=== PATIENT | male | born 1975 | race Caucasian/White ===

== ENCOUNTER → 2022-04-16 | Outpatient (CLI) | payer OTHER, SELFPAY ==
[2022-04-16 17:44] LABS: Absolute Lymphocyte Count 2.52 X10^3/uL (0.83-4.51); Absolute Neutrophil Count 5.1 X10^3/uL (2.0-7.7); Basophil# 0.04 X10^3/uL; Basophil% 0.5 % (0-1); Eosinophil# 0.11 X10^3/uL; Eosinophils% 1.3 % (0-5); Hemoglobin 15.9 g/dL (13.0-16.5); Lymphocyte # 2.52 X10^3/ul (0.83-4.51); Lymphocyte % 29.9 % (19-41); Mean Corp Hgb Conc 35.3 g/dL (32-36); Mean Corpuscular Hgb 32.1 pg (27.0-32.0); Mean Corpuscular Volume 90.9 fL (80-94); Mean Platelet Vol. 9.5 fl (6.2-12.0); Monocyte# 0.64 X10^3/uL; Monocyte% 7.6 % (0-10); NRBC Flagged by Analyzer 0 % (0-5); Neutrophil # 5.08 X10^3/uL (2.7-7.7); Neutrophil % 60.3 % (47-70); Platelet Count 233 K/mm3 (150-450); RBC Distribution Width CV 13.2 % (11.6-14.6); RBC Distribution Width SD 44.2 fl (35.1-43.9); Red Blood Count 4.95 M/mm3 (4.6-6.2); White Blood Count 8.4 K/mm3 (4.4-11.0)
[2022-04-16 18:07] LABS: ALB/GLOB Ratio 1.2 RATIO (0.9-2.4); AST(SGOT) 25 U/L (15-37); Alanine Aminotransfer ALT/SGPT 70 U/L (16-61); Albumin, Serum 3.9 g/dL (3.2-5.0); Alkaline Phosphatase 65 U/L (45-117); Anion Gap 9 (5-15); BUN 10 mg/dL (7-18); BUN/Creat Ratio 9.6 RATIO (10-20); Calcium,Total 9.2 mg/dL (8.5-10.1); Chloride 105 mmol/L (98-107); Cholesterol 247 mg/dL (200); Creatinine, Serum 1.04 mg/dL (0.70-1.30); EST Glomerular Filtration Rate 82 mL/min (>60); Est Glom Filt Rate - Afr Amer 99 mL/min (>60); Globulin 3.3 g/dL (2.2-4.2); Glucose 126 mg/dL (74-106); High Density Lipoprotein 42 mg/dL; Potassium 3.4 mmol/L (3.5-5.1); Protein, Total 7.2 g/dL (6.4-8.2); Sodium Level 140 mmol/L (136-145); Triglycerides 309 mg/dL; Very Low Density Lipoprotein 62 mg/dL (5-40)
== END | disposition home or self-care (01) ==
LOC: BFHLAB 14:42
PROVIDERS: PCP Family Medicine; Visit Provider Family Medicine
DX: Z00.00 Encounter for general adult medical examination without abnormal findings (principal)
CPT/HCPCS: 36415; 80053; 80061; 85025

== ENCOUNTER → 2022-05-11 | Outpatient (CLI) | payer OTHER, SELFPAY | END | disposition home or self-care (01) | LOC: SL 12:15 | PROVIDERS: PCP Family Medicine; Referring Provider Family Medicine; Visit Provider Family Medicine | DX: G47.10 Hypersomnia, unspecified (principal) | CPT/HCPCS: 95806 ==

== ENCOUNTER → 2022-05-18 | Outpatient (CLI) | payer OTHER, SELFPAY ==
[2022-05-26 18:07] LABS: Aldosterone, Serum 2.7 ng/dL (0.0-30.0); Renin, Plasma 0.803 ng/mL/hr (0.167-5.380)
[2022-05-27 15:44] LABS: ALDOSTERONE/RENIN RATIO 3.4 (0.0-30.0)
== END | disposition home or self-care (01) ==
LOC: BFHLAB 14:51
PROVIDERS: PCP Family Medicine; Visit Provider Family Medicine
DX: I10 Essential (primary) hypertension (principal); E87.6 Hypokalemia
CPT/HCPCS: 36415; 82088; 84244

== ENCOUNTER → 2022-05-21 | Outpatient (CLI) | payer OTHER, SELFPAY | END | disposition home or self-care (01) | LOC: SL 20:03 | PROVIDERS: PCP Family Medicine; Visit Provider Family Medicine | DX: G47.33 Obstructive sleep apnea (adult) (pediatric) (principal) | CPT/HCPCS: 95811 ==

== ENCOUNTER 2022-08-25 12:20 | Emergency (ER) | payer OTHER, SELFPAY ==
[2022-08-25 12:21] VITALS: BP 194/124; PULSE 97; RESP 16; TEMP 36.2; O2SAT 101; BMI 31.1
--- NOTE | 2022-08-25 12:36 | EDS_ITS ---
HPI History of Present Illness Chief Complaint: Chest Pain Detail of Chief Complaint: Midsternal chest discomfort, elevated blood pressure, foggy sensation Informant: patient Onset/Context/Timing Onset: Today (Early this morning after awakening) Activity at onset: sudden Timing: Continuous Quality: Positive for - (Discomfort) Location: Substernal Current Severity: Mild Maximum Severity: Moderate Worsened By: Nothing (Nothing specific patient believes it may be due to his elevated blood pressure.) Relieved By: Nothing Associated Symptoms: Positive for - (Previously documented); Negative for Nausea, Vomiting, Diaphoresis, Dyspnea, Cough, Fever, Lightheadedness, Acid Reflux or Palpitations Narrative Narrative: Patient is a 47-year-old male who was started on blood pressure meds. He states the blood pressure meds had no effect. After he was fitted and got his BiPAP machine for sleep apnea his pressure improved markedly. Patient presently complains of head discomfort, bilateral blurry vision, aching discomfort in his chest and left shoulder pain. He denies diaphoresis, nausea, vomiting. He denies dyspnea on exertion. Denies orthopnea or PND. Denies history of VTE. Denies risk factors for VTE. Denies leg pain, swelling discoloration. He denies history of hiatal hernia, reflux, peptic ulcer disease, black or maroon-colored stool. He denies intolerance to greasy or fried foods. He is status post appendectomy. He denies urologic. He denies double vision or loss of vision. Nuys trouble with speech or swallowing. He denies paresthesia, anesthesia or motor weakness upper or lower extremity. He denies problems with coordination or balance. Prior Similar Symptoms: No Recent Illness/Hospitalization: No CVD Risk Factors: Negative for Hypertension, Diabetes, Hypercholesterolemia, Family History 1' </=55 or Smoking PE Risk Factors: Negative for Recent Travel/Surgery, Recent Immobilization, Prior DVT or PE, Cancer or OCP + Smoking + >/=35 TAD Risk Factors: Negative for Marfan's Syndrome, Hypertension or Family History [facility] Medical History HTN (hypertension) Sleep apnea Home Medications labetalol 100 mg tablet 100 mg PO BID #60 tabs 08/25/22 [Rx Last Taken Unknown] metformin 500 mg tablet,extended release 24 hr 500 mg PO DAILY #30 tabs 08/25/22 [Rx Last Taken Unknown] Allergy/AdvReac Type Severity Reaction Status Date / Time No Known Allergies Allergy Verified 11/09/13 22:40 Social History (Updated 08/25/22 @ 12:[address] Keny Delarosa MD) Smoking Status: Former smoker substance use type: does not use ROS ROS ED Constitutional Constitutional ED: Denies chills, fever(s), subjective, sweats or weight loss Eyes Eyes: Reports blurry vision bilateral; Denies change in vision or diplopia ENT ENT ED: Denies ear pain, rhinorrhea or sore throat Cardiovascular Cardiovascular: Reports as per HPI and other Details: Additional information do cumented HPI narrative ; Denies orthopnea or paroxysmal nocturnal dyspnea Respiratory/Chest Respiratory/Chest: Denies cough, dyspnea, dyspnea on exertion, orthopnea, paroxysmal nocturnal dyspnea or sputum Gastrointestinal Gastrointestinal: Reports other Details: Additional information documented in t he HPI narrative ; Denies abdominal pain, constipation, diarrhea, melena, nausea or vomiting Genitourinary Genitourinary ED: Denies dysuria, hematuria or urinary frequency Musculoskeletal Musculoskeletal: Denies arthralgias, back pain, myalgias or neck pain Integumentary Denies Abrasions or rash Neurologic Neurologic: Reports headache(s); Denies paresthesias or other Endocrine Endocrinology: Denies cold intolerance or heat intolerance Hematologic/Lymphatic Hematologic/Lymphatic: Denies easy bleeding or easy bruising EXAM Physical Exam Const Vital Signs: 08/25/22 12:21 08/25/22 12:28 08/25/22 12:28 Temperature 97.1 F L Temperature Source Temporal Pulse Rate 97 Respiratory Rate 16 Respiratory Effort Short of Breath Respiratory Pattern Normal Blood Pressure 194/124 H Blood Pressure Mean 147 Pulse Ox 101 Oxygen Delivery Method Room Air 08/25/22 13:26 08/25/22 13:35 08/25/22 14:07 Temperature Temperature Source Pulse Rate 96 83 Respiratory Rate 16 14 Respiratory Effort Respiratory Pattern Blood Pressure 169/114 H 157/101 H 158/109 H Blood Pressure Mean 132 119 125 Pulse Ox 96 98 Oxygen Delivery Method Room Air Positive well nourished and well developed General Appearance ED: well developed and NAD; Negative for pallor HEENT Reports TM's clear and moist mucous membranes HEENT Narrative: TMs normal. Nares patent. Uvula midline. No deviation of tongue with protrusion. No abnormality the posterior pharynx. Tympanic Membrane ED: Yes TM's clear Eyes PERRL and EOMs intact bilaterally Eyes Narrative: Cup-to-disc ratio normal. There is no papilledema. There appears to be AV nicking noted on the right side. Difficult to see the vessels on the left. General Eye ED: Negative for pale conjunctiva or scleral icterus Neck no lymphadenopathy, supple and no JVD Chest Wall inspection of chest normal and palpation of chest normal Resp normal respiratory effort and clear to auscultation bilaterally Cardio regular rate, regular rhythm, S1 normal heart sound, S2 normal heart sound and no murmurs GI normal to inspection, nondistended, normoactive bowel sounds, soft to palpation, non-tender, non-distended and no masses; Negative for hepatosplenomegaly Back/Spine no CVA tenderness and no thoracic nor lumbar tenderness Extremity normal to inspection Extremity Narrative: There is no asymmetry, swelling, discoloration, leg vein distention, palpable cords or tenderness along the distribution of the deep venous system. General Extremety ED: Negative for edema or pulses abnormal General Extremity: Negative for edema or pulses abnormal Neuro oriented x3, CN's II-XII intact bilaterally, no sensory deficits noted and gait normal Sensorium / Orientation: awake and alert Motor Exam: strength 5/5 throughout Psych mental status grossly normal Skin no rashes or lesions noted and no wounds General Skin Exam: Negative for jaundice or pallor MDM MDM MDM Narrative Medical decision making narrative: Patient has elevated blood pressure of 194/124. Chest pain may be due to elevated afterload versus cardiac ischemia versus other cause. Will obtain EKG, troponin, CBC to assess for anemia, basic metabolic panel to assess renal function. UA was obtained to assess for proteinuria or hematuria. Accessed [facility]. There are no old records available for review. Patient's last hospitalization was in 2014. New Blood pressure as of 07/14/2005 is 159/109. This is equivalent to approximately 15?20% decrease from when he presented. Patient's primary care physician Dr. Hernández was paged to discuss his presentation and need for follow-up. Will recommend labetalol 100 mg twice daily for his blood pressure because of elevated blood pressure and heart rate and will discuss starting patient on metformin since his blood sugar is elevated at 220 and he has evidence of glucosuria. Lab Data Attestation: I reviewed the patient's lab results. Lab results narrative: CBC is unremarkable. Basic metabolic panel does not elevated glucose of 220. CO2 anion gap is normal. Creatinine is elevated. Prior creatinine levels have been normal. Urine is remarkable for mild proteinuria and glucose. Labs: Laboratory Results - last 24 hr 08/25/22 08/25/22 08/25/22 12:35 12:35 13:55 WBC 9.3 RBC 5.17 Hgb 16.2 Hct 47.2 MCV 91.3 MCH 31.3 MCHC 34.3 RDW Std Deviation 40.6 RDW Coeff of Art 12.1 Plt Count 240 MPV 9.4 Sodium 138 Potassium 3.7 Chloride 102 Carbon Dioxide 28.0 Anion Gap 8 BUN 19 H Creatinine 1.36 H Estim Creat Clear Calc 74.49 Est GFR (MDRD) Af Amer 72 Est GFR (MDRD) Non-Af 60 BUN/Creatinine Ratio 14.0 Glucose 220 H Calcium 9.4 Troponin I High Sens 6 Urine Color Yellow Urine Clarity Clear Urine pH 6.0 Ur Specific [place] 1.015 Urine Protein 15 H Urine Glucose (UA) 250 H Urine Ketones Negative Urine Occult Blood Negative Urine Nitrite Negative Urine Bilirubin Negative Urine Urobilinogen Normal Ur Leukocyte Esterase Negative Urine RBC 0 SEEN Urine WBC 0-5 SEEN Ur Squamous Epith Cells 0-5 SEEN Urine Bacteria 0 SEEN Urine Mucus 0 SEEN Rhythm Strip Rhythm Strip: Sinus Rhythm Rate: 87 Ectopy: None EKG Initial EKG: Attestation: I personally reviewed and interpreted this EKG as follows: Interpretation: Sinus Rhythm (Rate is 95. AL interval is 130 ms. QRS durations 96 ms. QT duration 3 and 52 ms. [place] is normal. There is 1/2 mm of J-point elevation in V2. ST segment is straightened. There is no concavity or convexly to the ST segments. This is the only lead the abnormalities noted in.) Treatment and Re-Evaluation Narrative: We will treat with labetalol for his elevated blood pressure. Most recent blood pressure was 169/114 at 1322. He also will need referral to his primary care doctor for hyperglycemia, new onset diabetes Case was discussed with Dr. Hernández. Patient to call the office for follow-up in 1 to 2 weeks. He was prescribed labetalol 100 mg twice daily and metformin. Discharge Plan Triage Chief Complaint: Chest Pain Other Complaint: Hypertension Shortness of Breath ED Provider: Keny Delarosa Dx/Rx/DC Orders Clinical Impression: Hypertension, Elevated serum creatinine, Isolated proteinuria, New onset type 2 diabetes mellitus Instructions: ED Hypertension New Begin Treatment, ED Hyperglycemia New Susp Diabetes Prescriptions: New labetalol 100 mg tablet 100 mg PO BID Qty: 60 0RF metformin 500 mg tablet extended release 24 hr 500 mg PO DAILY Qty: 30 0RF Primary Care Provider: Femi Hernández Referrals: Trish Koenig DO [Med Staff - Active Staff] - 1-2 Weeks Disposition Disposition: Home, Self Care
[2022-08-25 12:53] LABS: Hematocrit 47.2 % (40-54); Hemoglobin 16.2 g/dL (13.0-16.5); Mean Corp Hgb Conc 34.3 g/dL (32-36); Mean Corpuscular Hgb 31.3 pg (27.0-32.0); Mean Corpuscular Volume 91.3 fL (80-94); Mean Platelet Vol. 9.4 fl (6.2-12.0); Platelet Count 240 K/mm3 (150-450); RBC Distribution Width CV 12.1 % (11.6-14.6); RBC Distribution Width SD 40.6 fl (35.1-43.9); Red Blood Count 5.17 M/mm3 (4.6-6.2); White Blood Count 9.3 K/mm3 (4.4-11.0)
[2022-08-25 13:02] LABS: Anion Gap 8 (5-15); BUN 19 mg/dL (7-18); Calcium,Total 9.4 mg/dL (8.5-10.1); Chloride 102 mmol/L (98-107); Creatinine, Serum 1.36 mg/dL (0.70-1.30); EST Glomerular Filtration Rate 60 mL/min (>60); Est Glom Filt Rate - Afr Amer 72 mL/min (>60); Estimated Creatinine Clearance 74.49 ml/min; Glucose 220 mg/dL (74-106); Potassium 3.7 mmol/L (3.5-5.1); Sodium Level 138 mmol/L (136-145); Troponin-I HS 6 pg/mL (3.0-78.0)
[2022-08-25 13:26] VITALS: BP 169/114; PULSE 96; RESP 16; O2SAT 96
[2022-08-25] MEDS: Labetalol (Prefilled) 20 MG/4 ML 10 MG IV (13:27)
[2022-08-25 13:35] VITALS: BP 157/101
[2022-08-25 14:00] LABS: Bacteria 0 SEEN /hpf (None Seen); Mucous, Urine 0 SEEN /hpf (<or=2+); Red Blood Cells-Urine 0 SEEN /hpf (0-5)
[2022-08-25 14:01] LABS: Color, Urine Yellow (Yellow); Glucose, Dipstick 250 mg/dl (Normal); Ketone-Dipstick Negative (Negative); Leukocyte Esterase-Dipstick Negative /ul (Negative); Nitrite-Dipstick Negative (Negative); Occult Blood-Urine Negative /ul (Negative); Protein-Dipstick 15 mg/dl (Negative); Specific Gravity, Urine 1.015 (1.002-1.030); Urine Bilirubin Dipstick Negative (Negative); Urine Clarity Clear (Clear); Urine Urobilinogen Normal (Normal)
[2022-08-25 14:07] VITALS: BP 158/109; PULSE 83; RESP 14; O2SAT 98
[2022-08-25 14:10] LABS: Squamous Epithelial Cells - UA 0-5 SEEN /hpf (0-5); White Blood Cells 0-5 SEEN /hpf (0-5)
[2022-08-25 14:44] VITALS: BP 145/95; PULSE 81; RESP 18; O2SAT 98
== END 2022-08-25 14:44 | disposition home or self-care (01) ==
PROVIDERS: Emergency Provider Emergency Medicine; PCP Family Medicine; Visit Provider Emergency Medicine
DX: E11.65 Type 2 diabetes mellitus with hyperglycemia (principal); G47.30 Sleep apnea, unspecified; I10 Essential (primary) hypertension; Z87.891 Personal history of nicotine dependence; R06.02 Shortness of breath; R07.89 Other chest pain; M25.512 Pain in left shoulder; R51.9 Headache, unspecified; Z79.899 Other long term (current) drug therapy; R79.89 Other specified abnormal findings of blood chemistry; R80.0 Isolated proteinuria
CPT/HCPCS: 80048; 81001; 84484; 85027; 93005; 96374; 99285; A4216

== ENCOUNTER → 2022-09-09 | Outpatient (CLI) | payer OTHER, SELFPAY ==
[2022-09-09 18:10] LABS: Hemoglobin A1c 7.6 % (3.8-5.6)
== END | disposition home or self-care (01) ==
LOC: BFHLAB 15:53
PROVIDERS: PCP Family Medicine; Visit Provider Family Medicine
DX: I10 Essential (primary) hypertension (principal); R73.9 Hyperglycemia, unspecified
CPT/HCPCS: 36415; 83036

== ENCOUNTER → 2022-11-09 | Outpatient (CLI) | payer OTHER, SELFPAY ==
[2022-11-09 18:26] LABS: Hemoglobin A1c 6.6 % (3.8-5.6)
[2022-11-09 18:48] LABS: ALB/GLOB Ratio 1.3 RATIO (0.9-2.4); AST(SGOT) 57 U/L (15-37); Alanine Aminotransfer ALT/SGPT 132 U/L (16-61); Albumin, Serum 4.3 g/dL (3.2-5.0); Alkaline Phosphatase 61 U/L (45-117); Anion Gap 8 (5-15); BUN 11 mg/dL (7-18); BUN/Creat Ratio 9.4 RATIO (10-20); Calcium,Total 9.4 mg/dL (8.5-10.1); Chloride 105 mmol/L (98-107); Cholesterol 199 mg/dL (200); Creatinine, Serum 1.17 mg/dL (0.70-1.30); EST Glomerular Filtration Rate 71 mL/min (>60); Est Glom Filt Rate - Afr Amer 86 mL/min (>60); Globulin 3.3 g/dL (2.2-4.2); Glucose 119 mg/dL (74-106); High Density Lipoprotein 53 mg/dL; Potassium 3.7 mmol/L (3.5-5.1); Protein, Total 7.6 g/dL (6.4-8.2); Sodium Level 139 mmol/L (136-145); Thyroid Stim Hormone (TSH) 1.32 uIU/mL (0.358-3.74); Triglycerides 368 mg/dL; Very Low Density Lipoprotein 74 mg/dL (5-40)
[2022-11-16 11:08] LABS: Testosterone, Free 5.03 ng/dL (5.00-21.00); Testosterone, Total 359 ng/dL (264-916)
== END | disposition home or self-care (01) ==
LOC: BFHLAB 14:34
PROVIDERS: PCP Family Medicine; Referring Provider Family Medicine; Visit Provider Family Medicine
DX: R53.83 Other fatigue (principal); E11.9 Type 2 diabetes mellitus without complications; I10 Essential (primary) hypertension; E78.5 Hyperlipidemia, unspecified
CPT/HCPCS: 36415; 80053; 80061; 83036; 84402; 84403; 84443

== ENCOUNTER → 2022-12-17 | Outpatient (CLI) | payer OTHER, SELFPAY | END | disposition home or self-care (01) | LOC: BFHLAB 15:41 | PROVIDERS: PCP Family Medicine; Referring Provider Family Medicine; Visit Provider Family Medicine | DX: R79.89 Other specified abnormal findings of blood chemistry (principal) | CPT/HCPCS: 36415; 84403 ==

== ENCOUNTER → 2022-12-24 | Outpatient (CLI) | payer OTHER, SELFPAY ==
--- NOTE | 2022-12-24 15:25 | US_ITS ---
STUDY: SUPERFICIAL ULTRASOUND - BILATERAL AXILLA REASON FOR EXAM: Male, 47 years old. B/L AXILLARY FULLNESS AND INTERMITTENT PAIN TECHNIQUE: A superficial ultrasound was performed with real-time and static birch-scale imaging. COMPARISON: None. FINDINGS: Bilateral screening of the axilla shows no definite pathology. There are bilateral lymph nodes, which is typical for the axilla. Largest is 2.9 cm on the left with a fatty hilum. No suspicious mass. No fluid collection. US/Ext Non Vasc Limited/Soft Tiss IMPRESSION: Bilateral axillary lymph nodes with no evidence for pathology. Electronically Signed: Arnold Pruitt MD at 16:54 EDT ,
== END | disposition home or self-care (01) ==
LOC: US 15:08
PROVIDERS: PCP Family Medicine; Referring Provider Family Medicine; Visit Provider Family Medicine
DX: M79.601 Pain in right arm (principal); M79.602 Pain in left arm
CPT/HCPCS: 76882

== ENCOUNTER → 2024-12-19 | Outpatient (CLI) | payer OTHER, SELFPAY ==
[2024-12-19 17:38] LABS: Absolute Lymphocyte Count 2.19 X10^3/uL (0.83-4.51); Absolute Neutrophil Count 3.5 X10^3/uL (2.0-7.7); Basophil# 0.04 X10^3/uL; Basophil% 0.6 % (0-1); Eosinophil# 0.09 X10^3/uL; Eosinophils% 1.4 % (0-5); Hematocrit 42.9 % (40-54); Lymphocyte # 2.19 X10^3/ul (0.83-4.51); Mean Corpuscular Hgb 31.6 pg (27.0-32.0); Mean Corpuscular Volume 90.3 fL (80-94); Mean Platelet Vol. 10.1 fl (6.2-12.0); Monocyte% 9.3 % (0-10); NRBC Flagged by Analyzer 0 % (0-5); Neutrophil # 3.51 X10^3/uL (2.7-7.7); Neutrophil % 54.4 % (47-70); Platelet Count 214 K/mm3 (150-450); RBC Distribution Width CV 12.5 % (11.6-14.6); RBC Distribution Width SD 41.4 fl (35.1-43.9); Red Blood Count 4.75 M/mm3 (4.6-6.2); White Blood Count 6.5 K/mm3 (4.4-11.0)
[2024-12-19 18:30] LABS: ALB/GLOB Ratio 2.1 RATIO (0.9-2.4); AST(SGOT) 28 U/L (<=37); Alanine Aminotransfer ALT/SGPT 46 U/L (<=46); Albumin, Serum 4.6 g/dL (3.5-5.0); Alkaline Phosphatase 73 U/L (40-129); Anion Gap 17 (5-15); BUN 16 mg/dL (4-19); BUN/Creat Ratio 15.4 RATIO (10-20); Calcium,Total 9.6 mg/dL (7.6-11.0); Carbon Dioxide 20.6 mmol/L (21.0-32.0); Chloride 98 mmol/L (98-108); Creatinine, Serum 1.06 mg/dL (0.70-1.20); EST Glomerular Filtration Rate 87 (>60); Globulin 2.2 g/dL (2.2-4.2); Glucose 249 mg/dL (70-99); Potassium 3.8 mmol/L (3.3-5.1); Protein, Total 6.7 g/dL (5.9-8.4); Sodium Level 136 mmol/L (133-145); Total Bilirubin 0.27 mg/dL (0.00-1.30)
[2024-12-19 18:57] LABS: Cholesterol 222 mg/dL (<=200); High Density Lipoprotein 37 mg/dL; Low Density Lipoprotein Calc. 0 mg/dL; Triglycerides 926 mg/dL; Very Low Density Lipoprotein 185 mg/dL (5-40); cholesterol:hdl ratio screen 6.07
[2024-12-19 19:04] LABS: Hemoglobin A1c 8.2 % (<=5.6)
== END | disposition home or self-care (01) ==
LOC: BFHLAB 15:45
PROVIDERS: PCP Family Medicine; Visit Provider Family Medicine
DX: Z00.00 Encounter for general adult medical examination without abnormal findings (principal); E11.9 Type 2 diabetes mellitus without complications
CPT/HCPCS: 36415; 80053; 80061; 83036; 85025

== ENCOUNTER → 2024-12-20 | Outpatient (CLI) | payer OTHER, SELFPAY ==
[2024-12-20 18:58] LABS: Microalbumin,Random Urine < 12.0 mg/L (NO RANGE EST.); Microalbumin:Creatinine Ratio UNABLE TO CALCULATE mg/g CRE
== END | disposition home or self-care (01) ==
LOC: LABSPEC 15:50
PROVIDERS: PCP Family Medicine; Visit Provider Family Medicine
DX: Z00.00 Encounter for general adult medical examination without abnormal findings (principal); E11.9 Type 2 diabetes mellitus without complications
CPT/HCPCS: 82043; 82570

== ENCOUNTER 2025-02-22 06:47 | Day surgery (SDC) | payer OTHER, SELFPAY ==
--- NOTE | 2025-02-21 14:23 | PAT.ANE_ITS ---
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 When Was Last Pacemaker Check QUESTION #4 FULL TEXT: You/Your Family Experience fever (hyperthermia) with Anesthesia Last Oral Intake Last Oral intake: Last Oral Intake NPO since Meds taken in AM with sips of water? 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 Female No 02/21/25 11:02 HX of Motion Sickness No 02/21/25 11:02 HX of N/V After Surgery No 02/21/25 11:02 Non-Smoker Yes 02/21/25 11:02 Duration of Surgery greater No 02/21/25 11:02 than 60 minutes Number of Risk Factors 1 02/21/25 11:02 PONV Score Low Risk 02/21/25 11:02 Height & Weight Height & Weight: Anesthesia: Height & Weight Height 6 ft 01/03/23 14:33 Respiratory Assessment Respiratory Assessment - pneumatic system conveyor operator: Respiratory Tract Infection Hx - pneumatic system conveyor operator Hx Respiratory Tract Infection No 02/21/25 11:02 STOP Sleep Apnea STOP Sleep Apnea - pneumatic system conveyor operator: STOP Sleep Apnea - pneumatic system conveyor operator Hx Hypertension Yes: CONTROLLED WITH MED 02/21/25 11:02 Hx Sleep Apnea Yes 02/21/25 11:02 CPAP No: NONCOMPLIANT 02/21/25 11:02 BIPAP No 02/21/25 11:02 Do you snore loudly (louder than talking or can be heard Do you often feel tired/ fatigued/ sleepy during daytime? Has anyone observed you stop breathing during sleep? STOP Results Positive 02/21/25 11:02 QUESTION #5 FULL TEXT : Do you snore loudly (louder than talking or can be heard through closed doors)? 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 Specify any problems Hx of Preganancy in last 3 N/A 02/21/25 11:02 Months Nurse Filling Out Transfusion NBUCHER 02/21/25 11:02 & Questions: Date: 02/21/25 02/21/25 11:02 Time: 11:03 02/21/25 11:02 Patient unable to answer at this time (ie. confused, unrespo /Reproduction History /Reproductive History - pneumatic system conveyor operator: /Reproductive Hx- pneumatic system conveyor operator Hx Now Gestational Age (in weeks): EDC: Hx Hx Para Hx Section SAB PFSH Medical History (Updated 02/21/25 @ 11:06 by Annemarie Mcclure) Wears contact lenses Wears glasses CPAP (continuous positive airway pressure) dependence Former smoker Allergies High cholesterol Diabetes HTN (hypertension) Sleep apnea Home Medications ?Medication ?Instructions ?Recorded ?Last Taken ?Type metformin 500 mg tablet,extended 500 mg PO DAILY #30 t abs 08/25/22 Unknown Rx release 24 hr labetalol 200 mg tablet 200 mg PO BID 01/03/23 Unkno wn History rosuvastatin 10 mg tablet 10 mg PO DAILY 01/03/23 Unkn own History Allergy/AdvReac Type Severity Reaction Status Date / Time No Known Allergies Allergy Verified 02/21/25 10:59 Family History (Updated 01/03/23 @ 14:33 by Sunshine Valentin) Grandmother Colon cancer Mother Hypertension Surgical History (Updated 02/21/25 @ 11:06 by Annemarie Mcclure) S/P appendectomy S/P knee surgery Social History (Updated 08/25/22 @ 12:[address] Keny Delarosa MD) Smoking Status: Former smoker substance use type: does not use Audit: Pertinent Findings Pertinent Findings EKG Perinent findings: August 25, 2022. Normal sinus rhythm. Nonspecific T wave abnormality. Current Visit Impressions Current Visit Impressions: December 19, 2024. Last hemoglobin A1c is 8.2. This is elevated but within margin of error for lab results. Okay to proceed. Recommendation Anesthesia Recommendation Anesthesia recommendation: OPTIMIZED for anesthesia
[2025-02-22] VITALS (8 sets, daily range): BP systolic 101–135; BP diastolic 64–92; PULSE 65–80; RESP 15–18; TEMP 36.2–37; O2SAT 96–100; BMI 30.7
--- OUTSIDE RECORDS SUMMARY | 2025-02-22 07:08 | XMS RPT_ITS | CCD ---
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 Technician Name Role Phone Unavailable Primary Care Provider Unavailabl e Simakaylee MILLER, Kira A Primary Care Provider KIRA HERNÁNDEZ A Primary Care Unavailable ETSCHEIDT, RAS Referring Unavailable ETSCHEIDT, RAS Referring Unavailable O'MALACHI, KALINA Attending Unavailable SIMA, KIRA A Primary Care Unavailable ETSCHEIDT, RAS Referring Unavailable O'MALACHI, KALINA Attending Unavailable SIMA, KIRA A Primary Care Unavailable ETSCHEIDT, RAS Referring Unavailable O'MALACHI, KALINA Attending Unavailable SIMA, KIRA A Primary Care Unavailable ETSCHEIDT, RAS Referring Unavailable O'MALACHI, KALINA Attending Unavailable SIMA, KIRA A Primary Care Unavailable ETSCHEIDT, RAS Referring Unavailable O'MALACHI, KALINA Attending Unavailable SIMA, KIRA A Primary Care Unavailable ETSCHEIDT, RAS Referring Unavailable O'MALACHI, KALINA Attending Unavailable SIMA, KIRA A Primary Care Unavailable ETSCHEIDT, RAS Referring Unavailable O'MALACHI, KALINA Attending Unavailable SIMA, KIRA A Primary Care Unavailable ETSCHEIDT, RAS Referring Unavailable THOENNES, MCKENA Attending Unavailable SIMA, KIRA A Primary Care Unavailable SIMA, KIRA A Primary Care Unavailable ETSCHEIDT, RAS Referring Unavailable O'MALACHI, KALINA Attending Unavailable SIMA, KIRA A Primary Care Unavailable ETSCHEIDT, RAS Referring Unavailable THOENNES, MCKENA Attending Unavailable SIMA, KIRA A Primary Care Unavailable SIMA, KIRA A Primary Care Unavailable ETSCHEIDT, RAS Referring Unavailable O'MALACHI, KALINA Attending Unavailable SIMA, KIRA A Primary Care Unavailable ETSCHEIDT, RAS Referring Unavailable Sima DO Kira A Primary Care Provider Dr. Kira Hernández DO Primary Care Provider Dr. Kira Hernández DO Attending Provider [phone] Kira Hernández Attending Unavailable Kira Hernández Primary Care Unavailable Sascha Guzman Attending Unavailable Kira Hernández Primary Care Unavailable Kira Hernández Referring Unavailable Kira Hernández Attending Unavailable Kira Hernández Primary Care Unavailable Kira Hernández Referring Unavailable Kira Hernández Attending Unavailable Kira Hernández Primary Care Unavailable Medications Current Medications Medication Drug Class(es) Dates Sig (Normalized) Sig (Original) acetaminophen 325 mg / oxyCODONE hydrochloride 5 mg oral tablet (6 sources) Opioid Agonist Start: 11-10-2013 take 1 tablet by mouth every four hours as needed Oxycodone-Acetami nophen Active 1 - 2 TABLET PO EVERY 4 HOURS NEEDED November 09, 2013 11:00pm Start: 11-09-2013 take 1 tablet by sheila th every eight hours as needed Oxycodone-Acetaminophen Active 1 TABLET PO EVERY 8 HOURS NEEDED November 08, 2013 11:00pm amoxicillin 875 mg / clavulanate 125 mg oral tablet (3 sources) Penicillin-class Antibacterial Start: 09-20-2022 End: 09-27-2022 take 1 tablet by mouth twice daily amoxicillin-clavulanic acid (AUGMENTIN) 875-125 mg per tablet Indications: Acute non-recurrent sinusitis, unspecified location Take 1 tablet by mouth twice daily for 7 days. 14 tablet 0 09/20/2022 09/27/2022 Active Start: 09-01-2022 End: 09-06-2022 take 1 tablet by mouth twice daily amoxicillin-clavulanic acid (AUGMENTIN) 875-125 mg per tablet Take 1 tablet by mouth twice daily for 5 days. 10 tablet 0 09/01/2022 09/06/2022 Active Start: 12-28-2021 End: 01-02-2022 take 1 tablet by mouth twice daily amoxicillin-clavulanic acid (AUGMENTIN) 875-125 mg per tablet Take 1 tablet by mouth twice daily for 5 days. 10 tablet 0 12/28/2021 01/02/2022 Active Comment on above: Take 1 tablet by sheila th twice daily for 5 days. Take 1 tablet by sheila twice daily for 7 days. diazePAM 5 mg oral tablet (3 sources) Benzodiazepine Start: 11-11-19 take 5 mg by mouth three times daily as needed Diazepam Active 5 MG PO 3 TIMES DAILY NEEDED November 09, 2013 11:00pm fexofenadine (13 sources) Histamine-1 Receptor Antagonist fexofenadine HCl (SHEY ALLERGY ORAL) Take by mouth. Active fexofenadine HCl (SHEY ALLERGY ORAL) Take by mouth. 0 Active Comment on above: Take by mouth. fluticasone propionate 0.05 mg/actuat metered dose nasal spray (15 sources) Corticosteroid Start: 01-03-2023 Fluticasone Propionate 50 mcg/actuation spray,suspension Active 1 NMA INTRANASAL DAILY January 03, 2023 12:00am administer into each nostril Start: 08-03-2020 take 1 spray(s) nasa l route once daily at bedtime fluticasone (FLONASE) 50 mcg/actuation nasal spray Use 1 [place] in each nostril daily at bedtime. 18.2 mL 08/03/2020 Active Comment on above: Use 1 [place] in each nostril daily at bedtime. labetalol hydrochloride 200 mg oral tablet (20 sources) beta-Adrenergic Tran Start: 01-03-2023 take 1 tablet by mouth twice daily Labetalol 200 mg tablet Active 200 mg PO TWICE A DAY January 03, 2023 12:00am Start: 08-25-2022 End: 01-03-2023 take 1 tablet by mouth twice daily Labetalol 100 mg tablet Discontinued 100 mg PO TWICE A DAY August 25, 2022 1:00am January 03, 2023 2:35pm Comment on above: Take 100 mg by mouth twice daily. loratadine 10 mg oral tablet (2 sources) Start: take 1 tablet by mouth twice daily Loratadine (Claritin) 10 mg tablet Active 10 mg PO TWICE A DAY January 03, 2023 12:00am 24 hr metFORMIN hydrochloride 500 mg extended release oral tablet (19 sources) Biguanide Start: 023 take 1 tablet by mouth once daily Metformin 500 mg tablet extended release 24 hr Active 500 mg PO DAILY August 25, 2022 1:00am Comment on above: Take 500 mg by mouth once daily. pantoprazole 40 mg delayed release oral tablet (2 sources) Proton Pump Inhibitor Start: 023 Pantoprazole 40 mg tablet,delayed release (DR/EC) Active NMA PO January 03, 2023 12:00am rosuvastatin calcium 10 mg oral tablet (2 sources) HMG-CoA Reductase Inhibitor Start: Rosuvastatin 10 mg tablet Active NMA PO January 03, 2023 12:00am triamcinolone acetonide 0.055 mg/actuat metered dose nasal spray (13 sources) Corticosteroid take 2 spray(s) by inhalation once daily triamcinolone acetonide (NASACORT AQ) 55 mcg nasal inhaler Use 2 Sprays in the nose once daily. Active Comment on above: Use 2 Sprays in the nose once daily. Completed/Discontinued Medications Medication Drug Class(es) Dates Sig (Normalized) Sig (Original) benzonatate 100 mg oral capsule (2 sources) Non-narcotic Antitussive Start: 09-01-2022 End: 09-20-2022 take 1 capsule by mouth every eight hours as needed benzonatate (TESSALON PERLES) 100 mg capsule Take 1 capsule by mouth three times daily as needed for cough. 21 capsule 0 09/01/2022 09/20/2022 Discontinued (Course of therapy completed) Comment on above: Take 1 capsule by mo [facility] three times daily as needed for cough. cyclobenzaprine hydrochloride 10 mg oral tablet (6 sources) Muscle Relaxant Start: 11-09-2013 End: 09-20-2022 take 1 tablet by mouth three times daily as needed for muscle spasms cyclobenzaprine (FLEXERIL) 10 mg tablet Indications: Lumbar strain, sequela Take 1 tablet by mouth three times daily as needed for Muscle Spasm (can make you drowsy). 30 tablet 0 12/10/2015 09/20/2022 Discontinued Comment on above: [facility] daily as needed for Muscle Spasm (can make you drowsy). naproxen 500 mg oral tablet (13 sources) Nonsteroidal Anti-inflammatory Drug Start: 11-10-2013 End: 11-12-2013 take 1 tablet by mouth twice daily Naproxen 500 MG tablet Discontinued 500 mg PO TWICE A DAY November 10, 2013 12:00am November 12, 2013 12:25pm predniSONE 10 mg oral tablet (4 sources) Start: 09-01-2022 End: 09-20-2022 predniSONE (DELTASONE) 10 mg tablet Take 4 tabs daily for 3 days, then 2 tabs daily for 3 days, then 1 tab daily for 3 days with food. 21 tablet 0 09/01/2022 09/20/2022 Discontinued (Course of therapy completed) Start: 12-28-2021 End: 01-02-2022 take 2 tablets by mouth once daily predniSONE (DELTASONE) 20 mg tablet Take 2 tablets by mouth once daily for 5 days. 10 tablet 0 12/28/2021 01/02/2022 Active Start: 12-10-2015 End: 12-28-2021 predniSONE (DELTASONE) 10 mg tablet Indications: Lumbar strain, sequela Take 4 tabs daily for 3 days, then 2 tabs daily for 3 days, then 1 tab daily for 3 days with food. 21 tablet 0 12/10/2015 12/28/2021 Discontinued Comment on above: Take 2 tablets by mo uth once daily for 5 days. Take 4 tabs daily fo r 3 days, then 2 tabs daily for 3 days, then 1 tab daily for 3 days with food. Problems Problem Classification Problem Date Documented Date Episodic/Chronic Allergic reactions (2 sources) Allergic condition; Translations: [Allergy, unspecified, initial encounter] 01-03-2023 Episodic Diabetes mellitus without complication (10 sources) Type 2 diabetes mellitus; Translations: [Type 2 diabetes mellitus without complications] Onset: 06-26-2024 08-25-2022 Chronic Disorders of lipid metabolism (2 sources) Hypercholesterolemia; Translations: [Pure hypercholesterolemia, unspecified] 01-03-2023 Chronic Essential hypertension (7 sources) Hypertensive disorder; Translations: [Essential (primary) hypertension] 08-25-2022 Chronic Genitourinary symptoms and ill-defined conditions (7 sources) Isolated proteinuria; Translations: [Isolated proteinuria] 08-25-2022 Episodic Joint disorders and dislocations; trauma-related (20 sources) Derangement of right knee; Translations: [Unspecified internal derangement of right knee] Onset: 04-27-2023 04-27-2023 Chronic Other connective tissue disease (2 sources) Pain in axilla; Translations: [Pain in left upper arm] 01-03-2023 Episodic Other ear and sense organ disorders (1 source) Otalgia, left ear; Translations: [Otalgia, unspecified] Episodic Other lower respiratory disease (2 sources) Cough; Translations: [Cough] Episodic Other lower respiratory disease (2 sources) Rib pain; Translations: [Pleurodynia] Episodic Other lower respiratory disease (1 source) Cough; Translations: [Acute cough] 09-01-2022 Episodic Other screening for suspected conditions (not mental disorders or infectious disease) (7 sources) Serum creatinine raised; Translations: [Other specified abnormal findings of blood chemistry] 08-25-2022 Episodic Other upper respiratory disease (1 source) Chronic rhinitis; Translations: [Unspecified sinusitis (chronic)] Chronic Other upper respiratory infections (1 source) Acute sinusitis; Translations: [Acute sinusitis, unspecified] Episodic Spondylosis; intervertebral disc disorders; other back problems (13 sources) Herniation of nucleus pulposus of lumbar intervertebral disc; Translations: [Other intervertebral disc displacement, lumbar region] Onset: 11-14-2013 11-14-2013 Chronic Spondylosis; intervertebral disc disorders; other back problems (20 sources) Low back pain; Translations: [Low back pain] Onset: 11-15-2013 11-15-2013 Episodic Substance-related disorders (10 sources) Tobacco dependence syndrome; Translations: [Nicotine dependence, unspecified, uncomplicated] 11-10-2013 Chronic Results Test Name Value Interpretation Reference Range Facility MR/Kwasi 02-21-2025 MR/CARLOS A ORTIZ [facility] Medical Records Department [address] [place] [id number] PAT - Anesthesia 02/21/25 1423 MR#: [id number] Acct: [id number] Name: CHASIDY MAE Rep #: [id number] : 1975 50 From: Geoffrey Guerrero MD PCP: Dr. 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 When Was Last Pacemaker Check QUESTION #4 FULL TEXT: You/Your Family Experience fever (hyperthermia) with Anesthesia Last Oral Intake Last Oral intake: Last Oral Intake NPO since Meds taken in AM with sips of water? 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 Has anyone observed you stop breathing during sleep? STOP Results Positive 02/21/25 11:02 QUESTION #5 FULL TEXT : Do you snore loudly (louder than talking or can be heard through closed doors)? 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 Specify any problems Hx of Preganancy in last 3 N/A 02/21/25 11:02 Months Nurse Filling Out Transfusion NBUCHER 02/21/25 11:02 Questions: Date: 02/21/25 02/21/25 11:02 Time: 11:03 02/21/25 11:02 Patient unable to answer at this time (ie. 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 workers: /Reproductive Hx- farm forestry and garden workers Hx Now Gestational Age (in weeks): EDC: Hx Hx Para Hx Section SAB PFSH Medical History (Updated 02/21/25 @ 11:06 by Annemarie Mcclure) Wears contact lenses Wears glasses CPAP (continuous positive airway pressure) dependence Former smoker Allergies High cholesterol Diabetes HTN (hypertension) Sleep apnea Home Medications ???Medication ???Instructions ???Recorded ???Last Taken ???Type metformin 500 mg tablet,extended 500 mg PO DAILY #30 tabs 08/25/22 Unknown Rx release 24 hr labetalol 200 mg tablet 200 mg PO BID 01/03/23 Unknown His tory rosuvastatin 10 mg tablet 10 mg PO DAILY 01/03/23 Unknown Hi story Allergy/AdvReac Type Severity Reaction Status Date / Time No Known Allergies Allergy Verified 02/21/25 10:59 Family History (Updated 01/03/23 @ 14:33 by Sunshine Valentin) Grandmother Colon cancer Mother Hypertension Surgical History (Updated 02/21/25 @ 11:06 by Annemarie Mcclure) S/P appendectomy S/P knee surgery (more content not included)... Normal [facility] Microalb:Creat Ratio,Random URon 12-20-2024 Creatinine [Mass/Vol] 138.00 mg/dL Normal 39.00- 259.0 0 [facility] Comment on above: Performed By: #### L 502.0250 #### [facility] [address] [place], [place], [id number] MALB:CREAT UNABLE TO CALCULATE Normal [facility] Comment on above: Performed By: #### L 502.0250 #### [facility] [address] [place], [place], [id number] MICROALBUMIN,UR < 12.0 Normal NO RANGE EST. [facility] Comment on above: Performed By: #### L 502.0250 #### [facility] [address] [place], [place], [id number] Microalbumin/creat ratio urO rdered By: Kira Hernández on 12-20-2024 Urine microalbumin/creatinin e ratio measurement UNABLE TO CALCULATE mg/g CRE [facility] Random urine creatinine teresita urement (mass/volume)Ordered By: Kira Hernández on 12-20-2024 Creatinine Unsp time (U) [Mass/Vol] 138.00 mg/dL 39.00-259.0 0 [facility] Urine albumin measurement wi detection limit of 20 mg/L or less (mass/volume)Ordered By: Kira Hernández on 12-20-2024 Albumin DL <= 20 mg/L (U) [Mass/Vol] < 12.0 mg/L NO RANGE EST. [facility] Absolute lymphocyte countOrd ered By: Kira Hernández on 12-19-2024 Lymphocytes Auto (Unsp spec) [#/Vol] 2.19 10*3/uL 0.83-4.51 [facility] Absolute neutrophil countOrd ered By: Kira Hernández on 12-19-2024 Neutrophils (Bld) [#/Vol] 3.5 10*3/uL 2.0-7.7 [facility] Anion gap in Serum or Plasma Ordered By: Kira Hernández on 12-19-2024 Anion gap [Moles/Vol] 17 mmol/L High 5-15 [facility] Automated lymphocyte count a s percentage of total leukocytesOrdered By: Kira Hernández on 12-19-2024 Lymphocytes/100 WBC Auto (Unsp spec) 34.0 % - [facility] BUN/creatinine ratioOrdered By: Kira Hernández on 12-19-2024 Urea nitrogen/Creatinine [Mass ratio] 15.4 mg/mg 10-20 [facility] Basophil percentageOrdered B y: Kira Hernández on 12-19-2024 Basophils/100 WBC (Bld) 0.6 % 0-1 [facility] Bilirubin, totalOrdered By: Kira Hernández on 12-19-2024 Bilirubin [Mass/Vol] 0.27 mg/dL 0.00-1.30 [facility] CBC W/Diff, Automatedon 12-09 Absolute Lymph 2.19 X10 3/uL Normal 0.83-4.51 [facility] Comment on above: Performed By: #### L 100.0100, L500.4050, L501.9985, L502.0250, L500.4100 #### [facility] [address] [place], [address] Absolute Neut 3.5 X10 3/uL Normal 2.0-7.7 [facility] Comment on above: Performed By: #### L 100.0100, L500.4050, L501.9985, L502.0250, L500.4100 #### [facility] [address] [place], [address] Basophils/100 WBC (Bld) 0.6 % Normal 0-1 [facility] Comment on above: Performed By: #### L 100.0100, L500.4050, L501.9985, L502.0250, L500.4100 #### [facility] [address] [place], [address] Eosinophils/100 WBC (Bld) 1.4 % Normal 0-5 [facility] Comment on above: Performed By: #### L 100.0100, L500.4050, L501.9985, L502.0250, L500.4100 #### [facility] [address] [place], [address] Erythrocyte distribution width (RBC) [Ratio] 12.5 % Normal 11.6-14.6 [facility] Comment on above: Performed By: #### L 100.0100, L500.4050, L501.9985, L502.0250, L500.4100 #### [facility] [address] [place], [address] Hematocrit (Bld) [Volume fraction] 42.9 % Normal 40-54 [facility] Comment on above: Performed By: #### L 100.0100, L500.4050, L501.9985, L502.0250, L500.4100 #### [facility] [address] [place], [address] Hemoglobin (Bld) [Mass/Vol] 15.0 g/dL Normal 13.0-16.5 [facility] Comment on above: Performed By: #### L 100.0100, L500.4050, L501.9985, L502.0250, L500.4100 #### [facility] [address] [place] [place], [address] IG% 0.300 Normal 0.0-0.9 [facility] Comment on above: Result Comment: IG% - Immature Granulocytes (promyelocytes, myelocytes and metamyelocytes) > 1% indicates that a LEFT SHIFT is Present. Performed By: #### L 100.0100, L500.4050, L501.9985, L502.0250, L500.4100 #### [facility] [address] [place], [address] Lymphocytes/100 WBC (Bld) 34.0 % Normal 19-41 [facility] Comment on above: Performed By: #### L 100.0100, L500.4050, L501.9985, L502.0250, L500.4100 #### [facility] [address] [place], [address] MCH (RBC) [Entitic mass] 31.6 pg Normal 27.0-32.0 [facility] Comment on above: Performed By: #### L 100.0100, L500.4050, L501.9985, L502.0250, L500.4100 #### [facility] [address] [place], [address] MCHC (RBC) [Mass/Vol] 35.0 g/dL Normal 32-36 [facility] Comment on above: Performed By: #### L 100.0100, L500.4050, L501.9985, L502.0250, L500.4100 #### [facility] [address] [place], [address] MCV (RBC) [Entitic vol] 90.3 fL Normal 80-94 [facility] Comment on above: Performed By: #### L 100.0100, L500.4050, L501.9985, L502.0250, L500.4100 #### [facility] [address] [place], [address] Monocytes/100 WBC (Bld) 9.3 % Normal 0-10 [facility] Comment on above: Performed By: #### L 100.0100, L500.4050, L501.9985, L502.0250, L500.4100 #### [facility] [address] [place], [address] Neutrophils/100 WBC (Bld) 54.4 % Normal 47-70 [facility] Comment on above: Performed By: #### L 100.0100, L500.4050, L501.9985, L502.0250, L500.4100 #### [facility] [address] [place], [address] Nucleated RBC (Bld) [#/Vol] 0 10*3/uL Normal 0-5 [facility] Comment on above: Performed By: #### L 100.0100, L500.4050, L501.9985, L502.0250, L500.4100 #### [facility] [address] [place], [address] Platelet mean volume (Bld) [Entitic vol] 10.1 fL Normal 6.2-12.0 [facility] Comment on above: Performed By: #### L 100.0100, L500.4050, L501.9985, L502.0250, L500.4100 #### [facility] [address] [place], [address] Platelets (Bld) [#/Vol] 214 10*3/uL Normal 150-450 [facility] Comment on above: Performed By: #### L 100.0100, L500.4050, L501.9985, L502.0250, L500.4100 #### [facility] [address] [place], [address] RBC (Bld) [#/Vol] 4.75 10*6/uL Normal 4.6-6.2 [facility] Comment on above: Performed By: #### L 100.0100, L500.4050, L501.9985, L502.0250, L500.4100 #### [facility] [address] [place], [address] RDW SD 41.4 fl Normal 35.1-43.9 [facility] Comment on above: Performed By: #### L 100.0100, L500.4050, L501.9985, L502.0250, L500.4100 #### [facility] [address] [place], [address] WBC (Bld) [#/Vol] 6.5 10*3/uL Normal 4.4-11.0 [facility] Comment on above: Performed By: #### L 100.0100, L500.4050, L501.9985, L502.0250, L500.4100 #### [facility] [address] [place] [place], [address] Calculated very low density lipoprotein (VLDL) cholesterol measurementOrdered By: Kira Hernández on 12-19-2024 Calculated very low density lipoprotein (VLDL) cholesterol measurement 185 mg/dL High 5-40 [facility] Carbon dioxide, total [Moles /volume] in Central venous bloodOrdered By: Kira Hernández on 12-19-2024 CO2 [Moles/Vol] 20.6 mmol/L Low 21.0-32.0 [facility] Chloride assayOrdered By: Latoya caballero Sima on 12-19-2024 Chloride [Moles/Vol] 98 mmol/L 98-108 [facility] Comprehensive Metabolic Prof ilon 12-19-2024 Albumin [Mass/Vol] 4.6 g/dL Normal 3.5-5.0 [facility] Comment on above: Performed By: #### L 100.0100, L500.4050, L501.9985, L502.0250, L500.4100 #### [facility] [address] [place], [address] Albumin/Globulin [Mass ratio] 2.1 {ratio} Normal 0.9-2.4 [facility] Comment on above: Performed By: #### L 100.0100, L500.4050, L501.9985, L502.0250, L500.4100 #### [facility] [address] [place], [address] ALK PHOS 73 U/L Normal 40-129 [facility] Comment on above: Performed By: #### L 100.0100, L500.4050, L501.9985, L502.0250, L500.4100 #### [facility] [address] [place], [address] ALT [Catalytic activity/Vol] 46 U/L Normal <=46 [facility] Comment on above: Performed By: #### L 100.0100, L500.4050, L501.9985, L502.0250, L500.4100 #### [facility] Laboratory [address] [place], [address] AST [Catalytic activity/Vol] 28 U/L Normal <=37 [facility] Comment on above: Performed By: #### L 100.0100, L500.4050, L501.9985, L502.0250, L500.4100 #### [facility] [address] [place], [address] Bilirubin [Mass/Vol] 0.27 mg/dL Normal 0.00-1.30 [facility] Comment on above: Performed By: #### L 100.0100, L500.4050, L501.9985, L502.0250, L500.4100 #### [facility] [address] [place], [address] BUN/CRE 15.4 RATIO Normal 10-20 [facility] Comment on above: Performed By: #### L 100.0100, L500.4050, L501.9985, L502.0250, L500.4100 #### [facility] [address] [place], [address] Calcium [Mass/Vol] 9.6 mg/dL Normal 7.6-11.0 [facility] Comment on above: Performed By: #### L 100.0100, L500.4050, L501.9985, L502.0250, L500.4100 #### [facility] [address] [place], [address] Chloride [Moles/Vol] 98 mmol/L Normal 98-108 [facility] Comment on above: Performed By: #### L 100.0100, L500.4050, L501.9985, L502.0250, L500.4100 #### [facility] [address] [place], [address] CO2 [Moles/Vol] 20.6 mmol/L Low 21.0-32.0 [facility] Comment on above: Performed By: #### L 100.0100, L500.4050, L501.9985, L502.0250, L500.4100 #### [facility] [address] [place], [address] Creatinine [Mass/Vol] 1.06 mg/dL Normal 0.70-1.20 [facility] Comment on above: Performed By: #### L 100.0100, L500.4050, L501.9985, L502.0250, L500.4100 #### [facility] [address] [place], [address] GAP 17 High 5-15 [facility] Comment on above: Performed By: #### L 100.0100, L500.4050, L501.9985, L502.0250, L500.4100 #### [facility] [address] [place], [address] GFR/1.73 sq M.predicted among non-blacks MDRD (S/P/Bld) [Vol rate/Area] 87 mL/min/{1.73_m2} Normal >60 [facility] Comment on above: Result Comment: mL/m in/1.73m2 CKD-EPI Creatinine Equation (2020) Performed By: #### L 100.0100, L500.4050, L501.9985, L502.0250, L500.4100 #### [facility] [address] [place], [address] Globulin (S) [Mass/Vol] 2.2 g/dL Normal 2.2-4.2 [facility] Comment on above: Performed By: #### L 100.0100, L500.4050, L501.9985, L502.0250, L500.4100 #### [facility] [address] [place], [address] Glucose [Mass/Vol] 249 mg/dL High 70-99 [facility] Comment on above: Performed By: #### L 100.0100, L500.4050, L501.9985, L502.0250, L500.4100 #### [facility] [address] [place], [address] Potassium [Moles/Vol] 3.8 mmol/L Normal 3.3-5.1 [facility] Comment on above: Performed By: #### L 100.0100, L500.4050, L501.9985, L502.0250, L500.4100 #### [facility] [address] [place], [address] Sodium [Moles/Vol] 136 mmol/L Normal 133-145 [facility] Comment on above: Performed By: #### L 100.0100, L500.4050, L501.9985, L502.0250, L500.4100 #### [facility] [address] [place], [address] T PROT 6.7 g/dL Normal 5.9-8.4 [facility] Comment on above: Performed By: #### L 100.0100, L500.4050, L501.9985, L502.0250, L500.4100 #### [facility] [address] [place], [address] Urea nitrogen [Mass/Vol] 16 mg/dL Normal 4-19 [facility] Comment on above: Performed By: #### L 100.0100, L500.4050, L501.9985, L502.0250, L500.4100 #### [facility] [address] [place], [place], [address] Eosinophil percentageOrdered By: Kira Hernández on 12-19-2024 Eosinophils/100 WBC (Bld) 1.4 % 0-5 [facility] Erythrocyte distribution wid th ratioOrdered By: Kira Hernández on 12-19-2024 Erythrocyte distribution width (RBC) [Ratio] 12.5 % 11.6-14.6 [facility] Erythrocyte distribution wid th standard deviationOrdered By: Kira GeorgeSima on 12-19-2024 Erythrocyte distribution width (RBC) [Ratio] 41.4 fl 35.1-43.9 [facility] Glomerular filtration rate ( GFR) estimation/1.73 sq m using serum, plasma, or whole bOrdered By: Kira Hernández on 12-19-2024 GFR/1.73 sq M.predicted among non-blacks MDRD (S/P/Bld) [Vol rate/Area] 87 mL/min/{1.73_m2} >60 [facility] Comment on above: mL/min/1.73m2 CKD-EP I Creatinine Equation (2020) Hematocrit Auto (Bld) [Volum e fraction]Ordered By: Kira Sima on 12-19-2024 Hematocrit (Bld) [Volume fraction] 42.9 % 40-54 [facility] Hemoglobin A1con 12-19-2024 HbA1c (Bld) [Mass fraction] 8.2 % High <=5.6 [facility] Comment on above: Result Comment: Norm al < 5.7 % Prediabetic 5.7 - 6.4 % Diabetic >or= 6.5 % Please note range changes. Performed By: #### L 100.0100, L500.4050, L501.9985, L502.0250, L500.4100 #### [facility] [address] [place], [place], [address] Hemoglobin A1c percentageOrd ered By: Kira Hernández on 12-19-2024 HbA1c (Bld) [Mass fraction] 8.2 % High <5.7 [facility] Comment on above: Normal < 5.7 % Predi abetic 5.7 - 6.4 % Diabetic >or= 6.5 % Please note range changes. Hemoglobin measurementOrdere d By: Kira Hernández on 12-19-2024 Hemoglobin (Bld) [Mass/Vol] 15.0 g/dL 13.0-16.5 [facility] Immature granulocytes/100 WB C Auto (Bld)Ordered By: Kira Hernández on 12-19-2024 Immature granulocytes/100 WBC (Bld) 0.300 % 0.0-0.9 [facility] Comment on above: IG% - Immature Granu locytes (promyelocytes, myelocytes and metamyelocytes) > 1% indicates that a LEFT SHIFT is Present. LDL calc ser/plasOrdered By: Kira Hernández on 12-19-2024 Cholesterol in LDL [Mass/Vol] 0 mg/dL [facility] Comment on above: Mhnppekveq=168-207 m g/dL & Higher Obkv=842 mg/dL or greater Laboratory - Chemistry and C hemistry - challengeOrdered By: Kira Hernández on 12-19-2024 AST [Catalytic activity/Vol] 28 U/L <38 [facility] Lipid Profileon 12-19-2024 CHOL:HDL 6.07 Normal [facility] Comment on above: Performed By: #### L 100.0100, L500.4050, L501.9985, L502.0250, L500.4100 #### [facility] [address] [place], [address] Cholesterol [Mass/Vol] 222 mg/dL High <=200 [facility] Comment on above: Result Comment: Chol esterol level, Desirable <200 mg/dL Borderline high cholesterol 200-239 mg/dL High cholesterol >=240 mg/dL Recommendations of the NCEP Adult Treatment Panel for the following risk-cutoff thresholds for the [place] population. Performed By: #### L 100.0100, L500.4050, L501.9985, L502.0250, L500.4100 #### [facility] [address] [place], [address] Cholesterol in HDL [Mass/Vol] 37 mg/dL Low [facility] Comment on above: Result Comment: [place] Cholesterol Education Program (NCEP) guidelines: <40 mg/dL: Low HDL-cholesterol (major risk factor for CHD) >= 60 mg/dL: High HDL-cholesterol (negative risk factor for CHD) HDL-cholesterol is affected by a number of factors, e.g. smoking, exercise, hormones, sex and age. Performed By: #### L 100.0100, L500.4050, L501.9985, L502.0250, L500.4100 #### [facility] [address] [place], [address] Cholesterol in LDL [Mass/Vol] 0 mg/dL Normal [facility] Comment on above: Result Comment: Bord lrjmna=882-220 mg/dL Higher Zayv=170 mg/dL or greater Performed By: #### L 100.0100, L500.4050, L501.9985, L502.0250, L500.4100 #### [facility] [address] [place], [address] Cholesterol in VLDL [Mass/Vol] 185 mg/dL High 5-40 [facility] Comment on above: Performed By: #### L 100.0100, L500.4050, L501.9985, L502.0250, L500.4100 #### [facility] [address] [place], [address] Triglyceride [Mass/Vol] 926 mg/dL High [facility] Comment on above: Result Comment: The drugs N-Acetylcysteine and Metamizole may falsely depress this assay. Normal range: <150 mg/dL Borderline High: 150-199 mg/dL High: 200-499 mg/dL Very High: >500 mg/dL Performed By: #### L 100.0100, L500.4050, L501.9985, L502.0250, L500.4100 #### [facility] [address] [place], [address] MCV (mean corpuscular volume ) determinationOrdered By: iKra Hernández on 12-19-2024 MCV (RBC) [Entitic vol] 90.3 fL 80-94 [facility] Mean corpuscular hemoglobin (MCH) determinationOrdered By: Kira Hernández on 12-19-2024 MCH (RBC) [Entitic mass] 31.6 pg 27.0-32.0 [facility] Mean corpuscular hemoglobin concentration (MCHC) determinationOrdered By: Kira Hernández on 12-19-2024 MCHC (RBC) [Mass/Vol] 35.0 g/dL 32-36 [facility] Mean platelet volume determi nationOrdered By: Kira Hernández on 12-19-2024 Platelet mean volume (Bld) [Entitic vol] 10.1 fL 6.2-12.0 [facility] Microalb:Creat Ratio,Random URon 12-19-2024 MALB:CREAT Normal [facility] Comment on above: Result Comment: UTO Performed By: #### L 100.0100, L500.4050, L501.9985, L502.0250, L500.4100 #### [facility] [address] [place], [address] MICROALBUMIN,UR Normal NO RANGE EST. [facility] Comment on above: Result Comment: UTO Performed By: #### L 100.0100, L500.4050, L501.9985, L502.0250, L500.4100 #### [facility] [address] [place], [address] UR CREAT Normal 39.00-259.0 0 [facility] Comment on above: Result Comment: UTO Performed By: #### L 100.0100, L500.4050, L501.9985, L502.0250, L500.4100 #### [facility] [address] [place], [address] Monocyte percentageOrdered B y: Kira Hernández on 12-19-2024 Monocytes/100 WBC (Bld) 9.3 % 0-10 [facility] Neutrophil percentageOrdered By: Kira Hernández on 12-19-2024 Neutrophils/100 WBC (Bld) 54.4 % 47-70 [facility] Nucleated red blood cell per centageOrdered By: Kira Hernández on 12-19-2024 Nucleated RBC/100 WBC (Bld) [Ratio] 0 % 0-5 [facility] Platelet countOrdered By: Latoya Hernández on 12-19-2024 Platelets (Bld) [#/Vol] 214 10*3/uL 150-450 [facility] Potassium measurement (mass/ volume)Ordered By: Kira Hernández on 12-19-2024 Potassium (Unsp spec) [Mass/Vol] 3.8 mmol/L 3.3-5.1 [facility] RBC Auto (Bld) [#/Vol]Ordere d By: Kira Hernández on 12-19-2024 RBC (Bld) [#/Vol] 4.75 10*6/uL 4.6-6.2 [facility] Screening total cholesterol/ high density lipoprotein (HDL) cholesterol ratioOrdered By: Kira Hernández on 12-19-2024 Cholesterol.total/Chol esterol in HDL [Mass ratio] 6.07 {ratio} [facility] Serum creatinine measurement (mass/volume)Ordered By: Kira Hernández on 12-19-2024 Creatinine [Mass/Vol] 1.06 mg/dL 0.70-1.20 [facility] Serum globulin measurementOr dered By: Kira Hernández on 12-19-2024 Globulin (S) [Mass/Vol] 2.2 g/dL 2.2-4.2 [facility] Serum glucose measurement (m ass/volume)Ordered By: Kira Hernández on 12-19-2024 Glucose [Mass/Vol] 249 mg/dL High 70-99 [facility] Serum or plasma alanine ashton otransferase (ALT) measurementOrdered By: Kira Hernández on 12-19-2024 ALT [Catalytic activity/Vol] 46 U/L <47 [facility] Serum or plasma albumin teresita urement (mass/volume)Ordered By: Kira Hernández on 12-19-2024 Albumin [Mass/Vol] 4.6 g/dL 3.5-5.0 [facility] Serum or plasma albumin/glob ulin mass ratioOrdered By: Kira Hernández on 12-19-2024 Albumin/Globulin [Mass ratio] 2.1 {ratio} 0.9-2.4 [facility] Serum or plasma alkaline pritesh sphatase measurementOrdered By: Kira Hernández on 12-19-2024 ALP [Catalytic activity/Vol] 73 U/L 40-129 [facility] Serum or plasma calcium teresita urement (mass/volume)Ordered By: Kira Hernández on 12-19-2024 Calcium [Mass/Vol] 9.6 mg/dL 7.6-11.0 [facility] Serum or plasma cholesterol in HDL measurement (mass/volume)Ordered By: Kira Hernández on 12-19-2024 Cholesterol in HDL [Mass/Vol] 37 mg/dL Low >40 [facility] Comment on above: National Cholesterol Education Program (NCEP) guidelines:<40 mg/dL: Low HDL-cholesterol (major risk factor for CHD)>= 60 mg/dL: High HDL-cholesterol (negative risk factor for CHD)HDL-cholesterol is affected by a number of factors, e.g. smoking, exercise, hormones, sex and age. Serum or plasma cholesterol measurement (mass/volume)Ordered By: Kira Hernández on 12-19-2024 Cholesterol [Mass/Vol] 222 mg/dL High <201 [facility] Comment on above: Cholesterol level, D esirable <200 mg/dLBorderline high cholesterol 200-239 mg/dLHigh cholesterol >=240 mg/dLRecommendations of the NCEP Adult Treatment Panel for the following risk-cutoff thresholds for the [place] population. Serum or plasma urea nitroge n measurement (mass/volume)Ordered By: Kira Hernández on 12-19-2024 Urea nitrogen [Mass/Vol] 16 mg/dL 4-19 [facility] Sodium levelOrdered By: Kira Hernández on 12-19-2024 Sodium [Moles/Vol] 136 mmol/L 133-145 [facility] Total proteinOrdered By: Lisa Hernández on 12-19-2024 Protein [Mass/Vol] 6.7 g/dL 5.9-8.4 [facility] Triglycerides measurementOrd ered By: Kira Hernández on 12-19-2024 Triglyceride [Mass/Vol] 926 mg/dL High <199 [facility] Comment on above: The drugs N-Acetylcy steine and Metamizole may falsely depress this assay. Normal range: <150 mg/dLBorderline High: 150-199 mg/dLHigh: 200-499 mg/dLVery High: >500 mg/dL White blood cell (WBC) count Ordered By: Kira Hernández on 12-19-2024 WBC (Bld) [#/Vol] 6.5 10*3/uL 4.4-11.0 [facility] CNTHERAPYon 08-31-2023 CNTHERAPY OT/PT/Speech Visit ( PTWS) CHASIDY MAE ([id number]) 1975 M Date Time Provider Department 08/31/23 3:00 PM KALINA HULL Date Time Provider Department Center 08/31/2023 3:00 PM [id number] HULL PTEMMIE [facility] Reason for Visit: PT Discharge [752] Primary Visit Diagnosis: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 [M23.203] Allergies As of Date: 08/31/2023 (No Known Allergies) Date Reviewed: 09/20/2022 Reviewed by: Laura Li MA - Fully Assessed Prescriptions as of 08/31/2023 - labetalol (TRANDATE) 100 mg tablet Take 100 mg by mouth twice daily. - metFORMIN ER (GLUCOPHAGE XR) 500 mg 24 hr tablet Take 500 mg by mouth once daily. - triamcinolone acetonide (NASACORT AQ) 55 mcg nasal inhaler Use 2 Sprays in the nose once daily. - fexofenadine HCl (SHEY ALLERGY ORAL) Take by mouth. - fluticasone (FLONASE) 50 mcg/actuation nasal spray Use 1 [place] in each nostril daily at bedtime. Normal [facility] CNTHERAPYon 08-29-2023 CNTHERAPY OT/PT/Speech Visit ( PTWS) CHASIDY MAE ([id number]) 1975 M Date Time Provider Department 08/29/23 2:45 PM KALINA HULL Date Time Provider Department Center 08/29/2023 2:45 PM [id number] HULL Reason for Visit: Physical Therapy [503] Primary Visit Diagnosis: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 [M23.203] Allergies As of Date: 08/29/2023 (No Known Allergies) Date Reviewed: 09/20/2022 Reviewed by: Laura Li MA - Fully Assessed Prescriptions as of 08/29/2023 - labetalol (TRANDATE) 100 mg tablet Take 100 mg by mouth twice daily. - metFORMIN ER (GLUCOPHAGE XR) 500 mg 24 hr tablet Take 500 mg by mouth once daily. - triamcinolone acetonide (NASACORT AQ) 55 mcg nasal inhaler Use 2 Sprays in the nose once daily. - fexofenadine HCl (SHEY ALLERGY ORAL) Take by mouth. - fluticasone (FLONASE) 50 mcg/actuation nasal spray Use 1 [place] in each nostril daily at bedtime. Chief Specialist Leed: Addendum Therapy (PT/OT/Speech/Resp) ID: [id number] 08/29/2023 3:07 PM Author: KALINA HULL Signed by KALINA HULL PT on 08/29/2023 at 3:07 PM * * * This document replaces document [id number] * * * Document text: Program_ID:[id number] Access Code: [email or web address] URL: [email or web address] Date: 08-29-2023 Prepared By: Kalina Hull Program Notes Exercises - Lateral Step Down - 2 x daily - 7 x weekly - 4 sets - 8 reps - Standing Terminal Knee Extension with Resistance - 2 x daily - 7 x weekly - 3 sets - 20 reps - Standing Heel Raise - 2 x daily - 7 x weekly - 2 sets - 15 reps - Standing Single Leg Stance with Counter Support - 2 x daily - 7 x weekly - 3-5 sets - 1 reps Normal [facility] THERAPY NTon 08-29-2023 THERAPY NT HNO ID: [id number] Author: KALINA HULL PT Service: ? Author Type: Physical Therapist Type: Therapy (PT/OT/Speech/Resp) Filed: 08/29/2023 15:06 Note Text: Program_ID:[id number] Access Code: [email or web address] URL: [email or web address] Date: 08-29-2023 Prepared By: Kalina Hull Program Notes Exercises - Lateral Step Down - 2 x daily - 7 x weekly - 4 sets - 8 reps - Standing Terminal Knee Extension with Resistance - 2 x daily - 7 x weekly - 3 sets - 20 reps - Standing Heel Raise - 2 x daily - 7 x weekly - 2 sets - 15 reps Normal [facility] CNTHERAPYon 08-25-2023 CNTHERAPY OT/PT/Speech Visit ( PTWS) CHASIDY MAE ([id number]) 1975 M Date Time Provider Department 08/25/23 3:00 PM SRAVANI GUERRA Date Time Provider Department Center 08/25/2023 3:00 PM [id number] GUERRA Reason for Visit: Physical Therapy [503] Primary Visit Diagnosis: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 [M23.203] Allergies As of Date: 08/25/2023 (No Known Allergies) Date Reviewed: 09/20/2022 Reviewed by: Laura Li MA - Fully Assessed Prescriptions as of 08/25/2023 - labetalol (TRANDATE) 100 mg tablet Take 100 mg by mouth twice daily. - metFORMIN ER (GLUCOPHAGE XR) 500 mg 24 hr tablet Take 500 mg by mouth once daily. - triamcinolone acetonide (NASACORT AQ) 55 mcg nasal inhaler Use 2 Sprays in the nose once daily. - fexofenadine HCl (SHEY ALLERGY ORAL) Take by mouth. - fluticasone (FLONASE) 50 mcg/actuation nasal spray Use 1 [place] in each nostril daily at bedtime. Normal [facility] CNTHERAPYon 08-22-2023 CNTHERAPY OT/PT/Speech Visit ( PTWS) CHASIDY MAE ([id number]) 1975 M Date Time Provider Department 08/22/23 2:45 PM KALINA HULL Date Time Provider Department Center 08/22/2023 2:45 PM [id number] HULL Reason for Visit: Physical Therapy [503] Primary Visit Diagnosis: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 [M23.203] Allergies As of Date: 08/22/2023 (No Known Allergies) Date Reviewed: 09/20/2022 Reviewed by: Laura Li MA - Fully Assessed Prescriptions as of 08/22/2023 - labetalol (TRANDATE) 100 mg tablet Take 100 mg by mouth twice daily. - metFORMIN ER (GLUCOPHAGE XR) 500 mg 24 hr tablet Take 500 mg by mouth once daily. - triamcinolone acetonide (NASACORT AQ) 55 mcg nasal inhaler Use 2 Sprays in the nose once daily. - fexofenadine HCl (SHEY ALLERGY ORAL) Take by mouth. - fluticasone (FLONASE) 50 mcg/actuation nasal spray Use 1 [place] in each nostril daily at bedtime. Normal [facility] CNTHERAPYon 08-18-2023 CNTHERAPY OT/PT/Speech Visit ( PTWS) CHASIDY MAE ([id number]) 1975 M Date Time Provider Department 08/18/23 3:00 PM SRAVANI GUERRA Date Time Provider Department [place] 08/18/2023 3:00 PM [id number] GUERRA Reason for Visit: Physical Therapy [503] Primary Visit Diagnosis: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 [M23.203] Allergies As of Date: 08/18/2023 (No Known Allergies) Date Reviewed: 09/20/2022 Reviewed by: Laura Li MA - Fully Assessed Prescriptions as of 08/18/2023 - labetalol (TRANDATE) 100 mg tablet Take 100 mg by mouth twice daily. - metFORMIN ER (GLUCOPHAGE XR) 500 mg 24 hr tablet Take 500 mg by mouth once daily. - triamcinolone acetonide (NASACORT AQ) 55 mcg nasal inhaler Use 2 Sprays in the nose once daily. - fexofenadine HCl (SHEY ALLERGY ORAL) Take by mouth. - fluticasone (FLONASE) 50 mcg/actuation nasal spray Use 1 [place] in each nostril daily at bedtime. Normal [facility] CNTHERAPYon 08-15-2023 CNTHERAPY OT/PT/Speech Visit ( PTWS) CATRACHITOCHASIDY SAWYER ([id number]) 1975 M Date Time Provider Department 08/15/23 2:45 PM KALINA HULL PTWS Date Time Provider Department [place] 08/15/2023 2:45 PM [id number] HULL PTEMMIE Mullen Reason for Visit: Physical Therapy [503] Primary Visit Diagnosis: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 [M23.203] Allergies As of Date: 08/15/2023 (No Known Allergies) Date Reviewed: 09/20/2022 Reviewed by: Laura Li MA - Fully Assessed Prescriptions as of 08/15/2023 - labetalol (TRANDATE) 100 mg tablet Take 100 mg by mouth twice daily. - metFORMIN ER (GLUCOPHAGE XR) 500 mg 24 hr tablet Take 500 mg by mouth once daily. - triamcinolone acetonide (NASACORT AQ) 55 mcg nasal inhaler Use 2 Sprays in the nose once daily. - fexofenadine HCl (SHEY ALLERGY ORAL) Take by mouth. - fluticasone (FLONASE) 50 mcg/actuation nasal spray Use 1 [place] in each nostril daily at bedtime. Chief Specialist Leed: Addendum Therapy (PT/OT/Speech/Resp) ID: [id number] 08/15/2023 3:01 PM Author: KALINA HULL Signed by KALINA HULL PT on 08/15/2023 at 3:01 PM * * * This document replaces document [id number] * * * Document text: Program_ID:[id number] Access Code: [email or web address] URL: [email or web address] Date: 08-15-2023 Prepared By: Kalina Hull Program Notes Exercises - Lateral Step Down - 2 x daily - 7 x weekly - 4 sets - 8 reps - Standing Terminal Knee Extension with Resistance - 2 x daily - 7 x weekly - 3 sets - 20 reps - Prone Knee Flexion - 2 x daily - 7 x weekly - 3 sets - 20 reps Normal [facility] THERAPY NTon 08-15-2023 THERAPY NT HNO ID: [id number] Author: KALINA HULL, PT Service: ? Author Type: Physical Therapist Type: Therapy (PT/OT/Speech/Resp) Filed: 08/15/2023 15:00 Note Text: Program_ID:[id number] Access Code: [email or web address] URL: [email or web address] Date: 08-15-2023 Prepared By: Kalina Hull Program Notes Exercises - Lateral Step Down - 2 x daily - 7 x weekly - 4 sets - 8 reps - Standing Terminal Knee Extension with Resistance - 2 x daily - 7 x weekly - 3 sets - 20 reps Normal [facility] CNTHERAPYon 08-12-2023 CNTHERAPY OT/PT/Speech Visit ( PTWS) CHASIDY MAE ([id number]) 1975 M Date Time Provider Department 08/12/23 2:45 PM JALEESA DICKERSON PTWS Date Time Provider Department Center 08/12/2023 2:45 PM [id number] DICKERSON Reason for Visit: Physical Therapy [503] Primary Visit Diagnosis: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 [M23.203] Allergies As of Date: 08/12/2023 (No Known Allergies) Date Reviewed: 09/20/2022 Reviewed by: Laura Li MA - Fully Assessed Prescriptions as of 08/12/2023 - labetalol (TRANDATE) 100 mg tablet Take 100 mg by mouth twice daily. - metFORMIN ER (GLUCOPHAGE XR) 500 mg 24 hr tablet Take 500 mg by mouth once daily. - triamcinolone acetonide (NASACORT AQ) 55 mcg nasal inhaler Use 2 Sprays in the nose once daily. - fexofenadine HCl (SHEY ALLERGY ORAL) Take by mouth. - fluticasone (FLONASE) 50 mcg/actuation nasal spray Use 1 [place] in each nostril daily at bedtime. Normal [facility] CNTHERAPYon 08-08-2023 CNTHERAPY OT/PT/Speech Visit ( PTWS) CHASIDY MAE ([id number]) 1975 M Date Time Provider Department 08/08/23 12:30 PM JALEESA DICKERSON PTWS Date Time Provider Department Center 08/08/2023 12:30 PM [id number], MARIAH PTEMMIE Mullen Reason for Visit: Physical Therapy [503] Primary Visit Diagnosis: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 [M23.203] Allergies As of Date: 08/08/2023 (No Known Allergies) Date Reviewed: 09/20/2022 Reviewed by: Laura Li MA - Fully Assessed Prescriptions as of 08/08/2023 - labetalol (TRANDATE) 100 mg tablet Take 100 mg by mouth twice daily. - metFORMIN ER (GLUCOPHAGE XR) 500 mg 24 hr tablet Take 500 mg by mouth once daily. - triamcinolone acetonide (NASACORT AQ) 55 mcg nasal inhaler Use 2 Sprays in the nose once daily. - fexofenadine HCl (SHEY ALLERGY ORAL) Take by mouth. - fluticasone (FLONASE) 50 mcg/actuation nasal spray Use 1 [place] in each nostril daily at bedtime. Normal [facility] CNTHERAPYon 08-01-2023 CNTHERAPY OT/PT/Speech Visit ( PTWS) CHASIDY MAE ([id number]) 1975 M Date Time Provider Department 08/01/23 2:00 PM KALINA HULL Date Time Provider Department Center 08/01/2023 2:00 PM [id number] HULL Reason for Visit: PT Eval [747] Primary Visit Diagnosis: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 [M23.203] Allergies As of Date: 08/01/2023 (No Known Allergies) Date Reviewed: 09/20/2022 Reviewed by: Laura Li MA - Fully Assessed Prescriptions as of 08/01/2023 - labetalol (TRANDATE) 100 mg tablet Take 100 mg by mouth twice daily. - metFORMIN ER (GLUCOPHAGE XR) 500 mg 24 hr tablet Take 500 mg by mouth once daily. - triamcinolone acetonide (NASACORT AQ) 55 mcg nasal inhaler Use 2 Sprays in the nose once daily. - fexofenadine HCl (SHEY ALLERGY ORAL) Take by mouth. - fluticasone (FLONASE) 50 mcg/actuation nasal spray Use 1 [place] in each nostril daily at bedtime. Chief Specialist Leed: Addendum Therapy (PT/OT/Speech/Resp) ID: [id number] 08/01/2023 2:16 PM Author: KALINA HULL Signed by KALINA HULL PT on 08/01/2023 at 2:16 PM * * * This document replaces document [id number] * * * Document text: Program_ID:[id number] Access Code: [email or web address] URL: [email or web address] Date: 08-01-2023 Prepared By: Kalina Hull Program Notes Exercises - Supine Heel Slide - 3 x daily - 7 x weekly - 3 sets - 10 reps - Supine Knee Extension Strengthening - 3 x daily - 7 x weekly - 4 sets - 8 reps - Active Straight Leg Raise with Quad Set - 3 x daily - 7 x weekly - 2 sets - 8 reps Letter Text Normal [facility] THERAPY NTon 08-01-2023 THERAPY NT HNO ID: [id number] Author: KALINA HULL PT Service: ? Author Type: Physical Therapist Type: Therapy (PT/OT/Speech/Resp) Filed: 08/01/2023 14:11 Note Text: Program_ID:[id number] Access Code: [email or web address] URL: [email or web address] Date: 08-01-2023 Prepared By: Kalina Hull Program Notes Exercises - Supine Heel Slide - 1 x daily - 7 x weekly - 3 sets - 10 reps - Supine Knee Extension Strengthening - 1 x daily - 7 x weekly - 3 sets - 10 reps - Active Straight Leg Raise with Quad Set - 1 x daily - 7 x weekly - 3 sets - 10 reps Normal [facility] CNTHERAPYon 05-30-2023 CNTHERAPY OT/PT/Speech Visit ( PTWS) CHASIDY MAE ([id number]) 1975 M Date Time Provider Department 05/30/23 4:15 PM KALINA HULL PTEMMIE Date Time Provider Department Center 05/30/2023 4:15 PM [id number] HULL PTEMMIE Mullen Reason for Visit: PT Discharge [752] Primary Visit Diagnosis:Knee internal derangement, right [M23.91] Allergies As of Date: 05/30/2023 (No Known Allergies) Date Reviewed: 09/20/2022 Reviewed by: Laura Li MA - Fully Assessed Prescriptions as of 07/15/2023 - labetalol (TRANDATE) 100 mg tablet Take 100 mg by mouth twice daily. - metFORMIN ER (GLUCOPHAGE XR) 500 mg 24 hr tablet Take 500 mg by mouth once daily. - triamcinolone acetonide (NASACORT AQ) 55 mcg nasal inhaler Use 2 Sprays in the nose once daily. - fexofenadine HCl (SHEY ALLERGY ORAL) Take by mouth. - fluticasone (FLONASE) 50 mcg/actuation nasal spray Use 1 [place] in each nostril daily at bedtime. Letter Text [facility] CNTHERAPYon 05-23-2023 CNTHERAPY OT/PT/Speech Visit ( PTWS) CHASIDY MAE ([id number]) 1975 M Date Time Provider Department 05/23/23 4:15 PM KALINA HULL PTEMMIE Date Time Provider Department Center 05/23/2023 4:15 PM [id number] HULL Reason for Visit: Physical Therapy [503] Primary Visit Diagnosis:Knee internal derangement, right [M23.91] Allergies As of Date: 05/23/2023 (No Known Allergies) Date Reviewed: 09/20/2022 Reviewed by: Laura Li MA - Fully Assessed Prescriptions as of 05/23/2023 - labetalol (TRANDATE) 100 mg tablet Take 100 mg by mouth twice daily. - metFORMIN ER (GLUCOPHAGE XR) 500 mg 24 hr tablet Take 500 mg by mouth once daily. - triamcinolone acetonide (NASACORT AQ) 55 mcg nasal inhaler Use 2 Sprays in the nose once daily. - fexofenadine HCl (SHEY ALLERGY ORAL) Take by mouth. - fluticasone (FLONASE) 50 mcg/actuation nasal spray Use 1 [place] in each nostril daily at bedtime. Normal [facility] CNTHERAPYon 05-10-2023 CNTHERAPY OT/PT/Speech Visit ( PTWS) CHASIDY MAE ([id number]) 1975 M Date Time Provider Department 05/10/23 4:30 PM KALINA HULL Date Time Provider Department Center 05/10/2023 4:30 PM [id number] HULL Reason for Visit: Physical Therapy [503] Primary Visit Diagnosis:Knee internal derangement, right [M23.91] Allergies As of Date: 05/10/2023 (No Known Allergies) Date Reviewed: 09/20/2022 Reviewed by: Laura Li MA - Fully Assessed Prescriptions as of 05/10/2023 - labetalol (TRANDATE) 100 mg tablet Take 100 mg by mouth twice daily. - metFORMIN ER (GLUCOPHAGE XR) 500 mg 24 hr tablet Take 500 mg by mouth once daily. - triamcinolone acetonide (NASACORT AQ) 55 mcg nasal inhaler Use 2 Sprays in the nose once daily. - fexofenadine HCl (SHEY ALLERGY ORAL) Take by mouth. - fluticasone (FLONASE) 50 mcg/actuation nasal spray Use 1 [place] in each nostril daily at bedtime. Normal [facility] CNTHERAPYon 04-27-2023 CNTHERAPY OT/PT/Speech Visit ( PTWS) CHASIDY MAE ([id number]) 1975 M Date Time Provider Department 04/27/23 3:45 PM KALINA HULL Date Time Provider Department [place] 04/27/2023 3:45 PM [id number] HULL Juan Sebas Reason for Visit: PT Eval [747] Primary Visit Diagnosis:Knee internal derangement, right [M23.91] Allergies As of Date: 04/27/2023 (No Known Allergies) Date Reviewed: 09/20/2022 Reviewed by: Laura Li MA - Fully Assessed Prescriptions as of 05/02/2023 - labetalol (TRANDATE) 100 mg tablet Take 100 mg by mouth twice daily. - metFORMIN ER (GLUCOPHAGE XR) 500 mg 24 hr tablet Take 500 mg by mouth once daily. - triamcinolone acetonide (NASACORT AQ) 55 mcg nasal inhaler Use 2 Sprays in the nose once daily. - fexofenadine HCl (SHEY ALLERGY ORAL) Take by mouth. - fluticasone (FLONASE) 50 mcg/actuation nasal spray Use 1 [place] in each nostril daily at bedtime. Letter Text Normal [facility] Kim Basophil percentageOrdered B y: Dr. Hernández on 12-17-2022 Testosterone [Mass/Vol] 356.54 ng/dL [facility] Comment on above: CENTRAL 90% REFERENC E RANGES MALE AGE <50 197.44 - 669.58 ng/dL MALE AGE > or = 50 187.72 - 684.19 ng/dL FEMALE AGE <50 8.38 - 35.01 ng/dL FEMALE AGE > or = 50 <7.00 - 35.92 ng/dL Effective as of 02/03/21 Basophil percentageOrdered B y: Dr. Hernández on 11-09-2022 Bilirubin [Mass/Vol] 0.50 mg/dL 0.20-1.00 [facility] Comment on above: For patients on eltr ombopag therapy, use of Dimension [place] TBIL is not recommended. Chloride [Moles/Vol] 105 mmol/L 98-107 [facility] Cholesterol [Mass/Vol] 199 mg/dL <200 [facility] Comment on above: <200 mg/dL Desirable 200-240 mg/dL Borderline >240 mg/dL High Risk Glucose [Mass/Vol] 119 mg/dL 74-106 [facility] Comment on above: Fasting Glucose resu lt from 100 to 125 mg/dL suggests IMPAIRED HOMEOSTASIS per A.D.A. criteria. Potassium [Moles/Vol] 3.7 mmol/L 3.5-5.1 [facility] Protein [Mass/Vol] 7.6 g/dL 6.4-8.2 [facility] Sodium [Moles/Vol] 139 mmol/L 136-145 [facility] Testosterone [Mass/Vol] 359 ng/dL 264-916 [facility] Comment on above: Adult male reference interval is based on a population ofhealthy nonobese males (BMI <30) between 19 and 39 yearsold. moisés Vanegas.al. JCEM 2017,102;[id number]. PMID:[id number]. Triglyceride [Mass/Vol] 368 mg/dL <199 [facility] Comment on above: The drugs N-Acetylcy steine and Metamizole may falsely depress this assay.Serum Triglycerides Reference Interval Normal <150 mg/dL Borderline high 150 - 199 mg/dL High 200 - 499 mg/dL Very High > or = 500 mg/dL Free testosterone percentage Ordered By: Dr. Hernández on 11-09-2022 Testosterone Free/Testosterone.tota l [Mass fraction] 1.40 % 1.50-4.20 [facility] Comment on above: Performed at: [address] [id number] Director: Reginald Szymanski PhD, Phone: [phone] at: [facility] Lab[address] [id number] Director: Dilma Gaxiola MD, Phone: [phone] Laboratory - Chemistry and C hemistry - challengeOrdered By: Dr. Hernández on 11-09-2022 ALP [Catalytic activity/Vol] 61 U/L 45-117 [facility] ALT [Catalytic activity/Vol] 132 U/L 16-61 [facility] CO2 [Moles/Vol] 26.0 mmol/L 21.0-32.0 [facility] Globulin (S) [Mass/Vol] 3.3 g/dL 2.2-4.2 [facility] Urea nitrogen/Creatinine [Mass ratio] 9.4 mg/mg 10-20 [facility] No Panel InformationOrdered By: Dr. Hernández on 11-09-2022 Estimated GFR (MDRD) Amer 86 mL/min >60 [facility] Comment on above: GFR Calc Estimated GFR (MDRD) Non-Af Amer 71 mL/min >60 [facility] Comment on above: Non- GFR Calc Thyroid Stimulating Hormone (TSH) 1.32 uIU/mL 0.358-3.74 [facility] Serum or plasma albumin teresita urement (mass/volume)Ordered By: Dr. Hernández on 11-09-2022 Albumin [Mass/Vol] 4.3 g/dL 3.2-5.0 [facility] Serum or plasma albumin/glob ulin mass ratioOrdered By: Dr. Hernández on 11-09-2022 Albumin/Globulin [Mass ratio] 1.3 {ratio} 0.9-2.4 [facility] Serum or plasma calcium teresita urement (mass/volume)Ordered By: Dr. Hernández on 11-09-2022 Calcium [Mass/Vol] 9.4 mg/dL 8.5-10.1 [facility] Serum or plasma cholesterol in HDL measurement (mass/volume)Ordered By: Dr. Hernández on 11-09-2022 Cholesterol in HDL [Mass/Vol] 53 mg/dL >40 [facility] Comment on above: The drugs N-Acetylcy steine and Metamizole may falsely depress this assay. Reference Range HDL <40 mg/dL Low HDL Cholesterol HDL >or= 60 mg/dL High HDL Cholesterol Serum or plasma cholesterol in VLDL measurement (mass/volume)Ordered By: Dr. Hernández on 11-09-2022 Cholesterol in VLDL [Mass/Vol] 74 mg/dL 5-40 [facility] Serum or plasma creatinine m easurement (mass/volume)Ordered By: Dr. Hernández on 11-09-2022 Creatinine [Mass/Vol] 1.17 mg/dL 0.70-1.30 [facility] Comment on above: The validity of the calculated GFR & GFRAA in patients over 70 years has not been determined. Clinical correlation is essential. Serum or plasma low density lipoprotein (LDL) cholesterol measurement (mass/volume)Ordered By: Dr. Hernández on 11-09-2022 Cholesterol in LDL [Mass/Vol] 72 mg/dL 0-130 [facility] Serum or plasma testosterone free measurement (mass/volume)Ordered By: Dr. Hernández on 11-09-2022 Testosterone Free [Mass/Vol] 5.03 ng/dL 5.00-21.00 [facility] Serum or plasma urea nitroge n measurement (mass/volume)Ordered By: Dr. Hernández on 11-09-2022 Urea nitrogen [Mass/Vol] 11 mg/dL 7-18 [facility] Thin prep Papanicolaou smear with manual screeningOrdered By: Dr. Hernández on 11-09-2022 Thin prep Papanicolaou smear with manual screening 57 U/L 15-37 [facility] Thin prep Papanicolaou smear with manual screening 8 5-15 [facility] Whole blood hemoglobin A1c/t otal hemoglobin ratio (mass fraction)Ordered By: Dr. Hernández on 11-09-2022 HbA1c (Bld) [Mass fraction] 6.6 % 3.8-5.6 [facility] Comment on above: Normal < 5.7 % Predi abetic 5.7 - 6.4 % Diabetic >or= 6.5 % Please note range changes. CNOVon 09-20-2022 CNOV Office Visit (UCWSTR ) CHASIDY MAE ([id number]) 1975 M Date Time Provider Department 09/20/22 8:[address] [facility] During your visit today, we recorded the following information about you: Temperature Pulse Respiration Blood pressure 97.1 degrees 72/minute 20/minute 124/82 Weight 104.9 kg Darren Gordon MD 09/20/2022 9:28 AM Signed Patient presents with: Head Congestion: Cough, bilateral ear pain x9 days, drainage HPI: Feeling sick for 9 days. Treated for sinusitis 4 weeks ago and improved. Positive symptoms: Cough from drainage and dry throat in the AM, Earache (L>R), Nasal Congestion, Rhinorrhea, Post nasal drainage, Sinus pressure, louder tinnitus, sweats (months) Negative symptoms: Shortness of breath, Fever, Body Aches, Headache, Chest tightness, OTC: Mucinex, Sudafed. Not taking shey or flonase. PAST MEDICAL HISTORY Diagnosis Date Back pain Diabetes mellitus (HCC) Hypertension MEDICATIONS: Current Outpatient Medications Medication Sig labetalol (TRANDATE) 100 mg tablet Take 100 mg by mouth twice daily. metFORMIN ER (GLUCOPHAGE XR) 500 mg 24 hr tablet Take 500 mg by mouth once daily. triamcinolone acetonide (NASACORT AQ) 55 mcg nasal inhaler Use 2 Sprays in the nose once daily. fexofenadine HCl (SHEY ALLERGY ORAL) Take by mouth. fluticasone (FLONASE) 50 mcg/actuation nasal spray Use 1 [place] in each nostril daily at bedtime. No current facility-administered medications for this visit. ALLERGIES: ALLERGIES No Known Allergies VITALS: BP 124/82 Pulse 72 Temp 36.2 ?C (97.1 ?F) Resp 20 Wt 104.9 kg (231 lb 3.2 oz) SpO2 98% PHYSICAL EXAM: GEN: mildly ill appearing HEENT: PERRL, EOMI, conjunctiva clear Ears: canals clear. TMs without erythema, bulge, or effusion. There are 2 tiny central spots of red on the left TM Sinuses: non-tender frontal sinus, non-tender maxillary sinuses Throat: moist mucous membranes, mild erythema, no exudate Neck: supple, no thyromegaly, no lymphadenopathy HEART: regular rate and rhythm, no murmurs LUNGS: clear to auscultation, no wheezes or crackles, no increased WOB ASSESSMENT/PLAN: 1. Acute non-recurrent sinusitis, unspecified location - ICD9: 461.9, ICD10: J01.90 (primary diagnosis) - suspect new viral URI, differential includes COVID-19 and recurrent secondary bacterial sinusitis. He is at the 10 day contagious stage for COVID. - Discussed supportive care treatment with home isolation, rest, cold medicine, and analgesia. - Red flags to seek further treatment include chest pain, shortness of breath, and lethargy; in the ER if severe. - AMOXICILLIN 875 MG-POTASSIUM CLAVULANATE 125 MG TABLET 2. Otalgia of left ear - ICD9: 388.70, ICD10: H92.02 Bilateral eustachian tube dysfunction and physical or barotrauma injury of the left TM. Follow up with ENT if tinnitus does not improve. Darren Gordon MD Allergies As of Date: 09/20/2022 (No Known Allergies) Date Reviewed: 09/20/2022 Reviewed by: Laura Li MA - Fully Assessed Reason for Visit: Head Congestion [234] Cmt: Cough, bilateral ear pain x9 days, drainage Primary Visit Diagnosis:Acute non-recurrent sinusitis, unspecified location [J01.90] Other Visit Diagnosis:Otalgia of left ear [H92.02] Order(s):amoxicillin-clavul anic acid (AUGMENTIN) 875-125 mg per tabletTake 1 tablet by mouth twice daily for 7 days.Disp: 14 tabletRfl: 0 Prescriptions as of 09/20/2022 - amoxicillin-clavulanic acid (AUGMENTIN) 875-125 mg per tablet Take 1 tablet by mouth twice daily for 7 days. - labetalol (TRANDATE) 100 mg tablet Take 100 mg by mouth twice daily. - metFORMIN ER (GLUCOPHAGE XR) 500 mg 24 hr tablet Take 500 mg by mouth once daily. - triamcinolone acetonide (NASACORT AQ) 55 mcg nasal inhaler Use 2 Sprays in the nose once daily. - fexofenadine HCl (SHEY ALLERGY ORAL) Take by mouth. - fluticasone (FLONASE) 50 mcg/actuation nasal spray Use 1 [place] in each nostril daily at bedtime. Problem List As Of Date 09/20/2022 Noted Resolved HNP (herniated nucleus pulposus), lumbar [M51.2*11/14/2013 Low back pain [M54.50] 11/15/2013 Prescriptions ordered this encounter Disp Refills Start End AMOXICILLIN 875 MG-POTASSIUM CLAVULA* 14 t* 0 09/20/2022 09/27/2022 Route: ORAL Sig: Take 1 tablet by mouth twice daily for 7 days. Medications Discontinued During This Encounter Prescriptions - predniSONE (DELTASONE) 10 mg tablet (Discontinued) Reported on 09/20/2022 - benzonatate (TESSALON PERLES) 100 mg capsule (Discontinued) Reported on 09/20/2022 - cyclobenzaprine (FLEXERIL) 10 mg tablet (Discontinued) No sig reported Encounter Status:Closed by DARREN GORDON on 09/20/22 [facility] No Panel InformationOrdered By: Dr. Hernández on 09-09-2022 Miscellaneous Test See comment [facility] Comment on above: TEST RESULT LIMITSIn sulin Antibodies <5.0 uU/mLThis test is also known as insulin autoantibody or IAA.This test was developed and its performance characteristicsdetermined by [facility]. It has not been cleared or approvedby the Food and Drug Administration.Reference Range:<5.0 Negative> or = 5.0 Positive __ TESTING PERFORMED AT [facility]. ORIGINAL REPORT ON FILE IN LAB CONTAINS ADDITIONAL TEST SITE INFORMATION. Whole blood hemoglobin A1c/t otal hemoglobin ratio (mass fraction)Ordered By: Dr. Hernández on 09-09-2022 HbA1c (Bld) [Mass fraction] 7.6 % 3.8-5.6 [facility] Comment on above: Normal < 5.7 % Predi abetic 5.7 - 6.4 % Diabetic >or= 6.5 % Please note range changes. XR RIBS/CHEST 3V AP RIB/OBLS /CXR RIGHTon 09-01-2022 [facility] XR Ribs - right Views and Ch est PAon 09-01-2022 IMPRESSION: No acute osseous abnormalities are identified. Client Services Account Manager: TOI Transcribe Date/Time: Sep 01 2022 3:54P Dictated by : DENIA BELL MD This examination was interpreted and the report reviewed and electronically signed by: DENIA BELL MD on Sep 01 2022 3:59PM [facility] DIVISION OF RADIOLOGY * * *Final Report* * * DATE OF EXAM: Sep 01 2022 3:45PM WOX [id number] - XR RIB/CHST 3V AP RIB/OBL/CHST R / PROCEDURE REASON: multiple diagnoses * * * * Physician Interpretation * * * * RIGHT RIB X-RAYS HISTORY: Acute cough Rib pain on right side TECHNIQUE: AP and oblique ribs. COMPARISON: None available. RESULT: Visible ribs are negative for fracture or other focal finding. The lungs appear clear. No pleural effusions are identified. The cardiac silhouette appears within normal limits. DIVISION OF RADIOLOGY Provider, [facility] - 09/01/2022 * * *Final Report* * * DATE OF EXAM: Sep 01 2022 3:45PM WOX [id number] - XR RIB/CHST 3V AP RIB/OBL/CHST R / PROCEDURE REASON: multiple diagnoses * * * * Physician Interpretation * * * * RIGHT RIB X-RAYS HISTORY: Acute cough Rib pain on right side TECHNIQUE: AP and oblique ribs. COMPARISON: None available. RESULT: Visible ribs are negative for fracture or other focal finding. The lungs appear clear. No pleural effusions are identified. The cardiac silhouette appears within normal limits. IMPRESSION IMPRESSION: No acute osseous abnormalities are identified. Client Services Account Manager: TOI Transcribe Date/Time: Sep 01 2022 3:54P Dictated by : DENIA BELL MD This examination was interpreted and the report reviewed and electronically signed by: DENIA BELL MD on Sep 01 2022 3:59PM EST [facility] Radiology Study observation (narrative) [facility] XR Ribs - right Views and Ch est PAOrdered By: [facility] Provider on 09-01-2022 [facility] Basophil percentageOrdered B y: Dr. Delarosa on 08-25-2022 Basophil percentage 0-5 SEEN /hpf 0-5 [facility] Chloride [Moles/Vol] 102 mmol/L 98-107 [facility] Glucose [Mass/Vol] 220 mg/dL 74-106 [facility] Comment on above: Glucose result great er than or equal to 200 mg/dLsuggests DIABETES MELLITUS per A.D.A. criteria. Potassium [Moles/Vol] 3.7 mmol/L 3.5-5.1 [facility] Sodium [Moles/Vol] 138 mmol/L 136-145 [facility] WBC (Bld) [#/Vol] 9.3 10*3/uL 4.4-11.0 [facility] Bilirubin Test strip Ql (U)O rdered By: Dr. Delarosa on 08-25-2022 Bilirubin Ql (U) Negative Negative [facility] Blood erythrocytes count (nu mber/volume)Ordered By: Dr. Delarosa on 08-25-2022 RBC (Bld) [#/Vol] 5.17 10*6/uL 4.6-6.2 [facility] Blood hemoglobin measurement (mass/volume)Ordered By: Dr. Delarosa on 08-25-2022 Hemoglobin (Bld) [Mass/Vol] 16.2 g/dL 13.0-16.5 [facility] Blood platelet mean volumeOr dered By: Dr. Delarosa on 08-25-2022 Platelet mean volume (Bld) [Entitic vol] 9.4 fL 6.2-12.0 [facility] Determination of erythrocyte mean corpuscular volume (MCV)Ordered By: Dr. Delarosa on 08-25-2022 MCV (RBC) [Entitic vol] 91.3 fL 80-94 [facility] Hematocrit Auto (Bld) [Volum e fraction]Ordered By: Dr. Delarosa on 08-25-2022 Hematocrit (Bld) [Volume fraction] 47.2 % 40-54 [facility] Ketones Test strip Ql (U)Ord ered By: Dr. Delarosa on 08-25-2022 Ketones Ql (U) Negative Negative [facility] Laboratory - Chemistry and C hemistry - challengeOrdered By: Dr. Delarosa on 08-25-2022 CO2 [Moles/Vol] 28.0 mmol/L 21.0-32.0 [facility] Urea nitrogen/Creatinine [Mass ratio] 14.0 mg/mg 10-20 [facility] Laboratory - Hematology and Cell countsOrdered By: Dr. Delarosa on 08-25-2022 Erythrocyte distribution width (RBC) [Entitic vol] 40.6 fL 35.1-43.9 [facility] Erythrocyte distribution width (RBC) [Ratio] 12.1 % 11.6-14.6 [facility] MCH (RBC) [Entitic mass] 31.3 pg 27.0-32.0 [facility] MCHC Auto (RBC) [Mass/Vol]Or dered By: Dr. Delarosa on 08-25-2022 MCHC (RBC) [Mass/Vol] 34.3 g/dL 32-36 [facility] Mucus LM Ql (Urine sed)Order ed By: Dr. Delarosa on 08-25-2022 Mucus Ql (Urine sed) 0 SEEN /hpf [facility] Nitrite Test strip Ql (U)Ord ered By: Dr. Delarosa on 08-25-2022 Nitrite Ql (U) Negative Negative [facility] No Panel InformationOrdered By: Dr. Delarosa on 08-25-2022 Estimated Creatinine Clearance Calc 74.49 ml/min [facility] Estimated GFR (MDRD) Amer 72 mL/min >60 [facility] Comment on above: GFR Calc Estimated GFR (MDRD) Non-Af Amer 60 mL/min >60 [facility] Comment on above: Non- GFR Calc Troponin I High Sensitivity 6 pg/mL 3.0-78.0 [facility] Comment on above: Please Note: New Priya t Units and Gender Specific Reference Ranges. For more information see Policy Stat Procedure [place] High Sensitivity Troponin (TNIH) and attachments. Platelets bldOrdered By: Dr. Delarosa on 08-25-2022 Platelets (Bld) [#/Vol] 240 10*3/uL 150-450 [facility] Protein Test strip Ql (U)Ord ered By: Dr. Delarosa on 08-25-2022 Protein Ql (U) 15 mg/dl Negative [facility] Serum or plasma calcium teresita urement (mass/volume)Ordered By: Dr. Delarosa on 08-25-2022 Calcium [Mass/Vol] 9.4 mg/dL 8.5-10.1 [facility] Serum or plasma creatinine m easurement (mass/volume)Ordered By: Dr. Delarosa on 08-25-2022 Creatinine [Mass/Vol] 1.36 mg/dL 0.70-1.30 [facility] Comment on above: The validity of the calculated GFR & GFRAA in patients over 70 years has not been determined. Clinical correlation is essential. Serum or plasma urea nitroge n measurement (mass/volume)Ordered By: Dr. Delarosa on 08-25-2022 Urea nitrogen [Mass/Vol] 19 mg/dL 7-18 [facility] Squamous epithelial cells de tection in urine sediment by light microscopyOrdered By: Dr. Delarosa on 08-25-2022 Epithelial cells.squamous LM Ql (Urine sed) 0-5 SEEN /hpf 0-5 [facility] Thin prep Papanicolaou smear with manual screeningOrdered By: Dr. Delarosa on 08-25-2022 Thin prep Papanicolaou smear with manual screening 8 5-15 [facility] Urine blood detectionOrdered By: Dr. Delarosa on 08-25-2022 RBC Ql (U) Negative Negative [facility] RBC Ql (U) 0 SEEN /hpf 0-5 [facility] Urine clarityOrdered By: Dr. Delarosa on 08-25-2022 Clarity (U) Clear Clear [facility] Urine color determinationOrd ered By: Dr. Delarosa on 08-25-2022 Color (U) Yellow Yellow [facility] Urine glucose detectionOrder ed By: Dr. Delarosa on 08-25-2022 Glucose Ql (U) 250 mg/dl Normal [facility] Urine leukocyte esterase det ection by dipstickOrdered By: Dr. Delarosa on 08-25-2022 Leukocyte esterase Test strip Ql (U) Negative Negative [facility] Urine pHOrdered By: Dr. Kayce martinez on 08-25-2022 pH (U) 6.0 [pH] 5.0 - 8.0 [facility] Urine sediment bacteria coun t by microscopy (number/high power field)Ordered By: Dr. Delarosa on 08-25-2022 Bacteria LM.HPF (Urine sed) [#/Area] 0 /[HPF] None Seen [facility] Urine specific gravity measu rementOrdered By: Dr. Delarosa on 08-25-2022 Specific gravity (U) [Rel density] 1.015 1.002-1.030 [facility] Urobilinogen Auto test strip Ql (U)Ordered By: Dr. Delarosa on 08-25-2022 Urobilinogen Ql (U) Normal mg/dl Normal [facility] Aldosterone/renin activity r atioOrdered By: Dr. Hernández on 05-18-2022 Aldosterone/Renin (P) [Ratio] 3.4 0.0-30.0 [facility] Comment on above: Units: ng/dL per ng/ mL/hrPerformed at: [facility] - [facility] [address] [id number] Director: Dilma Gaxiola MD, Phone: [phone] Plasma renin measurement (en zymatic activity/volume)Ordered By: Dr. Hernández on 05-18-2022 Renin (P) [Catalytic activity/Vol] 0.803 ng/mL/hr 0.167-5.380 [facility] Thin prep Papanicolaou smear with manual screeningOrdered By: Dr. Hernández on 05-18-2022 Thin prep Papanicolaou smear with manual screening 2.7 ng/dL 0.0-30.0 [facility] Absolute lymphocyte counton 04-16-2022 Lymphocytes Auto (Unsp spec) [#/Vol] 2.52 10*3/uL 0.83-4.51 [facility] Work Phone: [phone] Basophil percentageon 2021 Basophils/100 WBC (Bld) 0.5 % 0-1 [facility] Work Phone: Bilirubin [Mass/Vol] 0.40 mg/dL 0.20-1.00 [facility] Work Phone: Comment on above: For patients on eltr ombopag therapy, use of Dimension [place] TBIL is not recommended. Chloride [Moles/Vol] 105 mmol/L 98-107 [facility] Work Phone: [phone] Cholesterol [Mass/Vol] 247 mg/dL <200 [facility] Work Phone: Comment on above: <200 mg/dL Desirable 200-240 mg/dL Borderline >240 mg/dL High Risk Eosinophils/100 WBC (Bld) 1.3 % 0-5 [facility] Work Phone: [phone] Glucose [Mass/Vol] 126 mg/dL 74-106 [facility] Work Phone: Comment on above: Fasting Glucose resu lt greater than or equal to 126 mg/dL suggests DIABETES MELLITUS per A.D.A. criteria. Neutrophils (Bld) [#/Vol] 5.1 10*3/uL 2.0-7.7 [facility] Work Phone: [phone] Neutrophils/100 WBC (Bld) 60.3 % 47-70 [facility] Work Phone: [phone] Potassium [Moles/Vol] 3.4 mmol/L 3.5-5.1 [facility] Work Phone: [phone] Protein [Mass/Vol] 7.2 g/dL 6.4-8.2 [facility] Work Phone: [phone] Sodium [Moles/Vol] 140 mmol/L 136-145 [facility] Work Phone: [phone] Triglyceride [Mass/Vol] 309 mg/dL <199 [facility] Work Phone: [phone] Comment on above: The drugs N-Acetylcy steine and Metamizole may falsely depress this assay.Serum Triglycerides Reference Interval Normal <150 mg/dL Borderline high 150 - 199 mg/dL High 200 - 499 mg/dL Very High > or = 500 mg/dL WBC (Bld) [#/Vol] 8.4 10*3/uL 4.4-11.0 [facility] Work Phone: [phone] Blood erythrocytes count (nu mber/volume)on 04-16-2022 RBC (Bld) [#/Vol] 4.95 10*6/uL 4.6-6.2 [facility] Work Phone: [phone] Blood hemoglobin measurement (mass/volume)on 04-16-2022 Hemoglobin (Bld) [Mass/Vol] 15.9 g/dL 13.0-16.5 [facility] Work Phone: Blood lymphocytes/100 leukoc yteson 04-16-2022 Lymphocytes/100 WBC (Bld) 29.9 % 19-41 [facility] Work Phone: Blood monocytes/100 leukocyt eson 04-16-2022 Monocytes/100 WBC (Bld) 7.6 % 0-10 [facility] Work Phone: Blood platelet mean volumeon 04-16-2022 Platelet mean volume (Bld) [Entitic vol] 9.5 fL 6.2-12.0 [facility] Work Phone: [phone] Determination of erythrocyte mean corpuscular volume (MCV)on 04-16-2022 MCV (RBC) [Entitic vol] 90.9 fL 80-94 [facility] Work Phone: [phone] Hematocrit Auto (Bld) [Volum e fraction]on 04-16-2022 Hematocrit (Bld) [Volume fraction] 45.0 % 40-54 [facility] Work Phone: [phone] Laboratory - Chemistry and C hemistry - challengeon 04-16-2022 ALP [Catalytic activity/Vol] 65 U/L 45-117 [facility] Work Phone: ALT [Catalytic activity/Vol] 70 U/L 16-61 [facility] Work Phone: CO2 [Moles/Vol] 26.0 mmol/L 21.0-32.0 [facility] Work Phone: [phone] Globulin (S) [Mass/Vol] 3.3 g/dL 2.2-4.2 [facility] Work Phone: [phone] Urea nitrogen/Creatinine [Mass ratio] 9.6 mg/mg 10-20 [facility] Work Phone: [phone] Laboratory - Hematology and Cell countson 04-16-2022 Erythrocyte distribution width (RBC) [Entitic vol] 44.2 fL 35.1-43.9 [facility] Work Phone: [phone] Erythrocyte distribution width (RBC) [Ratio] 13.2 % 11.6-14.6 [facility] Work Phone: [phone] Immature granulocytes/100 WBC (Bld) 0.400 % 0.0-0.9 [facility] Work Phone: [phone] Comment on above: IG% - Immature Granu locytes (promyelocytes, myelocytes and metamyelocytes) > 1% indicates that a LEFT SHIFT is Present. MCH (RBC) [Entitic mass] 32.1 pg 27.0-32.0 [facility] Work Phone: [phone] Nucleated RBC/100 WBC (Bld) [Ratio] 0 % 0-5 [facility] Work Phone: [phone] MCHC Auto (RBC) [Mass/Vol]on 04-16-2022 MCHC (RBC) [Mass/Vol] 35.3 g/dL 32-36 [facility] Work Phone: No Panel Informationon 04-16 Estimated GFR (MDRD) Amer 99 mL/min >60 [facility] Work Phone: Comment on above: GFR Calc Estimated GFR (MDRD) Non-Af Amer 82 mL/min >60 [facility] Work Phone: Comment on above: Non- GFR Calc Platelets bldon 04-16-2022 Platelets (Bld) [#/Vol] 233 10*3/uL 150-450 [facility] Work Phone: Serum or plasma albumin teresita urement (mass/volume)on 04-16-2022 Albumin [Mass/Vol] 3.9 g/dL 3.2-5.0 [facility] Work Phone: Serum or plasma albumin/glob ulin mass ratioon 04-16-2022 Albumin/Globulin [Mass ratio] 1.2 {ratio} 0.9-2.4 [facility] Work Phone: Serum or plasma calcium teresita urement (mass/volume)on 04-16-2022 Calcium [Mass/Vol] 9.2 mg/dL 8.5-10.1 [facility] Work Phone: Serum or plasma cholesterol in HDL measurement (mass/volume)on 04-16-2022 Cholesterol in HDL [Mass/Vol] 42 mg/dL >40 [facility] Work Phone: Comment on above: The drugs N-Acetylcy steine and Metamizole may falsely depress this assay. Reference Range HDL <40 mg/dL Low HDL Cholesterol HDL >or= 60 mg/dL High HDL Cholesterol Serum or plasma cholesterol in VLDL measurement (mass/volume)on 04-16-2022 Cholesterol in VLDL [Mass/Vol] 62 mg/dL 5-40 [facility] Work Phone: Serum or plasma creatinine m easurement (mass/volume)on 04-16-2022 Creatinine [Mass/Vol] 1.04 mg/dL 0.70-1.30 [facility] Work Phone: Comment on above: The validity of the calculated GFR & GFRAA in patients over 70 years has not been determined. Clinical correlation is essential. Serum or plasma low density lipoprotein (LDL) cholesterol measurement (mass/volume)on 04-16-2022 Cholesterol in LDL [Mass/Vol] 143 mg/dL 0-130 [facility] Work Phone: Serum or plasma urea nitroge n measurement (mass/volume)on 04-16-2022 Urea nitrogen [Mass/Vol] 10 mg/dL 7-18 [facility] Work Phone: Thin prep Papanicolaou smear with manual screeningon 04-16-2022 Thin prep Papanicolaou smear with manual screening 25 U/L 15-37 [facility] Work Phone: Thin prep Papanicolaou smear with manual screening 9 5-15 [facility] Work Phone: Vital Signs Date Time Vital Sign Value Performing Clinician Facility 09-20-2022 08:13-0400 Body temperature 97.11 [degF] Darren Gordon MD Work Phone: [facility] 09-20-2022 08:13-0400 Body weight 104.87 kg Darren Gordon MD Work Phone: [facility] 09-20-2022 08:13-0400 Diastolic blood pressure 82 mm[Hg] Darren Gordon MD Work Phone: [facility] 09-20-2022 08:13-0400 Heart rate 72 /min Darren Gordon MD Work Phone: [facility] 09-20-2022 08:13-0400 Respiratory rate 20 /min Darren Gordon MD Work Phone: [facility] 09-20-2022 08:13-0400 SaO2% (BldA) [Mass fraction] 98 % Darren Gordon MD Work Phone: [facility] 09-20-2022 08:13-0400 Systolic blood pressure 124 mm[Hg] Darren Gordon MD Work Phone: [facility] 09-01-2022 15:06-0500 Body temperature 96.91 [degF] Kalina Kidd SPECIAL NEEDS TUTOR.ADMINISTRATIVE COORDINATOR Work Phone: [facility] 09-01-2022 15:06-0500 Body weight 104.33 kg Kalina Kidd SPECIAL NEEDS TUTOR.ADMINISTRATIVE COORDINATOR Work Phone: [facility] 09-01-2022 15:06-0500 Diastolic blood pressure 82 mm[Hg] Kalina Kidd SPECIAL NEEDS TUTOR.ADMINISTRATIVE COORDINATOR Work Phone: [facility] 09-01-2022 15:06-0500 Heart rate 76 /min Kalina Kidd SPECIAL NEEDS TUTOR.ADMINISTRATIVE COORDINATOR Work Phone: [facility] 09-01-2022 15:06-0500 Respiratory rate 16 /min Kalina Kidd SPECIAL NEEDS TUTOR.ADMINISTRATIVE COORDINATOR Work Phone: [facility] 09-01-2022 15:06-0500 SaO2% (BldA) [Mass fraction] 97 % Kalina Kidd SPECIAL NEEDS TUTOR.ADMINISTRATIVE COORDINATOR Work Phone: [facility] 09-01-2022 15:06-0500 Systolic blood pressure 136 mm[Hg] Kalina Kidd SPECIAL NEEDS TUTOR.ADMINISTRATIVE COORDINATOR Work Phone: [facility] 08-25-2022 14:44-0500 Diastolic blood pressure 95 mm[Hg] [facility] 08-25-2022 14:44-0500 Heart rate 81 /min [facility] 08-25-2022 14:44-0500 Respiratory rate 18 /min [facility] 08-25-2022 14:44-0500 SaO2% (BldA) [Mass fraction] 98 % [facility] 08-25-2022 14:44-0500 Systolic blood pressure 145 mm[Hg] [facility] 08-25-2022 12:21-0500 Body height 182.88 cm [facility] 08-25-2022 12:21-0500 Body mass index (BMI) [Ratio] 31.1 kg/m2 [facility] 08-25-2022 12:21-0500 Body temperature 97.1 [degF] [facility] 08-25-2022 12:21-0500 Body weight 104.32 kg [facility] 12-28-2021 12:10-0400 Body temperature 97.3 [degF] Katya Barragan APRN.ADMINISTRATIVE COORDINATOR Work Phone: [facility] 12-28-2021 12:10-0400 Body weight 100.25 kg Katya Barragan APRN.ADMINISTRATIVE COORDINATOR Work Phone: [facility] 12-28-2021 12:10-0400 Diastolic blood pressure 80 mm[Hg] Katya Barragan APRN.ADMINISTRATIVE COORDINATOR Work Phone: [facility] 12-28-2021 12:10-0400 Heart rate 82 /min Katya Barragan APRN.ADMINISTRATIVE COORDINATOR Work Phone: [facility] 12-28-2021 12:10-0400 Respiratory rate 16 /min Katya Barragan APRN.ADMINISTRATIVE COORDINATOR Work Phone: [facility] 12-28-2021 12:10-0400 SaO2% (BldA) [Mass fraction] 97 % Katya Barragan APRN.ADMINISTRATIVE COORDINATOR Work Phone: [facility] 12-28-2021 12:10-0400 Systolic blood pressure 128 mm[Hg] Katya Barragan APRN.ADMINISTRATIVE COORDINATOR Work Phone: [facility] Encounters Encounter Date Encounter Type Care Provider Facility Start: 02-22-2025 ambulatory Sascha Mejia litlakshmi:[facility] Start: 12-26-2024 Encounter for genera l adult medical examination without abnormal findings Kira Hernández [facility] Start: 12-20-2024 End: 12-20-[address] Kira Hernández DO Work Phone: [facility] Work Phone: Start: 12-20-2024 End: 12-20-[address] Kira Hernández DO -Laboratory Specimen Work Phone: Start: 12-19-2024 End: 12-20-[address] Kira Hernández DO Work Phone: [facility] Work Phone: Start: 12-19-2024 End: 12-19-[address] 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 Dx) Start: 08-29-2023 End: 08-29-2023 ambulatory RAS ALMAZAN Facility:[facility] Start: 08-29-2023 End: 08-29-2023 ambulatory Kalina O'Malachi PT [facility] Comment on above: 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 Dx) Start: 08-25-2023 End: 08-25-2023 ambulatory McKena Thoennes PT, DPT [facility] Comment on above: 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 Dx) Start: 08-22-2023 End: 08-22-2023 ambulatory KIRA HERNÁNDEZ Facility:[facility] Start: 08-22-2023 End: 08-22-2023 ambulatory Kalina O'Malachi PT [facility] Comment on above: 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 Dx) Start: 08-18-2023 End: 08-18-2023 ambulatory McKena Thoennes PT, DPT [facility] Comment on above: 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 Dx) Start: 08-15-2023 End: 08-15-2023 ambulatory KIRA HERNÁNDEZ Facility:[facility] Start: 08-15-2023 End: 08-15-2023 ambulatory Kalina O'Malachi PT [facility] Comment on above: 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 Dx) Start: 08-12-2023 End: 08-12-2023 ambulatory KIRA HERNÁNDEZ Facility:[facility] Start: 08-12-2023 End: 08-12-2023 ambulatory Jaleesa Dickerson PTA Work Phone: [facility] Comment on above: 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 Dx) Start: 08-08-2023 End: 08-08-2023 ambulatory KIRA HERNÁNDEZ Facility:[facility] Start: 08-01-2023 End: 08-01-2023 ambulatory RAS ETSCHEIDT Facility:[facility] Start: 05-30-2023 End: 05-30-2023 ambulatory RAS ETSCHEIDT Facility:[facility] Start: 05-23-2023 End: 05-23-2023 ambulatory RAS ETSCHEIDT Facility:[facility] Start: 05-23-2023 End: 05-23-2023 ambulatory Kalina O'Malachi PT [facility] Comment on above: Knee internal derang ement, right (Primary Dx) Start: 05-10-2023 End: 05-10-2023 ambulatory RAS ETSCHEIDT Facility:[facility] Start: 04-27-2023 End: 04-27-2023 ambulatory RAS ETSCHEIDT Facility:[facility] Start: 04-27-2023 End: 04-27-2023 ambulatory Kalina O'Malachi PT [facility] Comment on above: Knee internal derang ement, right (Primary Dx) Start: 12-24-2022 End: 12-24-2022 ambulatory [facility] Work Phone: Start: 12-24-2022 End: 12-24-2022 Patient encounter procedure [facility]-Ultrasound, WC Start: 12-17-2022 End: 12-17-2022 ambulatory [facility] Work Phone: Start: 12-17-2022 End: 12-17-2022 Patient encounter procedure [facility]Cnoy Small AGUSTIN Start: 11-09-2022 End: 11-09-2022 ambulatory [facility] Work Phone: Start: 11-09-2022 End: 11-09-2022 [facility] Start: 09-20-2022 End: 09-20-2022 ambulatory [facility] Facility:[facility] Start: 09-20-2022 End: 09-20-2022 Patient encounter procedure Darren Gordon MD Work Phone: [facility] Comment on above: Acute non-recurrent sinusitis, unspecified location (Primary Dx); Otalgia of left ear Start: 09-09-2022 End: 09-09-2022 ambulatory [facility] Work Phone: Start: 09-09-2022 End: 09-09-2022 [facility] Start: 09-01-2022 End: 09-01-2022 Subsequent hospital visit by physician Lorene [facility] Work Phone: Radiology Comment on above: Acute cough [R05.1] Start: 09-01-2022 End: 09-01-2022 Patient encounter procedure Kalina Kidd APRN.CNP Work Phone: [facility] Comment on above: Acute cough (Primary Dx); Rib pain on right side; Rhinosinusitis Start: 08-25-2022 End: 08-25-2022 Emergency department patient visit [facility]Emergency Department Start: 05-21-2022 End: 05-21-2022 ambulatory [facility] Work Phone: Start: 05-21-2022 End: 05-21-2022 Patient encounter procedure [facility]Sleep Lab Start: 05-18-2022 End: 05-18-2022 [facility] Start: 05-11-2022 End: 05-11-2022 ambulatory [facility] Work Phone: Start: 05-11-2022 End: 05-11-2022 Patient encounter procedure [facility]Sleep [facility] Start: 04-16-2022 End: 04-16-2022 ambulatory [facility] Work Phone: Start: 04-16-2022 End: 04-16-2022 Patient encounter procedure [facility]-Laboratory, Cony Bailey [facility] Start: 12-28-2021 End: 12-28-2021 Patient encounter procedure Katya Barragan APRN.ADMINISTRATIVE COORDINATOR Work Phone: [facility] Comment on above: Cough (Primary Dx) Procedures Date Procedure Procedure Detail Performing Clinician Start: 12-24-2022 End: 12-24-2022 Ultrasonography of limb Start: 09-01-2022 Radex ribs uni w/pos teroant ch minimum 3 views Kalina Kidd SPECIAL NEEDS TUTOR.ADMINISTRATIVE COORDINATOR Work Phone: Start: 12-10-2015 Adult depression scr eening assessment Katya Barragan APRN.ADMINISTRATIVE COORDINATOR Work Phone: Plan of Treatment Date Care Activity Detail Author Start: 03-11-2024 Covid-19 Vaccine () Covid-19 Vaccine () [facility] Start: 03-11-2024 Influenza vaccination Influenza Vacc ine (#1) [facility] Start: 07-11-2023 Depression Assessment Depression Ass essment [facility] Start: 03-11-2023 Influenza vaccination Influenza Vacc ine (#1) [facility] Start: 09-09-2022 Procedure [facility] Start: 07-11-2022 DEPRESSION ASSESSMENT DEPRESSION ASS ESSMENT [facility] Start: 03-11-2022 Influenza vaccination C [facility] Start: 12-28-2021 End: 01-11-2022 Influenza virus A and B RNA and SARS-CoV-2 (COVID-19) N gene panel - Respiratory specimen by JOSEF with probe detection COVID WITH FLUA+B, ROUTINE Microbiology Routine Cough Expected: 12/28/2021, Expires: 01/11/2022 [facility] Work Phone: Comment on above: Expected: 12/28/2021 , Expires: 01/11/2022 Start: 02-12-2021 COLOGUARD (FIT-DNA) COLOGUARD (FIT-D NA) [facility] Start: 02-12-2021 Colonoscopy COLONOSCOPY [facility] Start: 02-12-2021 COLORECTAL CANCER SCREENING COLORECTAL CANCER SCREENING [facility] Start: 02-12-[address] COLONOGRAPHY [facility] Start: 02-12-2021 DIABETES SCREEN DIABETES SCREEN [facility] Start: 02-12-2021 Diabetes Screening Diabetes Screenin g [facility] Start: 02-12-2021 FECAL OCCULT BLOOD FECAL OCCULT BLOO D [facility] Start: 02-12-2021 Screening for malign ant neoplasm of colon [facility] Start: 02-12-2021 SIGMOIDOSCOPY SIGMOIDOSCOPY [facility] Start: 12-09-2016 Adult depression screening assessment DEPRESSION SCREENING [facility] Start: 02-12-2011 Lipid 1996 panel - S caitlyn or Plasma Lipid Screening [facility] Start: 02-12-2011 Lipid panel Lipid Screening [facility] Start: 02-12-2011 LIPID SCREEN LIPID SCREEN [facility] Start: 02-12-1995 Hepatitis B Vaccine (1 of 3 - 19+ 3-dose series) Hepatitis B Vaccine (1 of 3 - 19+ 3-dose series) [facility] Start: 02-12-1995 Urine microalbumin profile [facility] Start: 02-12-1994 Anxiety Screening Anxiety Screening [facility] Start: 02-12-1994 Depression Screening Depression Scre ening [facility] Start: 02-12-1994 HEPATITIS C SCREENING HEPATITIS C [facility] Start: 02-12-1994 Hepatitis C screening Hepatitis C [facility] Start: 02-12-1994 HIV SCREENING HIV SCREENING [facility] Start: 02-12-1994 HIV screening HIV Screening [facility] Start: 02-12-1982 PNEUMOCOCCAL (1 - PCV) PNEUMOCOCCAL (1 - PCV) [facility] Start: 02-12-1982 Pneumococcal vaccination [facility] Start: 02-12-1981 COVID-19 VACCINE (#1) COVID-19 VACCI NE (#1) [facility] Start: 1976 COVID-19 VACCINE (#1) COVID-19 VACCI NE (#1) [facility] Start: 1976 HEPATITIS B (1 of 3 - 3-dose series) HEPATITIS B (1 of 3 - 3-dose series) [facility] Start: 1976 Hepatitis B Vaccine (1 of 3 - 3-dose series) Hepatitis B Vaccine (1 of 3 - 3-dose series) [facility] Patient Education ED Hypertensio n [facility] ED Hyperglycemia New Susp Diabetes [facility] Work Phone: Patient referral [facility] Work Phone: Testosterone Free [Mass/volume] in Serum or Plasma [facility] Testosterone measurement [facility] Payers Date Payer Category Payer Self-pay 2017 Unknown MMO MMO [employer] [id number] 2017-Present [phone] [address] [place] [address] PPO [id number] 2017 Unknown [id number] 2017 Unknown [id number] Unknown ANN MARIE [id number] Unknown [id number] Unknown [id number] Unknown [id number] Unknown [id number] Social History Date Type Detail Facility Start: 07-14-2020 End: 09-01-2022 Tobacco smoking status ARIS Smokes tobacco daily [facility] Start: 07-14-2020 End: 09-01-2022 Tobacco use and exposure User of smokeless tobacco [facility] Start: 1975 Sex Assigned At Not on file C [facility] Start: 11-12-2013 End: 08-25-2022 Tobacco smoking status ARIS Unknown if ever smoked [facility] Start: 1975 Sex Assigned At Male W [facility] Start: 07-14-2020 End: 09-20-2022 History of Social function [facility] Start: 07-14-2020 End: 09-20-2022 Tobacco use panel [facility] National Score (1-100), lower number is lower risk 72 [facility] Start: 09-09-2022 Gender identity Identifies as male gender (finding) [facility] Start: 01-03-2023 Tobacco smoking stat us ARIS Ex-smoker (finding) [facility] Mental Status Date Assessment Result Facility 08-25-2022 Cognitive function Level Of Cons ciousness Awake;Alert;Appropriate [facility] Work Phone: Clinical Notes 12-28-2021 to 08-31-2023 Kalina Hull, PT - 08/31/2023 2:50 PM Kalina Lindsay, PT - 08/29/2023 3:07 PM Kalina Lindsay PT - 08/29/2023 2:38 PM Sravani Vera PT, DPT - 08/25/2023 2:49 PM EST Note Date & Type Note Facility 08-31-2023 Note HNO ID: [id number] Author: KALINA HULL PT Service: ? Author Type: Physical Therapist Type: Progress Notes Filed: 08/31/2023 15:31 Note Text: Episode Visit Count: 9 Therapist That Will Accept/Oversee The Plan Of Care: Kalina Hull Start of Care Date: 08/01/23 Onset Date: 07/27/23 Plan of Care Certification Date: 08/01/23 Next Certification Due Date: 09/12/23 [facility] PHYSICAL THERAPY DISCONTINUANCE OF CARE PLAN OF CARE UPDATE: Assessment: Chasidy Mae is discontinued from Physical Therapy services due to goal achievement.. Patient was seen for 9 visits from Start of Care Date: 08/01/23 to 08/31/2023 and treatment included: Therapeutic exercise and Neuromuscular re-education. Goals for Episode of Care: created on 08/01/23 through 09/12/23 Goals updated on 08/31/2023. [place] in home exercise program. -- MET Patient will decrease pain rating by 2 points to meet minimal clinical important difference for numeric pain rating scale. -- MET Patient will increase active ROM of right knee long arc quad extension to 0 degrees to allow pt to to improve postural alignment, to improve performance of ADLs, to improve gait mechanics / gait pattern , and to decrease falls risks . -- PARTIALLY MET, -3 Patient will demonstrate increase in right quadriceps strength to 4+/5 during manual muscle testing in order to improve function for prior functional tasks and work tasks. -- MET Perform sit community distance ambulation with decreased report of symptoms/pain in 6 weeks. -- MET Normal gait. -- MET Reciprocal stair negotiation. -- MET Patient will demonstrate improved neuromuscular coordination as evidenced by improve function for prior functional tasks and work tasks. -- MET Patient Goals: return to work activities without limitation due to pain or Weakness -- MET SUBJECTIVE: Pt. reports heavy work outdoors today without limitation.. Patient Goals: return to work activities without limitation due to pain or weakness Functional Limitations: walking, walking in the house, walking in the community, stair negotiation Pain: Pain Pain Level: 0 Pain Location: Knee - Right Post Treatment Pain Post Treatment Pain Level: 0 Post Treatment Pain Location: Knee - Right PROMIS Scales Higher is Better 08/28/2023 07/30/2023 05/23/2023 Phys Func - Score 46 (within normal limits) 46 (within normal limits) - Phys Func - Percentile 34% 34% - Self-Eff Symptom - Score 45 (Average) 40 (Average) 44 (Average) Self-Eff Symptom - Percentile 31% 16% 27% T-scores: mean of general population = 50. 5 points is clinically meaningfully difference Percentiles provide an indication of how the patient's score ranks in relation to the general population. Higher percentile rankings indicate better function/quality of life. 50th percentile is the average of the general population and indicates half of respondents had a worse score. OBJECTIVE MEASURES WITH LEVEL OF FUNCTION: LE AROM R Knee Extension: -3 Degrees TREATMENT: Therapeutic Exercise: 1: SciFit bike 5 min, level 3, 1:1 throughout subjective collected 2: eccentric heel lower x3 sec tempo no UE support 6 3x8 each side (intermittent use of UE support) 3: seated LAQ 5x5 sec hold R 4: standing calf stretch 3x30 sec 5: air squats 2x10 Skilled Intervention: Patient was educated in proper exercise technique and purpose for exercises. Reviewed and educated patient on additions/changes for home exercise program as above (*). Skilled judgment was used in selection of appropriate interventions. Correct performance of therapeutic exercises was facilitated with verbal, visual, and tactile cuing. Educated patient on rationale for performing exercises in regards to decreasing fatigue , increase ease of ADL, and ROM and function . Patient education as noted. Neuromuscular Re-Education: 1: kneel on foam to standing without UE assist, knee on foam 5x each side 2: fwd mini lunge into BOSU ball 2x20 each side (x1 UE support // bars) 3: lateral mini lunge into BOSU ball 2x15 each side Skilled Intervention: Skilled judgment used to assess appropriate program for balance and coordination activity. Education in proprioceptive/kinesthetic awareness during standing and dynamic activities. Reviewed and educated patient on additions/changes for home program as noted above with an (*). Patient education as noted. Gait Training: Distance (feet): 80' Gait Cues: heel strike and push off LLE Assistive Device: none Assist Level: superivsion Stair Traininx6 steps without HR ascending and descending with reciprocal pattern Skilled Intervention: Patient was provided independence during pre-gait/gait training to prevent falls and insure safety. Reviewed and educated patient on additions/changes for home program as noted above with an (*). Billing Therapeutic Exercise Treatment Minutes: 20 (more content not included)... [facility] 08-31-2023 History of Present illness Narrative Episode Visit Count: 9 Therapist That Will Accept/Oversee The Plan Of Care: Kalina Hull Start of Care Date: 08/01/23 Onset Date: 07/27/23 Plan of Care Certification Date: 08/01/23 Next Certification Due Date: 09/12/23 REHABILITATION AND SPORTS THERAPY PHYSICAL THERAPY DISCONTINUANCE OF CARE PLAN OF CARE UPDATE: Assessment: Chasidy Bustamante Catrachitobertha is discontinued from Physical Therapy services due to goal achievement.. Patient was seen for 9 visits from Start of Care Date: 08/01/23 to 08/31/2023 and treatment included: Therapeutic exercise and Neuromuscular re-education. Goals for Episode of Care: created on 08/01/23 through 09/12/23 Goals updated on 08/31/2023. [place] in home exercise program. -- MET Patient will decrease pain rating by 2 points to meet minimal clinical important difference for numeric pain rating scale. -- MET Patient will increase active ROM of right knee long arc quad extension to 0 degrees to allow pt to to improve postural alignment, to improve performance of ADLs, to improve gait mechanics / gait pattern , and to decrease falls risks . -- PARTIALLY MET, -3 Patient will demonstrate increase in right quadriceps strength to 4+/5 during manual muscle testing in order to improve function for prior functional tasks and work tasks. -- MET Perform sit community distance ambulation with decreased report of symptoms/pain in 6 weeks. -- MET Normal gait. -- MET Reciprocal stair negotiation. -- MET Patient will demonstrate improved neuromuscular coordination as evidenced by improve function for prior functional tasks and work tasks. -- MET Patient Goals: return to work activities without limitation due to pain or Weakness -- MET SUBJECTIVE: Pt. reports heavy work outdoors today without limitation.. Patient Goals: return to work activities without limitation due to pain or weakness Functional Limitations: walking, walking in the house, walking in the community, stair negotiation Pain: Pain Pain Level: 0 Pain Location: Knee - Right Post Treatment Pain Post Treatment Pain Level: 0 Post Treatment Pain Location: Knee - Right PROMIS Scales Higher is Better 08/28/2023 07/30/2023 05/23/2023 Phys Func - Score 46 (within normal limits) 46 (within normal limits) - Phys Func - Percentile 34% 34% - Self-Eff Symptom - Score 45 (Average) 40 (Average) 44 (Average) Self-Eff Symptom - Percentile 31% 16% 27% T-scores: mean of general population = 50. 5 points is clinically meaningfully difference Percentiles provide an indication of how the patient's score ranks in relation to the general population. Higher percentile rankings indicate better function/quality of life. 50th percentile is the average of the general population and indicates half of respondents had a worse score. OBJECTIVE MEASURES WITH LEVEL OF FUNCTION: LE AROM R Knee Extension: -3 Degrees TREATMENT: Therapeutic Exercise: 1: SciFit bike 5 min, level 3, 1:1 throughout subjective collected 2: eccentric heel lower x3 sec tempo no UE support 6 3x8 each side (intermittent use of UE support) 3: seated LAQ 5x5 sec hold R 4: standing calf stretch 3x30 sec 5: air squats 2x10 Skilled Intervention: Patient was educated in proper exercise technique and purpose for exercises. Reviewed and educated patient on additions/changes for home exercise program as above (*). Skilled judgment was used in selection of appropriate interventions. Correct performance of therapeutic exercises was facilitated with verbal, visual, and tactile cuing. Educated patient on rationale for performing exercises in regards to decreasing fatigue , increase ease of ADL, and ROM and function . Patient education as noted. Neuromuscular Re-Education: 1: kneel on foam to standing without UE assist, knee on foam 5x each side 2: fwd mini lunge into BOSU ball 2x20 each side (x1 UE support // bars) 3: lateral mini lunge into BOSU ball 2x15 each side Skilled Intervention: Skilled judgment used to assess appropriate program for balance and coordination activity. Education in proprioceptive/kinesthetic awareness during standing and dynamic activities. Reviewed and educated patient on additions/changes for home program as noted above with an (*). Patient education as noted. Gait Training: Distance (feet): 80' Gait Cues: heel strike and push off LLE Assistive Device: none Assist Level: superivsion Stair Traininx6 steps without HR ascending and descending with reciprocal pattern Skilled Intervention: Patient was provided independence during pre-gait/gait training to prevent falls and insure safety. Reviewed and educated patient on additions/changes for home program as noted above with an (*). Billing Therapeutic Exercise Treatment Minutes: 20 Neuromuscular Re-Education Treatment Minutes: 10 Gait Training Treatment Minutes: 10 Skilled Treatment Time Minutes (timed and untimed codes): 40 Total Session Time (minutes): 40 Session Start Time : 1449 Session Stop Time : 1529 Kalina Hull PT documented in this encounter [facility] 08-29-2023 Note HNO ID: [id number] Author: KALINA HULL PT Service: ? Author Type: Physical Therapist Type: Progress Notes Filed: 08/29/2023 15:22 Note Text: Episode Visit Count: 8 Therapist That Will Accept/Oversee The Plan Of Care: Kalina Hull Start of Care Date: 08/01/23 Onset Date: 07/27/23 Plan of Care Certification Date: 08/01/23 Next Certification Due Date: 09/12/23 REHABILITATION AND SPORTS THERAPY PHYSICAL THERAPY TREATMENT NOTE ASSESSMENT: Chasidy Mae tolerated the session with fatigue and expected muscle soreness. He demonstrated improvements in eccentric control with 4 eccentric heel lowering on step. The patient will continue to benefit from ongoing skilled physical therapy to progress toward set goals. PLAN FOR NEXT VISIT: PN -- determine continued PT or DC SUBJECTIVE: Pt. reports not much exertion since return to work due to meetings. He did use a leaf blower and this caused muscle fatigue. Pt. installed new washer and dryer, step to step pattern up and down the stairs today but without pain. Pain: Pain Pain Level: 0 Pain Location: Knee - Right Post Treatment Pain Post Treatment Pain Location: Knee - Right Post Treatment Symptoms: fatigued OBJECTIVE MEASURES WITH LEVEL OF FUNCTION: TREATMENT: Therapeutic Exercise: 1: SciFit bike 5 min, level 3, 1:1 throughout subjective collected 2: 10 step ups fwd no UE support 2x10 each side (no UE support) 3: *Access Code: [email or web address] URL: [email or web address] Date: 08/29/2023 Prepared by: Kalina Hull Exercises - Lateral Step Down - 2 x daily - 7 x weekly - 4 sets - 8 reps - 3 hold - Standing Terminal Knee Extension with Resistance - 2 x daily - 7 x weekly - 3 sets - 20 reps - 1 hold - Standing Heel Raise - 2 x daily - 7 x weekly - 2 sets - 15 reps - 3 hold Skilled Intervention: Patient was educated in proper exercise technique and purpose for exercises. Reviewed and educated patient on additions/changes for home exercise program as above (*). Provided written instruction for home exercise program to facilitate proper performance and compliance. Correct performance of therapeutic exercises was facilitated with verbal and visual cuing. Educated patient on rationale for performing exercises in regards to decreasing fatigue , including balance, increase ease of ADL, and ROM and function . Patient education as noted. Neuromuscular Re-Education: 1: lateral step ups 2x20 BOSU ball with x2UE support // bars (fatigued) 2: Standing Single Leg Stance with Counter Support - 2 x daily - 7 x weekly - 3-5 sets - 1 reps - 30 hold (30 R and L, no UE support) Skilled Intervention: Skilled judgment used to assess appropriate program for balance and coordination activity. Education in proprioceptive/kinesthetic awareness during standing and dynamic activities. Ensured patient safety with use of // bars. Provided written instruction for home program to facilitate proper performance and compliance. Patient education as noted. Billing Therapeutic Exercise Treatment Minutes: 30 Neuromuscular Re-Education Treatment Minutes: 10 Skilled Treatment Time Minutes (timed and untimed codes): 40 Total Session Time (minutes): 40 Session Start Time : 1438 Session Stop Time : 1518 Kalina Hull, PT [facility] 08-29-2023 History of Present illness Narrative Program_ID:[id number] Access Code: [email or web address] URL: [email or web address] Date: 08-29-2023 Prepared By: Kalina Hull Program Notes Exercises - Lateral Step Down - 2 x daily - 7 x weekly - 4 sets - 8 reps - Standing Terminal Knee Extension with Resistance - 2 x daily - 7 x weekly - 3 sets - 20 reps - Standing Heel Raise - 2 x daily - 7 x weekly - 2 sets - 15 reps - Standing Single Leg Stance with Counter Support - 2 x daily - 7 x weekly - 3-5 sets - 1 reps Episode Visit Count: 8 Therapist That Will Accept/Oversee The Plan Of Care: Kalina Hull Start of Care Date: 08/01/23 Onset Date: 07/27/23 Plan of Care Certification Date: 08/01/23 Next Certification Due Date: 09/12/23 REHABILITATION AND SPORTS THERAPY PHYSICAL THERAPY TREATMENT NOTE ASSESSMENT: Chasidy Mae tolerated the session with fatigue and expected muscle soreness. He demonstrated improvements in eccentric control with 4 eccentric heel lowering on step. The patient will continue to benefit from ongoing skilled physical therapy to progress toward set goals. PLAN FOR NEXT VISIT: PN -- determine continued PT or DC SUBJECTIVE: Pt. reports not much exertion since return to work due to meetings. He did use a leaf blower and this caused muscle fatigue. Pt. installed new washer and dryer, step to step pattern up and down the stairs today but without pain. Pain: Pain Pain Level: 0 Pain Location: Knee - Right Post Treatment Pain Post Treatment Pain Location: Knee - Right Post Treatment Symptoms: fatigued OBJECTIVE MEASURES WITH LEVEL OF FUNCTION: TREATMENT: Therapeutic Exercise: 1: SciFit bike 5 min, level 3, 1:1 throughout subjective collected 2: 10 step ups fwd no UE support 2x10 each side (no UE support) 3: *Access Code: [email or web address] URL: [email or web address] Date: 08/29/2023 Prepared by: Kalina Tucker Exercises - Lateral Step Down - 2 x daily - 7 x weekly - 4 sets - 8 reps - 3 hold - Standing Terminal Knee Extension with Resistance - 2 x daily - 7 x weekly - 3 sets - 20 reps - 1 hold - Standing Heel Raise - 2 x daily - 7 x weekly - 2 sets - 15 reps - 3 hold Skilled Intervention: Patient was educated in proper exercise technique and purpose for exercises. Reviewed and educated patient on additions/changes for home exercise program as above (*). Provided written instruction for home exercise program to facilitate proper performance and compliance. Correct performance of therapeutic exercises was facilitated with verbal and visual cuing. Educated patient on rationale for performing exercises in regards to decreasing fatigue , including balance, increase ease of ADL, and ROM and function . Patient education as noted. Neuromuscular Re-Education: 1: lateral step ups 2x20 BOSU ball with x2UE support // bars (fatigued) 2: Standing Single Leg Stance with Counter Support - 2 x daily - 7 x weekly - 3-5 sets - 1 reps - 30 hold (30 R and L, no UE support) Skilled Intervention: Skilled judgment used to assess appropriate program for balance and coordination activity. Education in proprioceptive/kinesthetic awareness during standing and dynamic activities. Ensured patient safety with use of // bars. Provided written instruction for home program to facilitate proper performance and compliance. Patient education as noted. Billing Therapeutic Exercise Treatment Minutes: 30 Neuromuscular Re-Education Treatment Minutes: 10 Skilled Treatment Time Minutes (timed and untimed codes): 40 Total Session Time (minutes): 40 Session Start Time : 1438 Session Stop Time : 1518 Kalina Hull PT documented in this encounter [facility] 08-25-2023 Note HNO ID: [id number] Author: SRAVANI GUERRA PT, DPT Service: ? Author Type: Physical Therapist Type: Progress Notes Filed: 08/25/2023 15:47 Note Text: Episode Visit Count: 7 Therapist That Will Accept/Oversee The Plan Of Care: Kalina Hull Start of Care Date: 08/01/23 Onset Date: 07/27/23 Plan of Care Certification Date: 08/01/23 Next Certification Due Date: 09/12/23 Patient Identified by Name and Date of : Yes REHABILITATION AND SPORTS THERAPY PHYSICAL THERAPY TREATMENT NOTE ASSESSMENT: Chasidy Mae tolerated the session with expected muscle soreness. He demonstrated muscle fatigue with step up exercise with TKE. Ongoing calf tightness noted, implemented calf stretch. The patient will continue to benefit from ongoing skilled physical therapy to progress toward set goals. PLAN FOR NEXT VISIT: Minimize SLS due to prior intolerance. Assess symptom response to return to work this week. SL hip stabilization strengthening, eccentric quad strength as patient tolerates. Consider eccentric heel lower on 2-4 step with UE support SUBJECTIVE: Patient reports he has eased into work this week. 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 Pain: Pain Pain Level: 1 Pain Location: Knee - Right Post Treatment Pain Post Treatment Pain Level: No Change Post Treatment Pain Location: Knee - Right (Muscle soreness) OBJECTIVE MEASURES WITH LEVEL OF FUNCTION: Gait Gait Observation: Slight antalgia with limited stance phase on the right. TREATMENT: Therapeutic Exercise: 1: SciFit bike 5 min, level 3, 1:1 throughout subjective collected 2: B heel raises in // bars with 3 sec ecc lower 2x15 3: 6 step up TKE verse GTB 2 x10 4: [address] hip verse GTB 2x10, // bars for balance 5: Seated LAQ 10x10 sec hold 6: Lateral band walks verse BTB at ankles 2x1 minute 7: Supine SLR 5 sec iso hold x10 left 8: Standing calf stretch 3x30 sec 9: Seated hip IR without resistance 2x20 bilat Skilled Intervention: Patient was educated in proper exercise technique and purpose for exercises. Skilled judgment was used in selection of appropriate interventions. Correct performance of therapeutic exercises was facilitated with verbal and visual cuing. Billing Therapeutic Exercise Treatment Minutes: 41 Skilled Treatment Time Minutes (timed and untimed codes): 41 Total Session Time (minutes): 41 Session Start Time : 1559 Session Stop Time : 1640 Sravani Guerra PT, DPT [facility] 08-25-2023 History of Present illness Narrative Episode Visit Count: 7 Therapist That Will Accept/Oversee The Plan Of Care: Kalina Hull Start of Care Date: 08/01/23 Onset Date: 07/27/23 Plan of Care Certification Date: 08/01/23 Next Certification Due Date: 09/12/23 Patient Identified by Name and Date of : Yes REHABILITATION AND SPORTS THERAPY PHYSICAL THERAPY TREATMENT NOTE ASSESSMENT: Chasidy Mae tolerated the session with expected muscle soreness. He demonstrated muscle fatigue with step up exercise with TKE. Ongoing calf tightness noted, implemented calf stretch. The patient will continue to benefit from ongoing skilled physical therapy to progress toward set goals. PLAN FOR NEXT VISIT: Minimize SLS due to prior intolerance. Assess symptom response to return to work this week. SL hip stabilization strengthening, eccentric quad strength as patient tolerates. Consider eccentric heel lower on 2-4 step with UE support SUBJECTIVE: Patient reports he has eased into work this week. 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 Pain: Pain Pain Level: 1 Pain Location: Knee - Right Post Treatment Pain Post Treatment Pain Level: No Change Post Treatment Pain Location: Knee - Right (Muscle soreness) OBJECTIVE MEASURES WITH LEVEL OF FUNCTION: Gait Gait Observation: Slight antalgia with limited stance phase on the right. TREATMENT: Therapeutic Exercise: 1: SciFit bike 5 min, level 3, 1:1 throughout subjective collected 2: B heel raises in // bars with 3 sec ecc lower 2x15 3: 6 step up TKE verse GTB 2 x10 4: [address] hip verse GTB 2x10, // bars for balance 5: Seated LAQ 10x10 sec hold 6: Lateral band walks verse BTB at ankles 2x1 minute 7: Supine SLR 5 sec iso hold x10 left 8: Standing calf stretch 3x30 sec 9: Seated hip IR without resistance 2x20 bilat Skilled Intervention: Patient was educated in proper exercise technique and purpose for exercises. Skilled judgment was used in selection of appropriate interventions. Correct performance of therapeutic exercises was facilitated with verbal and visual cuing. Billing Therapeutic Exercise Treatment Minutes: 41 Skilled Treatment Time Minutes (timed and untimed codes): 41 Total Session Time (minutes): 41 Session Start Time : 1559 Session Stop Time : 1640 Sravani Guerra PT, DPDick documented in this encounter [facility] 08-22-2023 Note HNO ID: [id number] Author: KALINA HULL PT Service: ? Author Type: Physical Therapist Type: Progress Notes Filed: 08/22/2023 15:21 Note Text: Episode Visit Count: 6 Therapist That Will Accept/Oversee The Plan Of Care: Kalina Hull Start of Care Date: 08/01/23 Onset Date: 07/27/23 Plan of Care Certification Date: 08/01/23 Next Certification Due Date: 09/12/23 REHABILITATION AND SPORTS THERAPY PHYSICAL THERAPY TREATMENT NOTE ASSESSMENT: Chasidy Mae tolerated the session with fatigue and expected muscle soreness. He demonstrated difficulty with long arc quad isometric hold x 10 sec due to fatigue.. The patient will continue to benefit from ongoing skilled physical therapy to progress toward set goals. PLAN FOR NEXT VISIT: seated long arc quad set with isometric hold. Avoid SLS on uneven surfaces due to increased symptoms reported by pt. this visit. Assess symptom response to return to work this week. consider SL hip stabilization strengthening. Consider eccentric heel lower on 2-4 step with UE support SUBJECTIVE: For increased medial R knee pain with SLS on foam while throwing ball trampoline last visit. Pt. returned to work today which he also attributes to increased symptoms today. Pain: Pain Pain Level: 2 Pain Location: Knee - Right Post Treatment Pain Post Treatment Pain Level: Better Post Treatment Pain Location: Knee - Right OBJECTIVE MEASURES WITH LEVEL OF FUNCTION: TREATMENT: Therapeutic Exercise: 1: SciFit bike 5 min, level 3, 1:1 throughout subjective collected 2: B heel raises in // bars 3x12 (BUE assist in // bars) 3: pro stretch 5x15 sec each side 4: mini squats in // bars 2x10 -- firm surface 5: Seated LAQ 10x10 sec hold 6: standing in // bars BUE support 2x20 Skilled Intervention: Patient was educated in proper exercise technique and purpose for exercises. Reviewed and educated patient on additions/changes for home exercise program as above (*). Skilled judgment was used in selection of appropriate interventions. Provided written instruction for home exercise program to facilitate proper performance and compliance. Correct performance of therapeutic exercises was facilitated with verbal, visual, and tactile cuing. Educated patient on rationale for performing exercises in regards to decreasing fatigue , including balance, increase ease of ADL, and ROM and function . Patient education as noted. Billing Therapeutic Exercise Treatment Minutes: 40 Skilled Treatment Time Minutes (timed and untimed codes): 40 Total Session Time (minutes): 40 Session Start Time : 1445 Session Stop Time : 1525 Kalina Hull, PT [facility] 08-22-2023 History of Present illness Narrative Episode Visit Count: 6 Therapist That Will Accept/Oversee The Plan Of Care: Kalina Hull Start of Care Date: 08/01/23 Onset Date: 07/27/23 Plan of Care Certification Date: 08/01/23 Next Certification Due Date: 09/12/23 REHABILITATION AND SPORTS THERAPY PHYSICAL THERAPY TREATMENT NOTE ASSESSMENT: Chasidy Mae tolerated the session with fatigue and expected muscle soreness. He demonstrated difficulty with long arc quad isometric hold x 10 sec due to fatigue.. The patient will continue to benefit from ongoing skilled physical therapy to progress toward set goals. PLAN FOR NEXT VISIT: seated long arc quad set with isometric hold. Avoid SLS on uneven surfaces due to increased symptoms reported by pt. this visit. Assess symptom response to return to work this week. consider SL hip stabilization strengthening. Consider eccentric heel lower on 2-4 step with UE support SUBJECTIVE: For increased medial R knee pain with SLS on foam while throwing ball trampoline last visit. Pt. returned to work today which he also attributes to increased symptoms today. Pain: Pain Pain Level: 2 Pain Location: Knee - Right Post Treatment Pain Post Treatment Pain Level: Better Post Treatment Pain Location: Knee - Right OBJECTIVE MEASURES WITH LEVEL OF FUNCTION: TREATMENT: Therapeutic Exercise: 1: SciFit bike 5 min, level 3, 1:1 throughout subjective collected 2: B heel raises in // bars 3x12 (BUE assist in // bars) 3: pro stretch 5x15 sec each side 4: mini squats in // bars 2x10 -- firm surface 5: Seated LAQ 10x10 sec hold 6: standing in // bars BUE support 2x20 Skilled Intervention: Patient was educated in proper exercise technique and purpose for exercises. Reviewed and educated patient on additions/changes for home exercise program as above (*). Skilled judgment was used in selection of appropriate interventions. Provided written instruction for home exercise program to facilitate proper performance and compliance. Correct performance of therapeutic exercises was facilitated with verbal, visual, and tactile cuing. Educated patient on rationale for performing exercises in regards to decreasing fatigue , including balance, increase ease of ADL, and ROM and function . Patient education as noted. Billing Therapeutic Exercise Treatment Minutes: 40 Skilled Treatment Time Minutes (timed and untimed codes): 40 Total Session Time (minutes): 40 Session Start Time : 1445 Session Stop Time : 1525 Kalina Hull PT documented in this encounter [facility] 08-18-2023 Note HNO ID: [id number] Author: SRAVANI GUERRA PT, DPT Service: ? Author Type: Physical Therapist Type: Progress Notes Filed: 08/18/2023 15:45 Note Text: Episode Visit Count: 5 Therapist That Will Accept/Oversee The Plan Of Care: Kalina Hull Start of Care Date: 08/01/23 Onset Date: 07/27/23 Plan of Care Certification Date: 08/01/23 Next Certification Due Date: 09/12/23 Patient Identified by Name and Date of : Yes REHABILITATION AND SPORTS THERAPY PHYSICAL THERAPY TREATMENT NOTE ASSESSMENT: Chasidy Mae tolerated the session with expected muscle soreness, and increased symptoms. He demonstrated ongoing muscle fatigue with eccentric quad control during step-down exercise. Difficulty with dynamic single leg balance. The patient will continue to benefit from ongoing skilled physical therapy to progress toward set goals. PLAN FOR NEXT VISIT: Progress balance and LE strengthening SUBJECTIVE: Patient reports he is doing well. Ongoing pain superior to patella. HEP is going well, trying ot get to them daily. Pain: Pain Pain Level: 0 Pain Location: Knee - Right Post Treatment Pain Post Treatment Pain Level: 3 Post Treatment Pain Location: Knee - Right OBJECTIVE MEASURES WITH LEVEL OF FUNCTION: LE Flexibility Flexibility: Quadriceps Flexibility R Quadriceps Flexibility: Ongoing quad tightness TREATMENT: Therapeutic Exercise: 1: SciFit bike 5 min, level 3, subjective collected. 1:1 throughout 2: step up and down on 6 inch step, no UE support 3x15 RLE TKE verse BTB 3: Lateral band walks BTB x2 minutes 4: Supine quad stretch gaenslens position 2x30 sec 5: Seated LAQ x20 Skilled Intervention: Patient was educated in proper exercise technique and purpose for exercises. Skilled judgment was used in selection of appropriate interventions. Correct performance of therapeutic exercises was facilitated with verbal and visual cuing. Neuromuscular Re-Education: 1: SL balance with KB around the world 3x30 sec each way 2: SLS firm surface 23 sec R, 30 sec 3: SLS rebounder forward ball toss 2x10, lateral ball toss x10 each side terminated due to increased pain Skilled Intervention: Skilled judgment used to assess appropriate program for balance and coordination activity. Ensured patient safety with use of counter for support Billing Therapeutic Exercise Treatment Minutes: 26 Neuromuscular Re-Education Treatment Minutes: 16 Skilled Treatment Time Minutes (timed and untimed codes): 42 Total Session Time (minutes): 42 Session Start Time : 1500 Session Stop Time : 1542 Sravani Guerra PT, DPT [facility] 08-18-2023 History of Present illness Narrative Episode Visit Count: 5 Therapist That Will Accept/Oversee The Plan Of Care: Kalina Hull Start of Care Date: 08/01/23 Onset Date: 07/27/23 Plan of Care Certification Date: 08/01/23 Next Certification Due Date: 09/12/23 Patient Identified by Name and Date of : Yes REHABILITATION AND SPORTS THERAPY PHYSICAL THERAPY TREATMENT NOTE ASSESSMENT: Chasidy Mae tolerated the session with expected muscle soreness, and increased symptoms. He demonstrated ongoing muscle fatigue with eccentric quad control during step-down exercise. Difficulty with dynamic single leg balance. The patient will continue to benefit from ongoing skilled physical therapy to progress toward set goals. PLAN FOR NEXT VISIT: Progress balance and LE strengthening SUBJECTIVE: Patient reports he is doing well. Ongoing pain superior to patella. HEP is going well, trying ot get to them daily. Pain: Pain Pain Level: 0 Pain Location: Knee - Right Post Treatment Pain Post Treatment Pain Level: 3 Post Treatment Pain Location: Knee - Right OBJECTIVE MEASURES WITH LEVEL OF FUNCTION: LE Flexibility Flexibility: Quadriceps Flexibility R Quadriceps Flexibility: Ongoing quad tightness TREATMENT: Therapeutic Exercise: 1: SciFit bike 5 min, level 3, subjective collected. 1:1 throughout 2: step up and down on 6 inch step, no UE support 3x15 RLE TKE verse BTB 3: Lateral band walks BTB x2 minutes 4: Supine quad stretch gaenslens position 2x30 sec 5: Seated LAQ x20 Skilled Intervention: Patient was educated in proper exercise technique and purpose for exercises. Skilled judgment was used in selection of appropriate interventions. Correct performance of therapeutic exercises was facilitated with verbal and visual cuing. Neuromuscular Re-Education: 1: SL balance with KB around the world 3x[address] way 2: SLS firm surface 23 sec R, 30 sec 3: SLS rebounder forward ball toss 2x10, lateral ball toss x10 each side terminated due to increased pain Skilled Intervention: Skilled judgment used to assess appropriate program for balance and coordination activity. Ensured patient safety with use of counter for support Billing Therapeutic Exercise Treatment Minutes: 26 Neuromuscular Re-Education Treatment Minutes: 16 Skilled Treatment Time Minutes (timed and untimed codes): 42 Total Session Time (minutes): 42 Session Start Time : 1500 Session Stop Time : 1542 Sravani Guerra PT, DPT documented in this encounter [facility] 08-15-2023 Note HNO ID: [id number] Author: KALINA HULL PT Service: ? Author Type: Physical Therapist Type: Progress Notes Filed: 08/15/2023 15:24 Note Text: Episode Visit Count: 4 Therapist That Will Accept/Oversee The Plan Of Care: Kalina Hull Start of Care Date: 08/01/23 Onset Date: 07/27/23 Plan of Care Certification Date: 08/01/23 Next Certification Due Date: 09/12/23 REHABILITATION AND SPORTS THERAPY PHYSICAL THERAPY TREATMENT NOTE ASSESSMENT: Chasidy Mae tolerated the session with expected muscle soreness. He demonstrated difficulty with mini squats due to minimal hip flexion and B excessive anterior translation of proximal tibia, this improved with verbal and visual cues using mirror. The patient will continue to benefit from ongoing skilled physical therapy to progress toward set goals. PLAN FOR NEXT VISIT: dynamic balance training, tandem stepping, foam curb cross over stepping SUBJECTIVE: Pt. returns to work on the 08/22/23. He has difficulty kneeling on the univolved LE. Pain: Pain Pain Location: Knee - Right Post Treatment Pain Post Treatment Pain Level: 0 Post Treatment Pain Location: Knee - Right Post Treatment Symptoms: fatigued OBJECTIVE MEASURES WITH LEVEL OF FUNCTION: TREATMENT: Therapeutic Exercise: 1: SciFit bike 5 min, level 3, subjective collected. 1:1 throughout 2: step up and down on 10 inch step, no UE support 4x12 RLE 3: *Access Code: [email or web address] URL: [email or web address] Date: 08/15/2023 Prepared by: Kalina Hull Exercises - Lateral Step Down - 2 x daily - 7 x weekly - 4 sets - 8 reps - 3 hold - Standing Terminal Knee Extension with Resistance - 2 x daily - 7 x weekly - 3 sets - 20 reps - 1 hold - Prone Knee Flexion - 2 x daily - 7 x weekly - 3 sets - 20 reps - 3 hold (4 step for eccentric heel lower at home) 4: *Green band issued Skilled Intervention: Patient was educated in proper exercise technique and purpose for exercises. Skilled judgment was used in selection of appropriate interventions. Provided written instruction for home exercise program to facilitate proper performance and compliance. Correct performance of therapeutic exercises was facilitated with verbal, visual, and tactile cuing. Educated patient on rationale for performing exercises in regards to decreasing fatigue , including balance, increase ease of ADL, and ROM and function . Patient education as noted. Neuromuscular Re-Education: 1: side to side and forwarda and back weight shifts 60 sec each no UE support on foam 2: SLS firm surface 23 sec R, 30 sec 3: SLS LLE fimr surace 30 sec + 30 sec 4: minii squats on foam, no UE support 3x12 (cues for correct technique -- pt. able to correct) Skilled Intervention: Skilled judgment used to assess appropriate program for balance and coordination activity. Education in proprioceptive/kinesthetic awareness during dynamic activities. Ensured patient safety with use of // bars within reach. Correct performance of home program was facilitated with verbal, visual, and tactile cueing. Patient education as noted. Billing Therapeutic Exercise Treatment Minutes: 25 Neuromuscular Re-Education Treatment Minutes: 15 Skilled Treatment Time Minutes (timed and untimed codes): 40 Total Session Time (minutes): 40 Session Start Time : 1439 Session Stop Time : 1519 Kalina Hull PT [facility] 08-15-2023 History of Present illness Narrative Program_ID:[id number] Access Code: [email or web address] URL: [email or web address] Date: 08-15-2023 Prepared By: Kalina Hull Program Notes Exercises - Lateral Step Down - 2 x daily - 7 x weekly - 4 sets - 8 reps - Standing Terminal Knee Extension with Resistance - 2 x daily - 7 x weekly - 3 sets - 20 reps - Prone Knee Flexion - 2 x daily - 7 x weekly - 3 sets - 20 reps Episode Visit Count: 4 Therapist That Will Accept/Oversee The Plan Of Care: Kalina Hull Start of Care Date: 08/01/23 Onset Date: 07/27/23 Plan of Care Certification Date: 08/01/23 Next Certification Due Date: 09/12/23 REHABILITATION AND SPORTS THERAPY PHYSICAL THERAPY TREATMENT NOTE ASSESSMENT: Chasidy Mae tolerated the session with expected muscle soreness. He demonstrated difficulty with mini squats due to minimal hip flexion and B excessive anterior translation of proximal tibia, this improved with verbal and visual cues using mirror. The patient will continue to benefit from ongoing skilled physical therapy to progress toward set goals. PLAN FOR NEXT VISIT: dynamic balance training, tandem stepping, foam curb cross over stepping SUBJECTIVE: Pt. returns to work on the 08/22/23. He has difficulty kneeling on the univolved LE. Pain: Pain Pain Location: Knee - Right Post Treatment Pain Post Treatment Pain Level: 0 Post Treatment Pain Location: Knee - Right Post Treatment Symptoms: fatigued OBJECTIVE MEASURES WITH LEVEL OF FUNCTION: TREATMENT: Therapeutic Exercise: 1: SciFit bike 5 min, level 3, subjective collected. 1:1 throughout 2: step up and down on 10 inch step, no UE support 4x12 RLE 3: *Access Code: [email or web address] URL: [email or web address] Date: 08/15/2023 Prepared by: Kalina Tucker Exercises - Lateral Step Down - 2 x daily - 7 x weekly - 4 sets - 8 reps - 3 hold - Standing Terminal Knee Extension with Resistance - 2 x daily - 7 x weekly - 3 sets - 20 reps - 1 hold - Prone Knee Flexion - 2 x daily - 7 x weekly - 3 sets - 20 reps - 3 hold (4 step for eccentric heel lower at home) 4: *Green band issued Skilled Intervention: Patient was educated in proper exercise technique and purpose for exercises. Skilled judgment was used in selection of appropriate interventions. Provided written instruction for home exercise program to facilitate proper performance and compliance. Correct performance of therapeutic exercises was facilitated with verbal, visual, and tactile cuing. Educated patient on rationale for performing exercises in regards to decreasing fatigue , including balance, increase ease of ADL, and ROM and function . Patient education as noted. Neuromuscular Re-Education: 1: side to side and forwarda and back weight shifts 60 sec each no UE support on foam 2: SLS firm surface 23 sec R, 30 sec 3: SLS LLE fimr surace 30 sec + 30 sec 4: minii squats on foam, no UE support 3x12 (cues for correct technique -- pt. able to correct) Skilled Intervention: Skilled judgment used to assess appropriate program for balance and coordination activity. Education in proprioceptive/kinesthetic awareness during dynamic activities. Ensured patient safety with use of // bars within reach. Correct performance of home program was facilitated with verbal, visual, and tactile cueing. Patient education as noted. Billing Therapeutic Exercise Treatment Minutes: 25 Neuromuscular Re-Education Treatment Minutes: 15 Skilled Treatment Time Minutes (timed and untimed codes): 40 Total Session Time (minutes): 40 Session Start Time : 1439 Session Stop Time : 1519 Kalina Hull PT documented in this encounter [facility] 08-12-2023 Note HNO ID: [id number] Author: JUSTO BOSTON PT Service: ? Author Type: Physical Therapist Type: Progress Notes Filed: 08/12/2023 16:21 Note Text: Episode Visit Count: 3 Therapist That Will Accept/Oversee The Plan Of Care: Kalina Hull Start of Care Date: 08/01/23 Onset Date: 07/27/23 Plan of Care Certification Date: 08/01/23 Next Certification Due Date: 09/12/23 Patient Identified by Name and Date of : Yes REHABILITATION AND SPORTS THERAPY PHYSICAL THERAPY TREATMENT NOTE ASSESSMENT: Chasidy Mae tolerated the session with fatigue and expected muscle soreness. He demonstrated difficulty with lateral step ups and step downs due to quad weakness. The patient will continue to benefit from ongoing skilled physical therapy to progress toward set goals. PLAN FOR NEXT VISIT: Continue with standing exercises. SUBJECTIVE: Pt reports that he saw Dr. Almazan yesterday and is going to RTW on 08/22/23, everything progressing as planned. He does not have to follow with his doctor . L knee and when he went to get up his R knee was a little painful. Pt states that his hips are sore from the hip exercises and feels that the exercises are helping with the steps. Pain: Pain Pain Level: (just a little) Pain Location: Knee - Right Post Treatment Pain Post Treatment Pain Location: Knee - Right Post Treatment Symptoms: Tired OBJECTIVE MEASURES WITH LEVEL OF FUNCTION: Form observed throughout session. TREATMENT: Therapeutic Exercise: 1: Step ups on 6 inch step 2x10 RLE 2: Lateral step ups on 6 unch step 2x10 RLE 3: Step downs on 4 inch step 4: Mini squats at // bars x10 Skilled Intervention: Patient was educated in proper exercise technique and purpose for exercises. Skilled judgment was used in selection of appropriate interventions. Correct performance of therapeutic exercises was facilitated with verbal and visual cuing. Billing Therapeutic Exercise Treatment Minutes: 38 Skilled Treatment Time Minutes (timed and untimed codes): 38 Total Session Time (minutes): 38 Session Start Time : 1451 Session Stop Time : 1529 YONATHAN High, PT, DPT. [facility] 08-12-2023 Note HNO ID: [id number] Author: JALEESA DICKERSON PTA Service: ? Author Type: [employer] Type: Progress Notes Filed: 08/12/2023 16:21 Note Text: Episode Visit Count: 3 Therapist That Will Accept/Oversee The Plan Of Care: Kalina Hull Start of Care Date: 08/01/23 Onset Date: 07/27/23 Plan of Care Certification Date: 08/01/23 Next Certification Due Date: 09/12/23 Patient Identified by Name and Date of : Yes REHABILITATION AND SPORTS THERAPY PHYSICAL THERAPY TREATMENT NOTE ASSESSMENT: Chasidy Mae tolerated the session with fatigue and expected muscle soreness. He demonstrated difficulty with lateral step ups and step downs due to quad weakness. The patient will continue to benefit from ongoing skilled physical therapy to progress toward set goals. PLAN FOR NEXT VISIT: Continue with standing exercises. SUBJECTIVE: Pt reports that he saw Dr. Almazan yesterday and is going to RTW on 08/22/23, everything progressing as planned. He does not have to follow with his doctor . L knee and when he went to get up his R knee was a little painful. Pt states that his hips are sore from the hip exercises and feels that the exercises are helping with the steps. Pain: Pain Pain Level: (just a little) Pain Location: Knee - Right Post Treatment Pain Post Treatment Pain Location: Knee - Right Post Treatment Symptoms: Tired OBJECTIVE MEASURES WITH LEVEL OF FUNCTION: Form observed throughout session. TREATMENT: Therapeutic Exercise: 1: Step ups on 6 inch step 2x10 RLE 2: Lateral step ups on 6 unch step 2x10 RLE 3: Step downs on 4 inch step 4: Mini squats at // bars x10 Skilled Intervention: Patient was educated in proper exercise technique and purpose for exercises. Skilled judgment was used in selection of appropriate interventions. Correct performance of therapeutic exercises was facilitated with verbal and visual cuing. Billing Therapeutic Exercise Treatment Minutes: 38 Skilled Treatment Time Minutes (timed and untimed codes): 38 Total Session Time (minutes): 38 Session Start Time : 1451 Session Stop Time : 1529 Jaleesa Dickerson PTA [facility] 08-12-2023 History of Present illness Narrative Episode Visit Count: 3 Therapist That Will Accept/Oversee The Plan Of Care: Kalina Hull Start of Care Date: 08/01/23 Onset Date: 07/27/23 Plan of Care Certification Date: 08/01/23 Next Certification Due Date: 09/12/23 Patient Identified by Name and Date of : Yes REHABILITATION AND SPORTS THERAPY PHYSICAL THERAPY TREATMENT NOTE ASSESSMENT: Chasidy Mae tolerated the session with fatigue and expected muscle soreness. He demonstrated difficulty with lateral step ups and step downs due to quad weakness. The patient will continue to benefit from ongoing skilled physical therapy to progress toward set goals. PLAN FOR NEXT VISIT: Continue with standing exercises. SUBJECTIVE: Pt reports that he saw Dr. Almazan yesterday and is going to RTW on 08/22/23, everything progressing as planned. He does not have to follow with his doctor . L knee and when he went to get up his R knee was a little painful. Pt states that his hips are sore from the hip exercises and feels that the exercises are helping with the steps. Pain: Pain Pain Level: (just a little) Pain Location: Knee - Right Post Treatment Pain Post Treatment Pain Location: Knee - Right Post Treatment Symptoms: Tired OBJECTIVE MEASURES WITH LEVEL OF FUNCTION: Form observed throughout session. TREATMENT: Therapeutic Exercise: 1: Step ups on 6 inch step 2x10 RLE 2: Lateral step ups on 6 unch step 2x10 RLE 3: Step downs on 4 inch step 4: Mini squats at // bars x10 Skilled Intervention: Patient was educated in proper exercise technique and purpose for exercises. Skilled judgment was used in selection of appropriate interventions. Correct performance of therapeutic exercises was facilitated with verbal and visual cuing. Billing Therapeutic Exercise Treatment Minutes: 38 Skilled Treatment Time Minutes (timed and untimed codes): 38 Total Session Time (minutes): 38 Session Start Time : 1451 Session Stop Time : 1529 YONATHAN High PT, DPT. Episode Visit Count: 3 Therapist That Will Accept/Oversee The Plan Of Care: Kalina Hull Start of Care Date: 08/01/23 Onset Date: 07/27/23 Plan of Care Certification Date: 08/01/23 Next Certification Due Date: 09/12/23 Patient Identified by Name and Date of : Yes REHABILITATION AND SPORTS THERAPY PHYSICAL THERAPY TREATMENT NOTE ASSESSMENT: Chasidy Mae tolerated the session with fatigue and expected muscle soreness. He demonstrated difficulty with lateral step ups and step downs due to quad weakness. The patient will continue to benefit from ongoing skilled physical therapy to progress toward set goals. PLAN FOR NEXT VISIT: Continue with standing exercises. SUBJECTIVE: Pt reports that he saw Dr. Almazan yesterday and is going to RTW on 08/22/23, everything progressing as planned. He does not have to follow with his doctor . L knee and when he went to get up his R knee was a little painful. Pt states that his hips are sore from the hip exercises and feels that the exercises are helping with the steps. Pain: Pain Pain Level: (just a little) Pain Location: Knee - Right Post Treatment Pain Post Treatment Pain Location: Knee - Right Post Treatment Symptoms: Tired OBJECTIVE MEASURES WITH LEVEL OF FUNCTION: Form observed throughout session. TREATMENT: Therapeutic Exercise: 1: Step ups on 6 inch step 2x10 RLE 2: Lateral step ups on 6 unch step 2x10 RLE 3: Step downs on 4 inch step 4: Mini squats at // bars x10 Skilled Intervention: Patient was educated in proper exercise technique and purpose for exercises. Skilled judgment was used in selection of appropriate interventions. Correct performance of therapeutic exercises was facilitated with verbal and visual cuing. Billing Therapeutic Exercise Treatment Minutes: 38 Skilled Treatment Time Minutes (timed and untimed codes): 38 Total Session Time (minutes): 38 Session Start Time : 1451 Session Stop Time : 1529 Jaleesa Dickerson PTA documented in this encounter [facility] 08-08-2023 Note HNO ID: [id number] Author: KALINA HULL, LUCAS Service: ? Author Type: Physical Therapist Type: Progress Notes Filed: 08/08/2023 14:51 Note Text: Episode Visit Count: 2 Therapist That Will Accept/Oversee The Plan Of Care: Kalina Hull Start of Care Date: 08/01/23 Onset Date: 07/27/23 Plan of Care Certification Date: 08/01/23 Next Certification Due Date: 09/12/23 Patient Identified by Name and Date of : Yes REHABILITATION AND SPORTS THERAPY PHYSICAL THERAPY TREATMENT NOTE ASSESSMENT: Chasidy Mae tolerated the session with fatigue and expected muscle soreness. He demonstrated improvements in R knee AROM flexion and extension. The patient will continue to benefit from ongoing skilled physical therapy to progress toward set goals. PLAN FOR NEXT VISIT: Asses response to hip strengthening and give for HEP SUBJECTIVE: Pt reports that he has some numbness in the middle of his R knee cap. Pt reports that he is still shaky on stairs, trying to complete reciprocally. Pain: Pain Pain Level: 0 Pain Location: Knee - Right Post Treatment Pain Post Treatment Pain Level: 0 Post Treatment Pain Location: Knee - Right Post Treatment Symptoms: My knee feels good, but mynhip is sore OBJECTIVE MEASURES WITH LEVEL OF FUNCTION: LE AROM R Knee Extension: -2 Degrees R Knee Flexion: 133 Degrees TREATMENT: Therapeutic Exercise: 1: Supine heel slides 2x10 2: LAQ 2x10 B 3: SL hip abduction 2x10 RLE 4: SL Clamshells 2x10 B 5: Standing hip extension 2x10 RLE Skilled Intervention: Patient was educated in proper exercise technique and purpose for exercises. Skilled judgment was used in selection of appropriate interventions. Correct performance of therapeutic exercises was facilitated with verbal and visual cuing. Billing Therapeutic Exercise Treatment Minutes: 40 Skilled Treatment Time Minutes (timed and untimed codes): 40 Total Session Time (minutes): 40 Session Start Time : 1231 Session Stop Time : 1311 Jaleesa Dickerson, YONATHAN Hull, PT [facility] 08-01-2023 Note HNO ID: [id number] Author: KALINA HULL PT Service: ? 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 He presents with impairments in ADL's, balance, gait, independence in exercise, joint mobility, overall function, patient reported outcome measures, range of motion, soft tissue healing, strength, symptom management, and tissue tenderness. PROMIS? (Patient-Reported Outcomes Measurement Information System) scores were reviewed and physical function domain and self efficacy domain identified as a rehabilitation concern. Prognosis for therapy is Good due to: acuteness of condition, within-session changes, current objective clinical presentation, good overall health status, positive past response to therapy, good support system/ coping skills . He will benefit from skilled therapy services to meet the goals established for this plan of care as noted below. Goals for Episode of Care: created on 08/01/23 through 09/12/23 [place] in home exercise program. Patient will decrease pain rating by 2 points to meet minimal clinical important difference for numeric pain rating scale. Patient will increase active ROM of right knee long arc quad extension to 0 degrees to allow pt to to improve postural alignment, to improve performance of ADLs, to improve gait mechanics / gait pattern , and to decrease falls risks . Patient will demonstrate increase in right quadriceps strength to 4+/5 during manual muscle testing in order to improve function for prior functional tasks and work tasks. Perform sit community distance ambulation with decreased report of symptoms/pain in 6 weeks. Normal gait. Reciprocal stair negotiation. Patient will demonstrate improved neuromuscular coordination as evidenced by improve function for prior functional tasks and work tasks. Patient Goals: return to work activities without limitation due to pain or weakness Planned Interventions, Frequency, and Duration: Current Frequency: 2x/week Duration: 6 weeks Total Number of Visits Planned: 12 Planned Treatment Interventions: Gait Training (52636), Self-correction management (68165), Therapeutic activities (00774), Manual therapy (83675), Neuromuscular re-education (05548), Therapeutic exercise (76416) PLAN FOR NEXT VISIT: hip strengthening standing and SL Patient demonstrates good understanding of plan of care and treatment. The above goals and plan of care were discussed and agreed upon by patient/family. SUBJECTIVE: for s/p R knee menisectomy 07/27/23. Pt. will return to ortho 08/11/23. 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 [employer] Occupation: return to work [employer] Intake Information: Prescription present Previous Treatment: Physical Therapy Falls Interview: No positive findings with falls interview Pain: Pain Pain Level: 0 Pain Location: Knee - Right Description: Incision Frequency: With movement Post Treatment Pain Post Treatment Pain Level: 0 Post Treatment Pain Location: Knee - Right PROMIS Scales Higher is Better 07/30/2023 05/23/2023 05/21/2023 Phys Func - Score 46 (within normal limits) - 46 (within normal limits) Phys Func - Percentile 34% - 34% Self-Eff Symptom - Score 40 (Average) 44 (Average) - Self-Eff Symptom - Percentile 16% 27% - T-scores: mean of general population = 50. 5 points is clinically meaningfully difference Percentiles provide an indication of how the patient's score ranks in relation to the general population. Higher percentile rankings indicate better function/quality of life. 50th percentile is the average of the general population and indicates half of respondents had a worse score. OBJECTIVE MEASURES WITH LEVEL OF FUNCTION: Knee Observations R Knee Presents with: Incision R Incision: healing well Knee Brace: (milana wrap and bandages) Sensation - Lower Extremity LE Light Touch Sensation: Grossly Intact LE AROM R Knee Extension: -14 Degrees (seated LAQ) R Knee Flexion: 126 Degrees (114 prior to repeated heel slides sets) LE PROM R Knee Extension: 0 Degrees (supine) Gait Gait: Independent (more content not included)... [facility] 05-30-2023 Note HNO ID: [id number] Author: KALINA HULL, PT Service: ? Author Type: Physical Therapist Type: Progress Notes Filed: 07/15/2023 10:27 Note Text: 07/15/2023 [facility] PHYSICAL THERAPY DISCONTINUANCE OF CARE Plan of Care Period: Start of Care Date: 04/27/23 Last Visit Date: 05/30/2023 Therapy Program: The following is a summary of the interventions provided for this episode of care; Therapeutic exercise, Neuromuscular re-education, and Gait training Assessment: The following is the goal status: Goals for Episode of Care: created on 04/27/23 through 06/08/23 Goals updated on 05/30/2023 through 07/04/23 [place] in home exercise program. -- MET Patient will increase active ROM of R knee extension to 0 degrees to allow pt to to improve performance of ADLs and to improve gait mechanics / gait pattern . -- PARTIALLY MET Patient will increase flexibility of bilateral hamstrings 90/90 test to <15 degrees to improve mechanics and decrease pain. -- PARTIALLY MET Normal gait. -- PARTIALLY MET Reciprocal stair negotiation. -- PROGRESSING Patient will demonstrate improved neuromuscular coordination as evidenced by improve function for prior functional tasks. -- MET Patient Goals: reduce knee pain with ADLs -- PROGRESSING Based on the most recent progress report, patient was progressing as expected toward functional goals based on home exercise program compliance and documented subjective information on progress. Reason for Discontinuation of Care: Patient has not returned to therapy or scheduled additional follow-up appointments. Kalina Hull, PT Episode Visit Count: 4 Therapist That Will Accept/Oversee The Plan Of Care: Kalina Hull Start of Care Date: 04/27/23 Onset Date: 04/27/08 Plan of Care Certification Date: 05/30/23 Next Certification Due Date: 07/04/23 [facility] PHYSICAL THERAPY PROGRESS REPORT PLAN OF CARE UPDATE: Assessment: Chasidy Mae demonstrates improvements in walking in the house, walking in the community, and stair negotiation. He has progressed toward goals. Patient continues to present with impairments in ADL's, balance, flexibility, gait, independence in exercise, joint mobility, overall function, range of motion, strength, and symptom management that interfere with lifting, bending, sitting, sleeping (walking down slopes) . Current prognosis is Fair due to: chronic nature of impairments, clinical presentation, limited tolerance to activity, occupational demands . He will benefit from continued skilled therapy services to meet the updated goals for this plan of care as noted below. Goals for Episode of Care: created on 04/27/23 through 06/08/23 Goals updated on 05/30/2023 through 07/04/23 [place] in home exercise program. -- MET Patient will increase active ROM of R knee extension to 0 degrees to allow pt to to improve performance of ADLs and to improve gait mechanics / gait pattern . -- PARTIALLY MET Patient will increase flexibility of bilateral hamstrings 90/90 test to <15 degrees to improve mechanics and decrease pain. -- PARTIALLY MET Normal gait. -- PARTIALLY MET Reciprocal stair negotiation. -- PROGRESSING Patient will demonstrate improved neuromuscular coordination as evidenced by improve function for prior functional tasks. -- MET Patient Goals: reduce knee pain with ADLs -- PROGRESSING Patient Goals: reduce knee pain with ADLs Planned Interventions, Frequency, and Duration: 1x/week, 4 weeks Total Number of Visits Planned: 4 Patient to be seen for Therapeutic exercise (47299), Neuromuscular re-education (43529), Manual therapy (36902), Therapeutic activities (23726), Self-correction management (56325), Gait Training (24529) PLAN FOR NEXT VISIT: Pt. to return to physician. Pt. hopes to get an MRI SUBJECTIVE: Pt. went to a wedding and had increased R knee pain with dancing. Today he presents with increased knee pain stating he doesn't want to do therapy today.. Patient Goals: reduce knee pain with ADLs Functional Limitations: lifting, bending, sitting, sleeping (walking down slopes) Pain: Pain Pain Level: (fluctuates) Pain Location: Knee - Right Description: Aching Post Treatment Pain Post Treatment Pain Location: Knee - Right PROMIS Scales Higher is Better 05/23/2023 05/21/2023 04/25/2023 Phys Func - Score - 46 (within normal limits) 46 (within normal limits) Phys Func - Percentile - 34 % 34 % Self-Eff Symptom - Score 44 (Average) - 41 (Average) Self-Eff Symptom - Percentile 27 % - 18 % T-scores: mean of general population = 50. 5 points is clinically meaningfully difference Percentiles provide an indication of how the patient's score ranks in relation to the general population. Higher percentile rankings indicate better function/quality of life. 50th percentile is the average of the general population and indicate (more content not included)... [facility] 05-23-2023 Note HNO ID: [id number] Author: Kalina Hull, PT Service: ? Author Type: Physical Therapist Type: Progress Notes Filed: 05/23/2023 4:42 PM Note Text: Episode Visit Count: 3 Therapist That Will Accept/Oversee The Plan Of Care: Kalina Hull Start of Care Date: 04/27/23 Onset Date: 04/27/08 Plan of Care Certification Date: 04/27/23 Next Certification Due Date: 06/01/23 [facility]ATION [facility]TS [facility] PHYSICAL THERAPY TREATMENT NOTE ASSESSMENT: Chasidy Mae tolerated the session with increased symptoms. He demonstrated difficulty with eccentric heel lowering with RLE on a 4 step due to increased numbness along the RLE. The patient will continue to benefit from ongoing skilled physical therapy to progress toward set goals. PLAN FOR NEXT VISIT: continue prone press ups SUBJECTIVE: Pt. had to miss last visit due to a bus breaking down in [place] last week. Pt. thinks that his hamstrings have tightened back up. He had pop in his knee after being up on his feet all day and his knees are not doing well today. Pt. has been told that numbness along the RLE is from the lower back but pt. disagrees. Patient Goals: reduce knee pain with ADLs Functional Limitations: stair negotiation, lifting, bending, sitting, walking in the community, walking in the house, sleeping (walking down slopes) Pain: Pain Pain Level: (does not rate) Pain Location: Knee - Right Description: Aching Post Treatment Pain Post Treatment Pain Level: 4 Post Treatment Pain Location: Knee - Right Post Treatment Symptoms: reports some reduction in pain following prone press ups OBJECTIVE MEASURES WITH LEVEL OF FUNCTION: TREATMENT: Therapeutic Exercise: 1: SciFit bike x 5 min, level 3 seat 10 1:1 throughout subjective collected. 2: good morning stretch 1x10x 5 sec hold 3: firm surface 3 way hip reaches 2x9 SLS on RLE using BUE at // bars. 4: 4 step heel lowering 3x8 each side, once daily (demo and verbal cues to flex at the hips to avoid excessive anterior knee strain -- increased numbness reported along RLE) 5: prone press ups 3x10 (no change in RLE symptoms -- Pt. reports he feels this in his low back) Skilled Intervention: Patient was educated in proper exercise technique and purpose for exercises. Skilled judgment was used in selection of appropriate interventions. Correct performance of therapeutic exercises was facilitated with verbal, visual, and tactile cuing. Educated patient on rationale for performing exercises in regards to decreasing fatigue , including balance, increase ease of ADL, and ROM and function . Patient education as noted. Neuromuscular Re-Education: 1: mini squats on foam 3x15, BUE at // bars Skilled Intervention: Skilled judgment used to assess appropriate program for balance and coordination activity. Education in proprioceptive/kinesthetic awareness during dynamic activities. Ensured patient safety with use of // bars within reach. Billing Therapeutic Exercise Treatment Minutes: 35 Neuromuscular Re-Education Treatment Minutes: 5 Skilled Treatment Time Minutes (timed and untimed codes): 40 Total Session Time (minutes): 40 Session Start Time : 1602 Session Stop Time : 1642 Kalina Hull, PT [facility] 05-23-2023 History of Present illness Narrative Episode Visit Count: 3 Therapist That Will Accept/Oversee The Plan Of Care: Kalina Hull Start of Care Date: 04/27/23 Onset Date: 04/27/08 Plan of Care Certification Date: 04/27/23 Next Certification Due Date: 06/01/23 [facility] PHYSICAL THERAPY TREATMENT NOTE ASSESSMENT: Chasidy Mae tolerated the session with increased symptoms. He demonstrated difficulty with eccentric heel lowering with RLE on a 4 step due to increased numbness along the RLE. The patient will continue to benefit from ongoing skilled physical therapy to progress toward set goals. PLAN FOR NEXT VISIT: continue prone press ups SUBJECTIVE: Pt. had to miss last visit due to a bus breaking down in [place] last week. Pt. thinks that his hamstrings have tightened back up. He had pop in his knee after being up on his feet all day and his knees are not doing well today. Pt. has been told that numbness along the RLE is from the lower back but pt. disagrees. Patient Goals: reduce knee pain with ADLs Functional Limitations: stair negotiation, lifting, bending, sitting, walking in the community, walking in the house, sleeping (walking down slopes) Pain: Pain Pain Level: (does not rate) Pain Location: Knee - Right Description: Aching Post Treatment Pain Post Treatment Pain Level: 4 Post Treatment Pain Location: Knee - Right Post Treatment Symptoms: reports some reduction in pain following prone press ups OBJECTIVE MEASURES WITH LEVEL OF FUNCTION: TREATMENT: Therapeutic Exercise: 1: SciFit bike x 5 min, level 3 seat 10 1:1 throughout subjective collected. 2: good morning stretch 1x10x 5 sec hold 3: firm surface 3 way hip reaches 2x9 SLS on RLE using BUE at // bars. 4: 4 step heel lowering 3x8 each side, once daily (demo and verbal cues to flex at the hips to avoid excessive anterior knee strain -- increased numbness reported along RLE) 5: prone press ups 3x10 (no change in RLE symptoms -- Pt. reports he feels this in his low back) Skilled Intervention: Patient was educated in proper exercise technique and purpose for exercises. Skilled judgment was used in selection of appropriate interventions. Correct performance of therapeutic exercises was facilitated with verbal, visual, and tactile cuing. Educated patient on rationale for performing exercises in regards to decreasing fatigue , including balance, increase ease of ADL, and ROM and function . Patient education as noted. Neuromuscular Re-Education: 1: mini squats on foam 3x15, BUE at // bars Skilled Intervention: Skilled judgment used to assess appropriate program for balance and coordination activity. Education in proprioceptive/kinesthetic awareness during dynamic activities. Ensured patient safety with use of // bars within reach. Billing Therapeutic Exercise Treatment Minutes: 35 Neuromuscular Re-Education Treatment Minutes: 5 Skilled Treatment Time Minutes (timed and untimed codes): 40 Total Session Time (minutes): 40 Session Start Time : 1602 Session Stop Time : 1642 Kalina Hull PT documented in this encounter [facility] 05-10-2023 Note HNO ID: [id number] Author: Kalina Hull PT Service: ? Author Type: Physical Therapist Type: Progress Notes Filed: 05/10/2023 5:05 PM Note Text: Episode Visit Count: 2 Therapist That Will Accept/Oversee The Plan Of Care: Kalina Hull Start of Care Date: 04/27/23 Onset Date: 04/27/08 Plan of Care Certification Date: 04/27/23 Next Certification Due Date: 06/01/23 [facility]ATION [facility] PHYSICAL THERAPY TREATMENT NOTE ASSESSMENT: Chasidy Mae tolerated the session with fatigue and expected muscle soreness. He demonstrated difficulty with HS mobility, demonstrating worse tightness and more limited 90/90 ROM in BLE as prior visit. The patient will continue to benefit from ongoing skilled physical therapy to progress toward set goals. PLAN FOR NEXT VISIT: assess BLE HS mobility SUBJECTIVE: HEP causes increased pain. He feels the stretch in the lower leg as well as the HS. Patient Goals: reduce knee pain with ADLs Functional Limitations: stair negotiation, lifting, bending, sitting, walking in the community, walking in the house, sleeping (walking down slopes) Pain: Pain Pain Level: 2 Pain Location: Knee - Right Description: Aching Post Treatment Pain Post Treatment Pain Level: No Change Post Treatment Pain Location: Knee - Right OBJECTIVE MEASURES WITH LEVEL OF FUNCTION: LE Flexibility Flexibility: Hamstring Flexibility R Hamstring Flexibility: -18 L Hamstring Flexibility: -26 TREATMENT: Therapeutic Exercise: 1: SciFit bike x 5 min, level 3 seat 10 1:1 throughout subjective collected. 2: hooklying Active Hamstring Stretch - 2-3 x daily - 7 x weekly - 2 sets - 5 reps - 5-10 hold 3: Active Straight Leg Raise with Quad Set - 2-3 x daily - 7 x weekly - 2 sets - 5 reps - 3 hold 4: *4 step heel lowering 3x8 each side, once daily 5: *HS stretch with strap 3x30 sec each side, 3x a day 6: *complete previous HEP if new HEP causes increased symptoms. Skilled Intervention: Patient was educated in proper exercise technique and purpose for exercises. Reviewed and educated patient on additions/changes for home exercise program as above (*). Skilled judgment was used in selection of appropriate interventions. Provided written instruction for home exercise program to facilitate proper performance and compliance. Educated patient on rationale for performing exercises in regards to decreasing fatigue , including balance, increase ease of ADL, and ROM and function . Patient education as noted. Billing Therapeutic Exercise Treatment Minutes: 40 Total Session Time (minutes): 40 Session Start Time : 1620 Session Stop Time : 1700 Kalina Hull PT [facility] 04-27-2023 Note HNO ID: [id number] Author: Kalina Hull PT Service: ? Author Type: Physical Therapist Type: Progress Notes Filed: 04/27/2023 4:25 PM Note Text: Episode Visit Count: 1 Therapist That Will Accept/Oversee The Plan Of Care: Kalina Hull Start of Care Date: 04/27/23 Onset Date: 04/27/08 Plan of Care Certification Date: 04/27/23 Next Certification Due Date: 06/01/23 Patient Identified by Name and Date of : Yes REHABILITATION AND SPORTS THERAPY PHYSICAL THERAPY EVALUATION PLAN OF CARE: Assessment: Chasidy Mae presents with diagnosis of knee internal derangement, right knee that interferes with stair negotiation, lifting, bending, sitting, walking in the community, walking in the house, sleeping (walking down slopes) . He presents with impairments in ADL's, flexibility, gait, independence in exercise, joint mobility, overall function, patient reported outcome measures, strength, symptom management, and tissue tenderness. PROMIS? (Patient-Reported Outcomes Measurement Information System) scores were reviewed and physical function domain and self efficacy domain identified as a rehabilitation concern. Prognosis for therapy is Fair due to: chronic nature of impairments, clinical presentation, limited tolerance to activity, occupational demands . He will benefit from skilled therapy services to meet the goals established for this plan of care as noted below. Goals for Episode of Care: created on 04/27/23 through 06/08/23 [place] in home exercise program. Patient will increase active ROM of R knee extension to 0 degrees to allow pt to to improve performance of ADLs and to improve gait mechanics / gait pattern . Patient will increase flexibility of bilateral hamstrings 90/90 test to <15 degrees to improve mechanics and decrease pain. Normal gait. Reciprocal stair negotiation. Patient will demonstrate improved neuromuscular coordination as evidenced by improve function for prior functional tasks. Patient Goals: reduce knee pain with ADLs Planned Interventions, Frequency, and Duration: Current Frequency: 2x/week Duration: 6 weeks Total Number of Visits Planned: 12 Planned Treatment Interventions: Therapeutic exercise (74592), Neuromuscular re-education (45087), Manual therapy (02510), Therapeutic activities (28581), Self-correction management (50025), Gait Training (43996) PLAN FOR NEXT VISIT: Assess R knee extension AROM, consider heel lowering with 4 step and UE support Patient demonstrates good understanding of plan of care and treatment. The above goals and plan of care were discussed and agreed upon by patient/family. SUBJECTIVE: for bilateral knee pain, right knee is worse than left. Pt. attributes L knee pain to compensation. He mentions that physician believes pt. has torn meniscus. He has not had an MRI. Pt. states that he must do PT prior to f/u with physician to order MRI. Pt. has been advised to stretch hamstrings. He has the most difficulty with descending steps and slopes. Feels that the knee gives out. Patient Goals: reduce knee pain with ADLs Functional Limitations: stair negotiation, lifting, bending, sitting, walking in the community, walking in the house, sleeping (walking down slopes) Prior Level of Function: Independent without limitations Relevant History Past Relevant Surgical Conditions: (pt. 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 Intake Information: Prescription present Previous Treatment: Ice , Surgery , NSAIDs Falls Interview: No positive findings with falls interview Pain: Pain Pain Level: 2 Pain Location: Knee - Right Description: Aching Post Treatment Pain Post Treatment Pain Level: No Change Post Treatment Pain Location: Knee - Right Post Treatment Symptoms: pain increases with heel strike correction of LLE PROMIS Scales Higher is Better 04/25/2023 Phys Func - Score 46 (within normal limits) Phys Func - Percentile 34 % Self-Eff Symptom - Score 41 (Average) Self-Eff Symptom - Percentile 18 % T-scores: mean of general population = 50. 5 points is clinically meaningfully difference Percentiles provide an indication of how the patient's score ranks in relation to the general population. Higher percentile rankings indicate better function/quality of life. 50th percentile is the average of the general population and indicates half of respondents had a worse score. OBJECTIVE MEASURES WITH LEVEL OF FUNCTION: Knee Observations R Knee Palpation Tenderness: Quadriceps, Patellar tendon L Knee Palpation Tenderness: Quadriceps tendon, Patellar tendon Sensation - Lower Extremity LE Light Touch Sensation: Grossly Intact LE AROM R Knee Extension: -10 Degrees R Knee Flexion: 125 Degrees L Knee Flexion: 132 Degrees LE PROM R Knee Extension: 0 Degrees L Knee Extension: 0 De (more content not included)... [facility] 04-27-2023 History of Present illness Narrative Episode Visit Count: 1 Therapist That Will Accept/Oversee The Plan Of Care: Kalina Hull Start of Care Date: 04/27/23 Onset Date: 04/27/08 Plan of Care Certification Date: 04/27/23 Next Certification Due Date: 06/01/23 Patient Identified by Name and Date of : Yes REHABILITATION AND SPORTS THERAPY PHYSICAL THERAPY EVALUATION PLAN OF CARE: Assessment: Chasidy Mae presents with diagnosis of knee internal derangement, right knee that interferes with stair negotiation, lifting, bending, sitting, walking in the community, walking in the house, sleeping (walking down slopes) . He presents with impairments in ADL's, flexibility, gait, independence in exercise, joint mobility, overall function, patient reported outcome measures, strength, symptom management, and tissue tenderness. PROMIS (Patient-Reported Outcomes Measurement Information System) scores were reviewed and physical function domain and self efficacy domain identified as a rehabilitation concern. Prognosis for therapy is Fair due to: chronic nature of impairments, clinical presentation, limited tolerance to activity, occupational demands . He will benefit from skilled therapy services to meet the goals established for this plan of care as noted below. Goals for Episode of Care: created on 04/27/23 through 06/08/23 [place] in home exercise program. Patient will increase active ROM of R knee extension to 0 degrees to allow pt to to improve performance of ADLs and to improve gait mechanics / gait pattern . Patient will increase flexibility of bilateral hamstrings 90/90 test to <15 degrees to improve mechanics and decrease pain. Normal gait. Reciprocal stair negotiation. Patient will demonstrate improved neuromuscular coordination as evidenced by improve function for prior functional tasks. Patient Goals: reduce knee pain with ADLs Planned Interventions, Frequency, and Duration: Current Frequency: 2x/week Duration: 6 weeks Total Number of Visits Planned: 12 Planned Treatment Interventions: Therapeutic exercise (88501), Neuromuscular re-education (80888), Manual therapy (83914), Therapeutic activities (35019), Self-correction management (24399), Gait Training (06570) PLAN FOR NEXT VISIT: Assess R knee extension AROM, consider heel lowering with 4 step and UE support Patient demonstrates good understanding of plan of care and treatment. The above goals and plan of care were discussed and agreed upon by patient/family. SUBJECTIVE: for bilateral knee pain, right knee is worse than left. Pt. attributes L knee pain to compensation. He mentions that physician believes pt. has torn meniscus. He has not had an MRI. Pt. states that he must do PT prior to f/u with physician to order MRI. Pt. has been advised to stretch hamstrings. He has the most difficulty with descending steps and slopes. Feels that the knee gives out. Patient Goals: reduce knee pain with ADLs Functional Limitations: stair negotiation, lifting, bending, sitting, walking in the community, walking in the house, sleeping (walking down slopes) Prior Level of Function: Independent without limitations Relevant History Past Relevant Surgical Conditions: (pt. 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 Intake Information: Prescription present Previous Treatment: Ice , Surgery , NSAIDs Falls Interview: No positive findings with falls interview Pain: Pain Pain Level: 2 Pain Location: Knee - Right Description: Aching Post Treatment Pain Post Treatment Pain Level: No Change Post Treatment Pain Location: Knee - Right Post Treatment Symptoms: pain increases with heel strike correction of LLE PROMIS Scales Higher is Better 04/25/2023 Phys Func - Score 46 (within normal limits) Phys Func - Percentile 34 % Self-Eff Symptom - Score 41 (Average) Self-Eff Symptom - Percentile 18 % T-scores: mean of general population = 50. 5 points is clinically meaningfully difference Percentiles provide an indication of how the patient's score ranks in relation to the general population. Higher percentile rankings indicate better function/quality of life. 50th percentile is the average of the general population and indicates half of respondents had a worse score. OBJECTIVE MEASURES WITH LEVEL OF FUNCTION: Knee Observations R Knee Palpation Tenderness: Quadriceps, Patellar tendon L Knee Palpation Tenderness: Quadriceps tendon, Patellar tendon Sensation - Lower Extremity LE Light Touch Sensation: Grossly Intact LE AROM R Knee Extension: -10 Degrees R Knee Flexion: 125 Degrees L Knee Flexion: 132 Degrees LE PROM R Knee Extension: 0 Degrees L Knee Extension: 0 Degrees LE Flexibility Flexibility: Hamstring Flexibility R Hamstring Flexibility: -15 L Hamstring Flexibility: -20 Functional Strength Functional Strength: Step down Step down: very poor motor control R > L Gait Weight Bearing Status: WBAT Gait: Independent Gait Distance (feet): 80 Gait Device: None Gait Deviations: Left Lower Extremity, Right Lower Extremity Gait Deviations Right Lower Extremity: Push off during terminal stance decreased, Lacks hip extension beyond mid-stance, Lacks full knee extension during terminal swing, Knee stability during stance phase decreased Gait Deviations Left Lower Extremity: Heel strike during initial stance decreased Gait Observation: can improve withcues, but increased R anterior knee pain Stairs: Modified Independent Stairs: step to pattern, leads R Education: Education Learning Preferences: Demonstration, Explanation, Performance, Printed Materials Barriers: Acuity of Illness Learning/educational needs: Plan of Care, Home exercise program, Gait Training Education Provided: Yes, see treatment interventions for education provided Education Provided To: Patient Education Mode/Type: Demonstration, Explanation/Discussion, Literature/Printed Materials, Performance Response to Education/Teach Back: States/Identifies, Return Demonstration TREATMENT: PT Treatment Interventions: Therapeutic Exercise, Gait Training Evaluation Therapeutic Exercise: 1: *Hooklying Active Hamstring Stretch - 2-3 x daily - 7 x weekly - 3 sets - 5 reps - 5-10 hold 2: *Active Straight Leg Raise with Quad Set - 2-3 x daily - 7 x weekly - 3 sets - 5 reps - 3 hold Skilled Intervention: Patient was educated in proper exercise technique and purpose for exercises. Skilled judgment was used in selection of appropriate interventions. Provided written instruction for home exercise program to facilitate proper performance and compliance. Educated patient on rationale for performing exercises in regards to decreasing fatigue , including balance, increase ease of ADL, and ROM and function . Patient education as noted. Gait Training: Distance (feet): 40' 6x Gait Cues: heel stike, LLE Assistive Device: none Assist Level: supervision, verbal cues Skilled Intervention: Patient was provided supervision during pre-gait/gait training to prevent falls and insure safety. Facilitated proper gait cycle with the use of verbal and visual cues for correction of gait deviations identified in the objective section above. Billing * Evaluation Low Complexity: 1 Unit Gait Training Treatment Minutes: 10 Skilled Treatment Time Minutes (timed and untimed codes): 15 Total Session Time (minutes): 45 Session Start Time : 1540 Session Stop Time : 1625 Kalina Hull PT documented in this encounter [facility] 09-20-2022 Note HNO ID: [id number] Author: Darren Gordon MD Service: ? Author Type: Physician Type: Progress Notes Filed: 09/20/2022 9:28 AM Note Text: Patient presents with: Head Congestion: Cough, bilateral ear pain x9 days, drainage HPI: Feeling sick for 9 days. Treated for sinusitis 4 weeks ago and improved. Positive symptoms: Cough from drainage and dry throat in the AM, Earache (L>R), Nasal Congestion, Rhinorrhea, Post nasal drainage, Sinus pressure, louder tinnitus, sweats (months) Negative symptoms: Shortness of breath, Fever, Body Aches, Headache, Chest tightness, OTC: Mucinex, Sudafed. Not taking shey or flonase. PAST MEDICAL HISTORY Diagnosis Date Back pain Diabetes mellitus (HCC) Hypertension MEDICATIONS: Current Outpatient Medications Medication Sig labetalol (TRANDATE) 100 mg tablet Take 100 mg by mouth twice daily. metFORMIN ER (GLUCOPHAGE XR) 500 mg 24 hr tablet Take 500 mg by mouth once daily. triamcinolone acetonide (NASACORT AQ) 55 mcg nasal inhaler Use 2 Sprays in the nose once daily. fexofenadine HCl (SHEY ALLERGY ORAL) Take by mouth. fluticasone (FLONASE) 50 mcg/actuation nasal spray Use 1 [place] in each nostril daily at bedtime. No current facility-administered medications for this visit. ALLERGIES: ALLERGIES No Known Allergies VITALS: BP 124/82 Pulse 72 Temp 36.2 ?C (97.1 ?F) Resp 20 Wt 104.9 kg (231 lb 3.2 oz) SpO2 98% PHYSICAL EXAM: GEN: mildly ill appearing HEENT: PERRL, EOMI, conjunctiva clear Ears: canals clear. TMs without erythema, bulge, or effusion. There are 2 tiny central spots of red on the left TM Sinuses: non-tender frontal sinus, non-tender maxillary sinuses Throat: moist mucous membranes, mild erythema, no exudate Neck: supple, no thyromegaly, no lymphadenopathy HEART: regular rate and rhythm, no murmurs LUNGS: clear to auscultation, no wheezes or crackles, no increased WOB ASSESSMENT/PLAN: 1. Acute non-recurrent sinusitis, unspecified location - ICD9: 461.9, ICD10: J01.90 (primary diagnosis) - suspect new viral URI, differential includes COVID-19 and recurrent secondary bacterial sinusitis. He is at the 10 day contagious stage for COVID. - Discussed supportive care treatment with home isolation, rest, cold medicine, and analgesia. - Red flags to seek further treatment include chest pain, shortness of breath, and lethargy; in the ER if severe. - AMOXICILLIN 875 MG-POTASSIUM CLAVULANATE 125 MG TABLET 2. Otalgia of left ear - ICD9: 388.70, ICD10: H92.02 Bilateral eustachian tube dysfunction and physical or barotrauma injury of the left TM. Follow up with ENT if tinnitus does not improve. Darren Gordon MD [facility] 09-20-2022 History of Present illness Narrative Patient presents with: Head Congestion: Cough, bilateral ear pain x9 days, drainage HPI: Feeling sick for 9 days. Treated for sinusitis 4 weeks ago and improved. Positive symptoms: Cough from drainage and dry throat in the AM, Earache (L>R), Nasal Congestion, Rhinorrhea, Post nasal drainage, Sinus pressure, louder tinnitus, sweats (months) Negative symptoms: Shortness of breath, Fever, Body Aches, Headache, Chest tightness, OTC: Mucinex, Sudafed. Not taking shey or flonase. PAST MEDICAL HISTORY Diagnosis Date Back pain Diabetes mellitus (HCC) Hypertension MEDICATIONS: Current Outpatient Medications Medication Sig labetalol (TRANDATE) 100 mg tablet Take 100 mg by mouth twice daily. metFORMIN ER (GLUCOPHAGE XR) 500 mg 24 hr tablet Take 500 mg by mouth once daily. triamcinolone acetonide (NASACORT AQ) 55 mcg nasal inhaler Use 2 Sprays in the nose once daily. fexofenadine HCl (SHEY ALLERGY ORAL) Take by mouth. fluticasone (FLONASE) 50 mcg/actuation nasal spray Use 1 [place] in each nostril daily at bedtime. No current facility-administered medications for this visit. ALLERGIES: ALLERGIES No Known Allergies VITALS: BP 124/82 Pulse 72 Temp 36.2 C (97.1 F) Resp 20 Wt 104.9 kg (231 lb 3.2 oz) SpO2 98% PHYSICAL EXAM: GEN: mildly ill appearing HEENT: PERRL, EOMI, conjunctiva clear Ears: canals clear. TMs without erythema, bulge, or effusion. There are 2 tiny central spots of red on the left TM Sinuses: non-tender frontal sinus, non-tender maxillary sinuses Throat: moist mucous membranes, mild erythema, no exudate Neck: supple, no thyromegaly, no lymphadenopathy HEART: regular rate and rhythm, no murmurs LUNGS: clear to auscultation, no wheezes or crackles, no increased WOB ASSESSMENT/PLAN: 1. Acute non-recurrent sinusitis, unspecified location - ICD9: 461.9, ICD10: J01.90 (primary diagnosis) - suspect new viral URI, differential includes COVID-19 and recurrent secondary bacterial sinusitis. He is at the 10 day contagious stage for COVID. - Discussed supportive care treatment with home isolation, rest, cold medicine, and analgesia. - Red flags to seek further treatment include chest pain, shortness of breath, and lethargy; in the ER if severe. - AMOXICILLIN 875 MG-POTASSIUM CLAVULANATE 125 MG TABLET 2. Otalgia of left ear - ICD9: 388.70, ICD10: H92.02 Bilateral eustachian tube dysfunction and physical or barotrauma injury of the left TM. Follow up with ENT if tinnitus does not improve. Darren Gordon MD documented in this encounter [facility] 09-01-2022 History of Present illness Narrative This note was created using [employer]. Subjective Chasidy Mae is a 47 year old male. 47-year-old presented with acute illness Acute onset approximately one week ago . +nasal congestion +cough This morning he endorses he coughed And felt a pop in the right rib region. +right ribs area pain 8/10 at rest, with breathing or moving 10/10 Patient has cold symptoms with nasal congestion that was draining on the back of his throat and made him cough. This morning he was coughing hard and felt like he pulled muscle in the right lower ribs area. Later this day he felt like something popped in the same area from coughing. Since then he is having pain with deep inspiration and movement. Denies chest pain, palpitations, SOB, edema Denies abdominal pian, nausea, vomiting, diarrhea Denies urinary urgency or frequency, pain or burning with urination Denies blood in stool or urine Denies SOB or dyspnea. A week ago patient reported going to the hospital with complains of chest pain, his blood glucose was elevated above 200 and his BP was 190/124. His heart enzymes, EKG was negative for heart attack and he was discharged home with Metformin and Labetalol orders. He is following up with DR. Hernández in one week. The history is provided by the patient. No spanish interpreter/translator was used. Cough This is a new problem. The current episode started more than 2 days ago. The problem occurs hourly. The problem has not changed since onset.The cough is Non-productive. There has been no fever. Associated symptoms include rhinorrhea and shortness of breath. Pertinent negatives include no chest pain, no chills, no sweats, no weight loss, no ear congestion, no ear pain, no headaches, no sore throat, no myalgias, no wheezing and no eye redness. He has tried nothing for the symptoms. He is not a smoker (quit 3-4 months ago). His past medical history does not include bronchitis, pneumonia, bronchiectasis, COPD, emphysema or asthma. PAST MEDICAL HISTORY Diagnosis Date Back pain PAST SURGICAL HISTORY Procedure Laterality Date APPENDECTOMY KNEE ARTHROSCOPY Right ALLERGIES Patient has no known allergies. MEDICATIONS triamcinolone acetonide (NASACORT AQ) 55 mcg nasal inhaler Use 2 Sprays in the nose once daily. fexofenadine HCl (SHEY ALLERGY ORAL) Take by mouth. fluticasone (FLONASE) 50 mcg/actuation nasal spray Use 1 [place] in each nostril daily at bedtime. labetalol (TRANDATE) 100 mg tablet Take 100 mg by mouth twice daily. metFORMIN ER (GLUCOPHAGE XR) 500 mg 24 hr tablet Take 500 mg by mouth once daily. cyclobenzaprine (FLEXERIL) 10 mg tablet Take 1 tablet by mouth three times daily as needed for Muscle Spasm (can make you drowsy). (Patient not taking: Reported on 07/14/2020 ) No family history on file. Social History Tobacco Use Smoking status: Every Day Smokeless tobacco: Current Review of Systems Constitutional: Positive for activity change (pain with movement or breathing). Negative for appetite change, chills, fatigue, fever and weight loss. HENT: Positive for congestion, postnasal drip and rhinorrhea. Negative for dental problem, ear discharge, ear pain, hearing loss, mouth sores, nosebleeds, sinus pressure, sinus pain, sneezing, sore throat and trouble swallowing. Eyes: Negative for pain, discharge, redness, itching and visual disturbance. Respiratory: Positive for cough and shortness of breath. Negative for chest tightness, wheezing and stridor. Right sided rib pain Cardiovascular: Negative for chest pain, palpitations and leg swelling. Gastrointestinal: Negative for abdominal distention, abdominal pain, anal bleeding, blood in stool, constipation, diarrhea, nausea and vomiting. Genitourinary: Negative for difficulty urinating, dysuria, frequency, hematuria and urgency. Musculoskeletal: Negative for arthralgias, back pain, gait problem, joint swelling, myalgias, neck pain and neck stiffness. Skin: Negative for color change, pallor, rash and wound. Allergic/Immunologic: Negative for environmental allergies, food allergies and immunocompromised state. Neurological: Negative for dizziness, weakness, light-headedness, numbness and headaches. Hematological: Negative for adenopathy. Does not bruise/bleed easily. Psychiatric/Behavioral: Negative for agitation, behavioral problems and sleep disturbance. The patient is not nervous/anxious. Objective BP 136/82 Pulse 76 Temp 36.1 C (96.9 F) Resp 16 Wt 104.3 kg (230 lb) SpO2 97% Physical Exam Vitals and nursing note reviewed. Constitutional: General: He is not in acute distress. Appearance: Normal appearance. He is obese. He is not ill-appearing, toxic-appearing or diaphoretic. HENT: Head: Normocephalic and atraumatic. Right Ear: Ear canal and external ear normal. There is no impacted cerumen. Tympanic membrane is bulging. Left Ear: Ear canal and external ear normal. There is no impacted cerumen. Tympanic membrane is bulging. Ears: Comments: Bilateral TMs bulging Nose: Congestion and rhinorrhea present. Mouth/Throat: Mouth: Mucous membranes are moist. Pharynx: Oropharynx is clear. No oropharyngeal exudate or posterior oropharyngeal erythema. Eyes: General: No scleral icterus. Right eye: No discharge. Left eye: No discharge. Conjunctiva/sclera: Conjunctivae normal. Pupils: Pupils are equal, round, and reactive to light. Neck: Vascular: No carotid bruit. Cardiovascular: Rate and Rhythm: Normal rate and regular rhythm. Pulses: Normal pulses. Heart sounds: Normal heart sounds. No murmur heard. No gallop. Pulmonary: Effort: Pulmonary effort is normal. No respiratory distress. Breath sounds: Normal breath sounds. No stridor. No wheezing, rhonchi or rales. Chest: Chest wall: Tenderness (right anterior rib. TTP with deep inspiration and movement) present. Abdominal: General: Abdomen is flat. Bowel sounds are normal. There is no distension. Palpations: Abdomen is soft. There is no mass. Tenderness: There is no abdominal tenderness. There is no guarding or rebound. Hernia: No hernia is present. Musculoskeletal: General: No swelling, tenderness, deformity or signs of injury. Cervical back: Normal range of motion and neck supple. No rigidity or tenderness. Right lower leg: No edema. Left lower leg: No edema. Comments: Right ribs area increased pain with movement Lymphadenopathy: Cervical: No cervical adenopathy. Skin: General: Skin is warm and dry. Capillary Refill: Capillary refill takes less than 2 seconds. Coloration: Skin is not jaundiced or pale. Findings: No bruising, erythema, lesion or rash. Neurological: General: No focal deficit present. Mental Status: He is alert and oriented to person, place, and time. Sensory: No sensory deficit. Motor: No weakness. Coordination: Coordination normal. Gait: Gait normal. Psychiatric: Mood and Affect: Mood normal. Behavior: Behavior normal. Assessment and Plan ASSESSMENT/PLAN: 1. Acute cough - ICD9: 786.2, ICD10: R05.1 (primary diagnosis) X one week NO red flags Denies hemoptysis. - XR RIBS/CHEST 3V AP RIB/OBLS/CXR RIGHT- negative for acute process. - will begin Tessalon Pearls PRN and Prednisone titer - Appointment with PCP scheduled on September 10, 2022 2. Rib pain on right side - ICD9: 786.50, ICD10: R07.81 Atypical chest pain, symptoms are not consistent with cardiac ischemia due to localization of the pain possible etiology include musculoskeletal, Pneumonia, and pneumothorax. - Chest X-ray today. My reading: normal, no signs of acute disease. Discussed my reading with patient. Radiologist report to follow. - XR RIBS/CHEST 3V AP RIB/OBLS/CXR RIGHT-negative 3. Rhinosinusitis - ICD9: 473.9, ICD10: J31.0, J32.9 - Will begin treatment with Augmentin 875 mg PO BID for 5 days Cielo Harris TEACHING PROVIDER (Physician/PA/SPECIAL NEEDS TUTOR) NOTE OF PERSONAL INVOLVEMENT IN CARE: I have personally seen and examined the patient and performed the medical decision-making components. I have reviewed the Advanced Practice Registered Nurse (SPECIAL NEEDS TUTOR) Student's documentation and verified the findings in the note as written. Any additions or changes are noted in bold/italics. Signature: Kalina Kidd Date: 09/01/2022 Time: 4:57 PM documented in this encounter [facility] 09-01-2022 History of Present illness Narrative Radiology Service Progress Note PATIENT NAME: Chasidy Mae DATE OF SERVICE: September 01, 2022 TIME: 3:35 PM PATIENT IDENTITY VERIFICATION COMPLETED USING TWO (2) IDENTIFIERS: Name and Date of confirmed by patient verbally. FALL SCREENING: Has the patient had 2 falls in the last year or 1 fall with injury or currently using an Ambulatory Assistive Device (Walker, Cane, Wheelchair, Crutches, etc.)? No PATIENT GENDER DATA: Male PATIENT RELEVANT IMPLANT DATA REVIEWED: Not Applicable RADIOLOGY DEPARTMENT: General X-ray: Exam(s) Completed: Rib X-Ray: Right PERIPHERAL IV DATA: Not applicable SIGNED BY: RT Hamzah(R) September 01, 2022 3:35 PM documented in this encounter [facility] 08-25-2022 Discharge summary Note Date/Time August 25, 2022 12:43pm [facility] Medical Records Department [address] [place] [address] Emergency Department Summary 08/25/22 MR#: [id number] Acct: [id number] Name: CHASIDY MAE Rep #:[id number] 1 : 1975 47 From: Keny Delarosa MD PCP: Dr. Kira Hernández, DO Status:REG ER Location: ED HPI History of Present Illness Chief Complaint: Chest Pain Detail of Chief Complaint: Midsternal chest discomfort, elevated blood pressure,foggy sensation Informant: patient Onset/Context/Timing Onset: Today (Early this morning after awakening) Activity at onset: sudden Timing: Continuous Quality: Positive for - (Discomfort) Location: Substernal Current Severity: Mild Maximum Severity: Moderate Worsened By: Nothing (Nothing specific patient believes it may be due to his elevated blood pressure.) Relieved By: Nothing Associated Symptoms: Positive for - (Previously documented); Negative for Nausea, Vomiting, Diaphoresis, Dyspnea, Cough, Fever, Lightheadedness, Acid Reflux or Palpitations Narrative Narrative: Patient is a 47-year-old male who was started on blood pressure meds. He statesthe blood pressure meds had no effect. After he was fitted and got his BiPAP machine for sleep apnea his pressure improved markedly. Patient presently complains of head discomfort, bilateral blurry vision, aching discomfort in his chest and left shoulder pain. He denies diaphoresis, nausea, vomiting. He denies dyspnea on exertion. Denies orthopnea or PND. Denies history of VTE. Denies risk factors for VTE. Denies leg pain, swelling discoloration. He denies history of hiatal hernia, reflux, peptic ulcer disease, black or maroon-colored stool. He denies intolerance to greasy or fried foods. He is status post appendectomy. He denies urologic. He denies double vision or loss of vision. [place] trouble with speech or swallowing. He denies paresthesia, anesthesia or motor weakness upper or lower extremity. He denies problems with coordination or balance. Prior Similar Symptoms: No Recent Illness/Hospitalization: No CVD Risk Factors: Negative for Hypertension, Diabetes, Hypercholesterolemia, Family History 1' </=55 or Smoking PE Risk Factors: Negative for Recent Travel/Surgery, Recent Immobilization, Prior DVT or PE, Cancer or OCP + Smoking + >/=35 TAD Risk Factors: Negative for Marfan's Syndrome, Hypertension or Family History [facility] Medical History HTN (hypertension) Sleep apnea Home Medications labetalol 100 mg tablet 100 mg PO BID #60 tabs 08/25/22 [Rx Last Taken Unknown] metformin 500 mg tablet,extended release 24 hr 500 mg PO DAILY #30 tabs 08/25/22[Rx Last Taken Unknown] Allergy/AdvReac Type Severity Reaction Status Date / Time No Known Allergies Allergy Verified 11/09/13 22:40 Social History (Updated 08/25/22 @ 12:[address] Keny Delarosa MD) Smoking Status: Former smoker substance use type: does not use ROS ROS ED Constitutional Constitutional ED: Denies chills, fever(s), subjective, sweats or weight loss Eyes Eyes: Reports blurry vision bilateral; Denies change in vision or diplopia ENT ENT ED: Denies ear pain, rhinorrhea or sore throat Cardiovascular Cardiovascular: Reports as per HPI and other Details: Additional information documented HPI narrative ; Denies orthopnea or paroxysmal nocturnal dyspnea Respiratory/Chest Respiratory/Chest: Denies cough, dyspnea, dyspnea on exertion, orthopnea, paroxysmal nocturnal dyspnea or sputum Gastrointestinal Gastrointestinal: Reports other Details: Additional information documented in the HPI narrative ; Denies abdominal pain, constipation, diarrhea, melena, nausea or vomiting Genitourinary Genitourinary ED: Denies dysuria, hematuria or urinary frequency Musculoskeletal Musculoskeletal: Denies arthralgias, back pain, myalgias or neck pain Integumentary Denies Abrasions or rash Neurologic Neurologic: Reports headache(s); Denies paresthesias or other Endocrine Endocrinology: Denies cold intolerance or heat intolerance Hematologic/Lymphatic Hematologic/Lymphatic: Denies easy bleeding or easy bruising EXAM Physical Exam Const Vital Signs: 08/25/22 12:21 08/25/22 12:28 08/25/22 12:28 Temperature 97.1 F L Temperature Source Temporal Pulse Rate 97 Respiratory Rate 16 Respiratory Effort Short of Breath Respiratory Pattern Normal Blood Pressure 194/124 H Blood Pressure Mean 147 Pulse Ox 101 Oxygen Delivery Method Room Air 08/25/22 13:26 08/25/22 13:35 08/25/22 14:07 Temperature Temperature Source Pulse Rate 96 83 Respiratory Rate 16 14 Respiratory Effort Respiratory Pattern Blood Pressure 169/114 H 157/101 H 158/109 H Blood Pressure Mean 132 119 125 Pulse Ox 96 98 Oxygen Delivery Method Room Air Positive well nourished and well developed General Appearance ED: well developed and NAD; Negative for pallor HEENT Reports TM's clear and moist mucous membranes HEENT Narrative: TMs normal. Nares patent. Uvula midline. No deviation of tongue with protrusion. No abnormality the posterior pharynx. Tympanic Membrane ED: Yes TM's clear Eyes PERRL and EOMs intact bilaterally Eyes Narrative: Cup-to-disc ratio normal. There is no papilledema. There appears to be AV nicking noted on the right side. Difficult to see the vessels on the left. General Eye ED: Negative for pale conjunctiva or scleral icterus Neck no lymphadenopathy, supple and no JVD Chest Wall inspection of chest normal and palpation of chest normal Resp normal respiratory effort and clear to auscultation bilaterally Cardio regular rate, regular rhythm, S1 normal heart sound, S2 normal heart sound and no murmurs GI normal to inspection, nondistended, normoactive bowel sounds, soft to palpation,non-tender, non-distended and no masses; Negative for hepatosplenomegaly Back/Spine no CVA tenderness and no thoracic nor lumbar tenderness Extremity normal to inspection Extremity Narrative: There is no asymmetry, swelling, discoloration, leg vein distention, palpable cords or tenderness along the distribution of the deep venous system. General Extremety ED: Negative for edema or pulses abnormal General Extremity: Negative for edema or pulses abnormal Neuro oriented x3, CN's II-XII intact bilaterally, no sensory deficits noted and gait normal Sensorium / Orientation: awake and alert Motor Exam: strength 5/5 throughout Psych mental status grossly normal Skin no rashes or lesions noted and no wounds General Skin Exam: Negative for jaundice or pallor MDM MDM MDM Narrative Medical decision making narrative: Patient has elevated blood pressure of 194/124. Chest pain may be due to elevated afterload versus cardiac ischemia versus other cause. Will obtain EKG,troponin, CBC to assess for anemia, basic metabolic panel to assess renal function. UA was obtained to assess for proteinuria or hematuria. [facility] There are no old records available for review. Patient's last hospitalization was in 2014. New Blood pressure as of 07/14/2005 is 159/109. This is equivalent to approximately 15?20% decrease from when he presented. Patient's primary care physician Dr. Hernández was paged to discuss his presentation and need for follow-up. Will recommend labetalol 100 mg twice daily for his blood pressure because of elevated blood pressure and heart rate and will discuss starting patient on metformin since his blood sugar is elevated at 220 and he has evidence of glucosuria. Lab Data Attestation: I reviewed the patient's lab results. Lab results narrative: CBC is unremarkable. Basic metabolic panel does not elevated glucose of 220. CO2 anion gap is normal. Creatinine is elevated. Prior creatinine levels have been normal. Urine is remarkable for mild proteinuria and glucose. Labs: Laboratory Results - last 24 hr 08/25/22 08/25/22 08/25/22 12:35 12:35 13:55 WBC 9.3 RBC 5.17 Hgb 16.2 Hct 47.2 MCV 91.3 MCH 31.3 MCHC 34.3 RDW Std Deviation 40.6 RDW Coeff of Art 12.1 Plt Count 240 MPV 9.4 Sodium 138 Potassium 3.7 Chloride 102 Carbon Dioxide 28.0 Anion Gap 8 BUN 19 H Creatinine 1.36 H Estim Creat Clear Calc 74.49 Est GFR (MDRD) Af Amer 72 Est GFR (MDRD) Non-Af 60 BUN/Creatinine Ratio 14.0 Glucose 220 H Calcium 9.4 Troponin I High Sens 6 Urine Color Yellow Urine Clarity Clear Urine pH 6.0 Ur Specific [place] 1.015 Urine Protein 15 H Urine Glucose (UA) 250 H Urine Ketones Negative Urine Occult Blood Negative Urine Nitrite Negative Urine Bilirubin Negative Urine Urobilinogen Normal Ur Leukocyte Esterase Negative Urine RBC 0 SEEN Urine WBC 0-5 SEEN Ur Squamous Epith Cells 0-5 SEEN Urine Bacteria 0 SEEN Urine Mucus 0 SEEN Rhythm Strip Rhythm Strip: Sinus Rhythm Rate: 87 Ectopy: None EKG Initial EKG: Attestation: I personally reviewed and interpreted this EKG as follows: Interpretation: Sinus Rhythm (Rate is 95. SD interval is 130 ms. QRS durations 96 ms. QT duration 3 and 52 ms. [place] is normal. There is 1/2 mm of J-point elevation in V2. ST segment is straightened. There is no concavity or convexly to the ST segments. This is the only lead the abnormalities noted in.) Treatment and Re-Evaluation Narrative: We will treat with labetalol for his elevated blood pressure. Most recent bloodpressure was 169/114 at 1322. He also will need referral to his primary care doctor for hyperglycemia, new onset diabetes Case was discussed with Dr. Hernández. Patient to call the office for follow-up in 1 to 2 weeks. He was prescribed labetalol 100 mg twice daily and metformin. Discharge Plan Triage Chief Complaint: Chest Pain Other Complaint: Hypertension Shortness of Breath ED Provider: Keny Delarosa Dx/Rx/DC Orders Clinical Impression: Hypertension, Elevated serum creatinine, Isolated proteinuria, New onset type 2diabetes mellitus Instructions: ED Hypertension New Begin Treatment, ED Hyperglycemia New Susp Diabetes Prescriptions: New labetalol 100 mg tablet 100 mg PO BID Qty: 60 0RF metformin 500 mg tablet extended release 24 hr 500 mg PO DAILY Qty: 30 0RF Primary Care Provider: Kira Hernández Referrals: Trish Koenig DO [Med Staff - Active Staff] - 1-2 Weeks Disposition Disposition: Home, Self Care What to do if you have Problems For any increased pain, shortness of breath, bleeding, nausea or vomiting, chestpain, or any unexpected problems, contact your Primary Care Provider. Call [employer] [employer] [facility] ([phone]) or report to the closest Emergency Room. Call 911 if necessary. 08/25/22 1434 <Electronically signed by Keny Delarosa MD> Cosigner Signature (if applicable): CC: Dr. Kira Hernández, DO ~ Signed [facility] Work Phone: 1(187) 882-499106-20-2022 History of Present illness Narrative* Katya Barragan APRN.ADMINISTRATIVE COORDINATOR - 12/28/2021 12:29 PM EDT CC: Patient presents with: Nasal Congestion: drainage, cough and sore throat x 2 weeks HPI: Chasidy Mae is a 46 year old male who presents to the office with complaint of cough, nonproductive, sore throat and sinus symptoms for 2 weeks. Symptoms are worsening Associated symptoms includes sore throat, facial pain/pressure and cough. Denies body aches, fever, nausea, vomiting and diarrhea. Treatments tried include nothing so far. with no relief of symptoms. Sick contacts: unknown. History of asthma, frequent episodes of bronchitis, chronic bronchitis, bronchiectasis or COPD: No Smoker: No Seasonal/environmental allergies: No The ROS is otherwise negative. The patient's pmh, medications, allergies, and past visits are reviewed. PHYSICAL EXAM: BP 128/80 Pulse 82 Temp 36.3 C (97.3 F) Resp 16 Wt 100.2 kg (221 lb) SpO2 97% General appearance: alert, cooperative, pleasant, in no acute distress Head: Normocephalic Eyes: EOM's intact, conjunctiva pink and moist, no icterus, sclera white, non-injected Ears: Right ear: External ear/canal- Normal, TM - clear with good landmarks. Left ear: External ear/canal- Normal, TM - clear with good landmarks Oropharynx:moist without lesions, No erythema, exudates or tonsillar hypertrophy. Heart: Negative. RRR without obvious murmur, gallop, or rubs. No ectopy. Lungs: clear to auscultation, without rales or wheeze, good air exchange PAST MEDICAL HISTORY Diagnosis Date Back pain PAST SURGICAL HISTORY Procedure Laterality Date APPENDECTOMY KNEE ARTHROSCOPY Right ALLERGIES Patient has no known allergies. MEDICATIONS triamcinolone acetonide (NASACORT) 55 mcg nasal inhaler Use 2 Sprays in the nose once daily. fexofenadine HCl (SHEY ALLERGY ORAL) Take by mouth. fluticasone (FLONASE) 50 mcg/actuation nasal spray Use 1 [place] in each nostril daily at bedtime. amoxicillin-clavulanic acid (AUGMENTIN) 875-125 mg per tablet Take 1 tablet by mouth twice daily for 5 days. predniSONE (DELTASONE) 20 mg tablet Take 2 tablets by mouth once daily for 5 days. cyclobenzaprine (FLEXERIL) 10 mg tablet Take 1 tablet by mouth three times daily as needed for Muscle Spasm (can make you drowsy). No family history on file. Social History Tobacco Use Smoking status: Current Every Day Smoker Smokeless tobacco: Current User Substance Use Topics Alcohol use: Not on file Drug use: Not on file ASSESSMENT/PLAN: 1. Cough - ICD9: 786.2, ICD10: R05.9 - COVID WITH FLUA+B, ROUTINE Augmentin bid for 5 days. prednisone 40 mg daily for 5 days. Prescription instructions reviewed with patient as applicable. Potential red flag symptoms discussed with the patient. Reviewed appropriate action plan to take if red flag symptoms occur. Patient agreeable to treatment plan. Katya Barragan APRN.ANTOINE [facility] Diagnosis Cough- Primary [facility] noteNo assessment information availableWPremier Health [facility] Work Phone: Evaluation note* Diagnosis Acute cough- Primary Rib pain on right side Chest pain, unspecified Rhinosinusitis Unspecified sinusitis (chronic) [facility]* Diagnosis Acute non-recurrent sinusitis, unspecified location- Primary Otalgia of left ear Otalgia, unspecified [facility]* Diagnosis Knee internal derangement, right- Primary [facility]* Diagnosis Knee internal derangement, right- Primary [facility]* Diagnosis 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- Primary Other and unspecified derangement of medial meniscus [facility]* Diagnosis 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- Primary Other and unspecified derangement of medial meniscus [facility] Diagnosis 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- Primary Other and unspecified derangement of medial meniscus [facility]* Diagnosis 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- Primary Other and unspecified derangement of medial meniscus documented [facility] this encounter [facility]* Diagnosis 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- Primary Other and unspecified derangement of medial meniscus documented [facility] this encounter [facility]* Diagnosis 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- Primary Other and unspecified derangement of medial meniscus [facility] this encounter [facility]* Diagnosis Acute cough Rib pain on right side Chest pain, unspecified documented in this encounter [facility] for referral (narrative)* Diagnostic Procedure Only (Urgent) - Closed Specialty Diagnoses / Procedures Referred By Contac t Referred To Contact XR IMAGING Diagnoses Acute cough Rib pain on right side Procedures XR RIBS/CHEST 3V AP RIB/OBLS/CXR RIGHT RADEX RIBS UNI W/POSTEROANT CH MINIMUM 3 VIEWS Kalina Kidd APRN.ADMINISTRATIVE COORDINATOR [address] [place] [address] Xr Imaging Referral ID Status Reason Start Date Expiration Date V isits Requested Visits Authorized [id number] Closed Auto-Generate d Referral 09/01/2022 10/01/2023 1 1 [facility] for referral (narrative)* Diagnostic Procedure Only (Urgent) - Closed Specialty Diagnoses / Procedures Referred By Contac t Referred To Contact XR IMAGING Diagnoses Acute cough Rib pain on right side Procedures XR RIBS/CHEST 3V AP RIB/OBLS/CXR RIGHT RADEX RIBS UNI W/POSTEROANT CH MINIMUM 3 VIEWS Kalina Kidd APRN.ADMINISTRATIVE COORDINATOR [address] [place] [address] [place] [address] Referral ID Status Reason Start Date Expiration Date V isits Requested Visits Authorized [id number] Closed Auto-Generate d Referral 09/01/2022 10/01/2023 1 1 [facility]No reason for referral information availableWPremier Health [facility] Work Phone: Reason for visit Narrative* Diagnostic Procedure Only (Urgent) - Closed Specialty Diagnoses / Procedures Referred By Contac t Referred To Contact XR IMAGING Diagnoses Acute cough Rib pain on right side Procedures XR RIBS/CHEST 3V AP RIB/OBLS/CXR RIGHT RADEX RIBS UNI W/POSTEROANT CH MINIMUM 3 VIEWS Kalina Kidd, [place] [address] [facility] [place] [address] [place] [address] Referral ID Status Reason Start Date Expiration Date V isits Requested Visits Authorized [id number] Closed Auto-Generate d Referral 09/01/2022 10/01/2023 1 1 [facility] Concerns Infection Onset Date Last Indicated Resolved Time COVID-19 Rule-Out 12/28/2021 12/28/2021 Family History No Family History Records Found Relationship Condition Age at Onset Recorded Date/T angelo Unknown Family History?Diabetes Unknown November 12, 2013 10:50am Relationship Condition Age at Onset Recorded Date/T angelo Unknown Family History?Diabetes Unknown November 12, 2013 9:50am Relationship Condition Age at Onset Recorded Date/T angelo grandmother Malignant neoplasm of colon Unknown mother Hypertension Unknown Advance Directives No Advanced Directives Records Found Advance Directive Response Recorded Date/ Time Advance Directives No November 10, 2013 3:30am Living Will No November 10, 2013 3: 30am Power of Jd Edwards Developer No November 10, 2013 3:30am Advance Directive Response Recorded Date/ Time Advance Directives No November 10, 2013 2:30am Living Will No November 10, 2013 2: 30am Power of Jd Edwards Developer No November 10, 2013 2:30am Advance Directive Response Recorded Date/ Time Advance Directives No November 10, 2013 2:30am Living Will No August 25, 2 023 12:28pm Power of Jd Edwards Developer No August 25, 2022 12:28pm Advance Directive Response Recorded Date/ Time Advance Directives No November 10, 2013 3:30am Living Will No August 25, 2 023 1:28pm Power of Jd Edwards Developer No August 25, 2022 1:28pm Advance Directive Response Recorded Date/ Time Advance Directives No November 10, 2013 3:30am Chief Complaint and Reason for Visit Chief Complaint Hypersomnia, unspeci fied Chief Complaint Hypersomnia, unspeci fied SEVERE ALYSSA Chief Complaint Hypersomnia, unspeci fied SEVERE ALYSSA hypertension Chief Complaint SEVERE ALYSSA hypertension Chief Complaint hypertension Chief Complaint BILAT AXILLA FULLNES S AND PAIN Summary Purpose Additional Source Comments Source Comments (unrecognize d section and content) In the event this informatio n is protected by the Federal Confidentiality of Alcohol and Drug Abuse Patient Records regulations: The Federal rules restrict any use of the information to criminally investigate or prosecute any alcohol or drug abuse patient.[facility] Hospital[facility] the event this information is protected by the Federal Confidentiality of Alcohol and Drug Abuse Patient Records regulations: The Federal rules restrict any use of the information to criminally investigate or prosecute any alcohol or drug abuse patient.[facility] HospitalIn the event this information is protected by the Federal Confidentiality of Alcohol and Drug Abuse Patient Records regulations: The Federal rules restrict any use of the information to criminally investigate or prosecute any alcohol or drug abuse patient.[facility] HospitalIn the event this information is protected by the Federal Confidentiality of Alcohol and Drug Abuse Patient Records regulations: The Federal rules restrict any use of the information to criminally investigate or prosecute any alcohol or drug abuse patient.[facility] HospitalIn the event this information is protected by the Federal Confidentiality of Alcohol and Drug Abuse Patient Records regulations: The Federal rules restrict any use of the information to criminally investigate or prosecute any alcohol or drug abuse patient.[facility] HospitalIn the event this information is protected by the Federal Confidentiality of Alcohol and Drug Abuse Patient Records regulations: The Federal rules restrict any use of the information to criminally investigate or prosecute any alcohol or drug abuse patient.[facility] HospitalIn the event this information is protected by the Federal Confidentiality of Alcohol and Drug Abuse Patient Records regulations: The Federal rules restrict any use of the information to criminally investigate or prosecute any alcohol or drug abuse patient.[facility] HospitalIn the event this information is protected by the Federal Confidentiality of Alcohol and Drug Abuse Patient Records regulations: The Federal rules restrict any use of the information to criminally investigate or prosecute any alcohol or drug abuse patient.[facility] HospitalIn the event this information is protected by the Federal Confidentiality of Alcohol and Drug Abuse Patient Records regulations: The Federal rules restrict any use of the information to criminally investigate or prosecute any alcohol or drug abuse patient.[facility] HospitalIn the event this information is protected by the Federal Confidentiality of Alcohol and Drug Abuse Patient Records regulations: The Federal rules restrict any use of the information to criminally investigate or prosecute any alcohol or drug abuse patient.[facility] HospitalIn the event this information is protected by the Federal Confidentiality of Alcohol and Drug Abuse Patient Records regulations: The Federal rules restrict any use of the information to criminally investigate or prosecute any alcohol or drug abuse patient.[facility] HospitalIn the event this information is protected by the Federal Confidentiality of Alcohol and Drug Abuse Patient Records regulations: The Federal rules restrict any use of the information to criminally investigate or prosecute any alcohol or drug abuse patient.[facility] HospitalIn the event this information is protected by the Federal Confidentiality of Alcohol and Drug Abuse Patient Records regulations: The Federal rules restrict any use of the information to criminally investigate or prosecute any alcohol or drug abuse patient[facility] Reason for Visit (unrecogniz ed section and content) Reason Comments PT Discharge Specialty Diagnoses / Procedures Referred By Contac t Referred To Contact Physical Therapy / PHYSICAL THERAPY Diagnoses Degenerative tear of Medial Meniscs of right knee Procedures NEW RS PT ORTH [facility] Ras Almazan MD [address] [place] [address] Kalina Hull, PT Referral ID Status Reason Start Date Expiration Date V isits Requested Visits Authorized [id number] Authorized 07/11/2023 07/10/2024 25 25 Reason Comments Nasal Congestion drainage, cough and sore throat x 2 weeks Reason Comments Cough nasal drainage x 1 w [place], right rib pain x this am Reason Comments Head Congestion Cough, bilateral ear pain x9 days, drainage Reason Comments PT Eval Specialty Diagnoses / Procedures Referred By Contac t Referred To Contact Physical Therapy / PHYSICAL THERAPY Diagnoses knee internal derangement rt M23.91 Procedures NEW RS PT ORTH Ras Miller [address] [place] [address] Kalina Hull PT Referral ID Status Reason Start Date Expiration Date V isits Requested Visits Authorized [id number] Authorized 02/08/2023 07/10/2023 99 99 Reason Comments Physical Therapy Specialty Diagnoses / Procedures Referred By Contac t Referred To Contact Physical Therapy / PHYSICAL THERAPY Diagnoses knee internal derangement rt M23.91 Procedures NEW RS PT ORTH Ras Miller MD [address] [place] [address] Kalina Hull PT Goals (unrecognized section and content) Goals may be documented in a n alternate sectionGoals may be documented in an alternate sectionGoals may be documented in an alternate sectionGoals may be documented in an alternate sectionGoals may be documented in an alternate sectionGoals may be documented in an alternate sectionGoals may be documented in an alternate sectionGoals may be documented in an alternate sectionGoals may be documented in an alternate sectionGoals may be documented in an alternate section Care Teams (unrecognized sec tion and content) Team Status: Active Member Role Status Dates Yuriy Downey MD Family Provider Active Dr. Kira Hernández DO Primary Care Provider Active Team Status: Inactive Member Role Status Dates Dr. Trish Koenig DO Primary Care Provider Active Dr. Kira Hernández DO Attending Provider, Referring Loulou mata Active Team Status: Inactive Member Role Status Dates Dr. Trish Koenig DO Primary Care Provider Active Dr. Kira Hernández DO Attending Provider Active Team Status: Inactive Member Role Status Dates Dr. Keny Delarosa MD Emergency Provider Active Dr. 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 Keny Delarosa MD Attending Provider, Emergency Provi petra Active Dr. Kira Hernández DO Primary Care Provider Active Team Status: Inactive Member Role Status Dates Dr. 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 Relationship Specialty Start Date End Date Kira Hernández DO [address] [place] [address] PCP - General Family Medicine 09/01/22 Lighting Engineering Technician Relationship Specialty Start Date End Date Kira Hernández DO [address] [place] [address] PCP - General Family Medicine 09/01/22 Lighting Engineering Technician Relationship Specialty Start Date End Date Kira Hernández DO [address] [place] [address] PCP - General Family Medicine 09/01/22 Lighting Engineering Technician Relationship Specialty Start Date End Date Kira Hernández DO [address] [place] [address] PCP - General Family Medicine 09/01/22 Lighting Engineering Technician Relationship Specialty Start Date End Date Kira Hernández DO [address] [place] [address] PCP - General Family Medicine 09/01/22 Lighting Engineering Technician Relationship Specialty Start Date End Date Kira Hernández DO [address] [place] [address] PCP - General Family Medicine 09/01/22 Lighting Engineering Technician Relationship Specialty Start Date End Date Kira Hernández DO [address] [place] [address] PCP - General Family Medicine 09/01/22 Team Status: Inactive Member Role Status Dates Dr. Kira Hernández DO Primary Care Provider Active Start: December 19, 2024 End: December 19, 2024 Dr. Kira Hernández DO Attending Provider Active Start: December 19, 2024 End: December 19, 2024 Team Status: Active Member Role Status Dates Dr. Kira Hernández DO Primary Care Provider Active Start: December 20, 2024 Dr. Kira Hernández DO Attending Provider Active Start: December 20, 2024 Team Status: Inactive Member Role Status Dates Dr. Kira Hernández DO Primary Care Provider Active Start: December 20, 2024 End: December 20, 2024 Dr. Kira Hernández DO Attending Provider Active Start: December 20, 2024 End: December 20, 2024 (unrecognized sect ion and content) No Status Records FoundNo Status Records Found INFORMATION SOURCE (unrecogn ized section and content) DATE CREATED AUTHOR 09/08/2023 [facility] DATE CREATED AUTHOR AUTHOR'S JONATHAN HEAD 02/21/2025 [facility] FOR RECORDS PERTAINING TO PATIENTS WHO ARE OR HAVE BEEN ENROLLED IN A CHEMICAL DEPENDENCY/SUBSTANCEABUSE PROGRAM, SOME INFORMATION MAY BE OMITTED. This clinical summary was aggregated from multiple sources. Caution should be exercised in using it in the provision of clinical care. This summary normalizes information from multiple sources, and as a consequence, information in this document may materially change the coding, format and clinical context of patient data. In addition, data may be omitted in some cases. CLINICAL DECISIONS SHOULD BE BASED ON THE PRIMARY CLINICAL RECORDS. [facility]. provides no warranty or guarantee of the accuracy or completeness of information in this document.
--- NOTE | 2025-02-22 07:34 | PRE.ANES_ITS ---
ASA Classification* ASA Classification ASA Classification: 2 Assessment & Plan Anesthesia* Anesthesia Assessment Anesthesia Assessment: Discussed sedation and/or anesthesia options, risks, benefits, and alternatives with patient/parents/legal guardian/POA. Questions invited. The patient/parents/legal guardian/POA seems to understand and agrees to proceed with anesthesia plan. Reviewed the physical assessment, medical history, allergy history and patient home medications list prior to surgery/procedure/anesthetic and documented any changes. Performed airway and anesthesia risk assessments. Anesthesia Type Anesthesia Type: MAC History Source History Obtained from:: Patient and Chart Anesthesia Focused Assessment* Oxygen Delivery Method: Room Air Airway Assessment Mouth opens: >3 cm Mallampati Score: I Teeth Condition: Intact Neck Range of motion (ROM): Full ROM Labs Anesthesia Preop lab: CBC WBC 6.5 K/mm3 (4.4-11.0) 12/19/24 15:46 12/19/24 RBC 4.75 M/mm3 (4.6-6.2) 12/19/24 15:46 12/19/24 Hgb 15.0 g/dL (13.0-16.5) 12/19/24 15:46 12/19/24 Hct 42.9 % (40-54) 12/19/24 15:46 12/19/24 Plt Count 214 K/mm3 (150-450) 12/19/24 15:46 12/19/24 CHEMISTRY Potassium 3.8 mmol/L (3.3-5.1) 12/19/24 15:46 12/19/24 Sodium 136 mmol/L (133-145) 12/19/24 15:46 12/19/24 BUN 16 mg/dL (4-19) 12/19/24 15:46 12/19/24 Creatinine 1.06 mg/dL (0.70-1.20) 12/19/24 15:46 12/19/24 Glucose 249 mg/dL (70-99) H 12/19/24 15:46 12/19/24 TSH 1.32 uIU/mL (0.358-3.74) 11/09/22 14:34 COAG Pre-Assessment Diagnosis/Proposed Procedure Planned Operative Procedure(s): CSCOPE Anesthesia History 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 When Was Last Pacemaker Check QUESTION #4 FULL TEXT: You/Your Family Experience fever (hyperthermia) with Anesthesia Last Oral Intake Last Oral intake: Last Oral Intake NPO since Meds taken in AM with sips of water? Meds patient instructed to take am of surgery PONV PONV - marketing communications associate: PONV - marketing communications associate Female No 02/21/25 11:02 HX of Motion Sickness No 02/21/25 11:02 HX of N/V After Surgery No 02/21/25 11:02 Non-Smoker Yes 02/21/25 11:02 Duration of Surgery greater No 02/21/25 11:02 than 60 minutes Number of Risk Factors 1 02/21/25 11:02 PONV Score Low Risk 02/21/25 11:02 Height & Weight Height & Weight: Anesthesia: Height & Weight Height 6 ft 01/03/23 14:33 Respiratory Assessment Respiratory Assessment - marketing communications associate: Respiratory Tract Infection Hx - marketing communications associate Hx Respiratory Tract Infection No 02/21/25 11:02 STOP Sleep Apnea STOP Sleep Apnea - marketing communications associate: STOP Sleep Apnea - marketing communications associate Hx Hypertension Yes: CONTROLLED WITH MED 02/21/25 11:02 Hx Sleep Apnea Yes 02/21/25 11:02 CPAP No: NONCOMPLIANT 02/21/25 11:02 BIPAP No 02/21/25 11:02 Do you snore loudly (louder than talking or can be heard Do you often feel tired/ fatigued/ sleepy during daytime? Has anyone observed you stop breathing during sleep? STOP Results Positive 02/21/25 11:02 QUESTION #5 FULL TEXT : Do you snore loudly (louder than talking or can be heard through closed doors)? 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 Specify any problems Hx of Preganancy in last 3 N/A 02/21/25 11:02 Months Nurse Filling Out Transfusion NBUCHER 02/21/25 11:02 & Questions: Date: 02/21/25 02/21/25 11:02 Time: 11:03 02/21/25 11:02 Patient unable to answer at this time (ie. confused, unrespo /Reproduction History /Reproductive History - marketing communications associate: /Reproductive Hx- marketing communications associate Hx Now Gestational Age (in weeks): EDC: Hx Hx Para Hx Section SAB Active Medications Active Medications: Current Medications Generic Name Dose Route Start Last Admin Trade Name Freq PRN Reason Stop Dose Admin Lactated Ringer's 1,000 mls @ 15 mls/hr 02/22/25 07:00 IV .Q48H SNEHAL PFSH Medical History (Updated 02/21/25 @ 11:06 by Annemarie Mcclure) Wears contact lenses Wears glasses CPAP (continuous positive airway pressure) dependence Former smoker Allergies High cholesterol Diabetes HTN (hypertension) Sleep apnea Home Medications ?Medication ?Instructions ?Recorded ?Last Taken ?Type metformin 500 mg tablet,extended 500 mg PO DAILY #30 t abs 08/25/22 02/20/25 Rx release 24 hr labetalol 200 mg tablet 200 mg PO BID 01/03/2302/22 History rosuvastatin 10 mg tablet 10 mg PO DAILY 01/03/2302/08 History glipizide 5 mg tablet, extended 5 mg PO DAILY 02/22/25 02/20/25 History release 24 hr Allergy/AdvReac Type Severity Reaction Status Date / Time No Known Allergies Allergy Verified 02/22/25 07:03 Family History (Updated 01/03/23 @ 14:33 by Sunshine Valentin) Grandmother Colon cancer Mother Hypertension Surgical History (Updated 02/21/25 @ 11:06 by Annemarie Mcclure) S/P appendectomy S/P knee surgery Social History (Updated 08/25/22 @ 12:[address] Keny Delarosa MD) Smoking Status: Former smoker substance use type: does not use Review of Systems (Anesthesia) ROS Narrative System reviewed and no additional complaints, except as documented.
[2025-02-22] MEDS: Lactated Ringers 1,000 ML 15 ML IV (07:38)
--- NOTE | 2025-02-22 07:54 | H&P.OPEN ---
HPI - General HPI Narrative CHASIDY MAE, is a 50 M who presents for screening colonoscopy. He has never had a colonoscopy in the past. He denies abdominal pain or blood in the stool. He does have family history of polyps in his daughter. [facility] Medical History (Updated 02/22/25 @ 07:[address] Sascha Guzman MD) Wears contact lenses Wears glasses CPAP (continuous positive airway pressure) dependence Former smoker Allergies High cholesterol Diabetes HTN (hypertension) Sleep apnea Home Medications ?Medication ?Instructions ?Recorded ?Last Taken ?Type metformin 500 mg tablet,extended 500 mg PO DAILY #30 tabs 08/25/22 02/20/25 Rx release 24 hr labetalol 200 mg tablet 200 mg PO BID 01/03/23 02/22/25 History rosuvastatin 10 mg tablet 10 mg PO DAILY 01/03/23 02/21/25 History glipizide 5 mg tablet, extended 5 mg PO DAILY 02/22/25 02/20/25 History release 24 hr Allergy/AdvReac Type Severity Reaction Status Date / Time No Known Allergies Allergy Verified 02/22/25 07:03 Family History (Updated 01/03/23 @ 14:33 by Sunshine Valentin) Grandmother Colon cancer Mother Hypertension Surgical History (Updated 02/21/25 @ 11:06 by Annemarie Mcclure) S/P appendectomy S/P knee surgery Social History (Updated 08/25/22 @ 12:[address] Keny Delarosa MD) Smoking Status: Former smoker substance use type: does not use Past Medical/Surgical History Planned Operation Planned Operative Procedure(s): CSCOPE Previous Hospitalizations/Surgeries HX Hospitalizations: No HX of Surgeries: APPY. LAP KNEE Any Problems With Anesthesia: No You/Your Family Experience Fever (Hyperthermia) With Anes: No Cholinesterase deficiency: No Cardiovascular Hx Chest Pain within Last 2 months: No Hx of Irregular Heartbeat and/or Afib: No Hx Heart Attack: No Hx Congestive Heart Failure: No Hx Rheumatic Fever: No Hx Hypertension: Yes (CONTROLLED WITH MED) Hx Internal Defibrillator: No Hx Pacemaker: No Hx Cardiac Catheterization: No Hx Cardiac Surgery/Stents/Etc.: No Hx Stress Test: No Hx Pain in Legs when Walking/Leg Cramps: No Respiratory Chronic Cough: No HX of Shortness of Breath: No Hoarseness: Yes Hx Chronic Obstructive Pulmonary Disease (COPD): No Hx Asthma: No Hx Emphysema: No Hx Sleep Apnea: Yes CPAP: No (NONCOMPLIANT) BIPAP: No Hx Respiratory Tract Infection/Cold (presently): No Result (for STOP score): Positive Hx Smoking: Yes Smoking Status: Former smoker Gastrointestinal Controlled With Meds: No Hx Gastrointestinal Disorders: No Hx Gastrointestinal Bleed: No Hx Ulcer: No Hx Unplanned Weight Loss of 20#: No HX Unplanned Weight Gain of 20#: No Neurological Hx Seizures: No HX Syncope/Blackout Spells/Unconsciousness: No Hx Transient Ischemic Attacks (TIA): No Hx Multiple Sclerosis: No Hx Parkinson's Disease: No Hx Head/Neck Injury: No Hx Headaches: No Hx Back Injury/Pain: Yes Does patient have nerve stimulator: No Blood Disorder Hx Deep Vein Thrombosis: No Hx High Cholesterol: No Hx Anemia: No Hx Blood Disorders: No Genitourinary Hx Renal Disease: No Hx Dialysis: No Musculoskeletal Hx Arthritis: No Hx Rheumatoid Arthritis: No Hx Gout: No Endocrine Hx Diabetes: No Insulin: No Thyroid Disease: No Hx Steroid Therapy: No Psycho/Social Hx Substance Use: No Hx Alcohol Use: Yes Hx Anxiety: No Hx Depression: No Mental Illness: No Hx Dementia: No Miscellaneous Hx Cancer: No Recent Exposure to Contagious Disease: No Hx of C-Diff: No Allergies No Known Allergies Allergy (Verified 02/22/25 07:03) Maternal: Family History (Updated 01/03/23 @ 14:33 by Sunshine Valentin) Grandmother Colon cancer Mother Hypertension Diabetes Discharge Is Pt Admitted From a Alf, or a Residential: No After D/C, Where Do you Plan to Go: Return Home Vital Signs Vital Signs Vital Signs: 02/22/25 07:08 02/22/25 07:08 02/22/25 07:36 Temperature 97.8 F Temperature Source Temporal Pulse Rate 65 Respiratory Rate 18 Respiratory Pattern Normal Blood Pressure 133/92 H Blood Pressure Mean 105 Blood Pressure Source Monitor Blood Pressure Position Semi-Fowlers Blood Pressure Location Right Arm Pulse Ox 97 Oxygen Delivery Method Room Air Room Air Weight Weight: 226 lb 3.108 oz Body Mass Index (BMI) 30.7 Physical Exam Const alert and oriented x3 HEENT normocephalic Eyes PERRL Resp normal respiratory effort and normal air movement Cardio regular rate and regular rhythm GI soft to palpation, non-tender and non-distended Extremity normal to inspection Assessment & Plan Assessment/Plan (1) Screen for colon cancer: PLAN: I explained endoscopy in detail to the patient. I explained the risks including but not limited to stroke or heart attack with anesthesia, perforation of the GI tract, bleeding, infection. I explained that any of these could necessitate further emergency surgery. The patient understands and all questions were answered sufficiently. The patient wishes to proceed with procedure. Sascha Guzman MD Pager: [facility] [address] [place] [address] [address] [place] [address] Office: Surgery Risks - Colonoscopy Risks Include but are not Limited To: Risks include but are not limited to: Bleeding, perforation requiring further surgery, inability to complete colonoscopy requiring barium enema.
--- NOTE | 2025-02-22 08:00 | COLBX_PTH ---
PATIENT: CHASIDY MAE LOC: EN U#:[id number] AGE/SX: 50/M ROOM: RE02/22/[address]: Dr. Sascha Guzman MD : 1975 BED: DIS: 02/22/2025 SPEC #: [id number] RECD: 02/22/25 11:42 STATUS: RONNIE REDunia #: [id number] JAYANT: 02/22/25 08:[address]: Sascha Guzman DEPT: SURGICAL PATHOLOGY RECD BY: Geovany Griffin ENTERED: 02/22/25 14:00 SP TYPE: COLON BX OTHR DR: Dr. Femi Hernández, DO Tissues: A - Rectum, NOS Procedures: Surgery Specimen Level IV HEADER OPERATION: Colonoscopy PRE-OP DIAGNOSIS: Screen for colon cancer TISSUE SUBMITTED: A- Rectal polyp MICROSCOPIC DIAGNOSIS A. Rectum, polyp, biopsy: - Hyperplastic polyp. MICROSCOPIC DESCRIPTION Slides are reviewed. GROSS DESCRIPTION A. Received in fixative is one container labeled with the patient's name and designated Rectal polyp. The specimen consists of a 0.7 x 0.4 x 0.4 cm pink-red granular, sessile polyp. The resection margin is inked green and the specimen is bisected (on the long axis). Entirely submitted in 1 cassette. TN 02/22/2025 CPT:63777
[2025-02-22] MEDS: Lidocaine 1% (5 ml sdv) 5 ML Vial IV (08:04)
[2025-02-22] MEDS: Lactated Ringers 1,000 ML 1000 ML IV (08:07)
--- NOTE | 2025-02-22 08:22 | OP.COLON_ITS ---
Patient Name: Tu Bach Procedure Date: 02/22/2025 7:59 AM Date of : 1975 Age: 50 Procedure: Colonoscopy Indications: Screening for colorectal malignant neoplasm Providers: Sascha Guzman MD Medicines: Propofol per Anesthesia Patient Profile: This is a 50 year old male. Refer to note in patient chart for documentation of history and physical. Last Colonoscopy: none. The patient's first colonoscopy is today. Complications: No immediate complications. Estimated blood loss: Minimal. Procedure: Pre-Anesthesia Assessment: - Prior to the procedure, a History and Physical was performed, and patient medications and allergies were reviewed. The patient's tolerance of previous anesthesia was also reviewed. The risks and benefits of the procedure and the sedation options and risks were discussed with the patient. All questions were answered, and informed consent was obtained. Prior Anticoagulants: The patient has taken no anticoagulant or antiplatelet agents. After reviewing the risks and benefits, the patient was deemed in satisfactory condition to undergo the procedure. After I obtained informed consent, the scope was passed under direct vision. Throughout the procedure, the patient's blood pressure, pulse, and oxygen saturations were monitored continuously. The colonoscope was introduced through the anus and advanced to the cecum, identified by appendiceal orifice and ileocecal valve. The colonoscopy was performed without difficulty. The patient tolerated the procedure well. The quality of the bowel preparation was good. The ileocecal valve, appendiceal orifice, and rectum were photographed. Scope In: 8:09:32 AM Scope Withdrawal Time 0 hours 4 minutes 53 seconds Scope Out: 8:18:34 AM Total Procedure Duration Time 0 hours 9 minutes 2 seconds Findings: The entire examined colon appeared normal on direct and retroflexion views. A small polyp was found in the rectum. The polyp was removed with a hot snare. Resection and retrieval were complete. Impression: - The entire examined colon is normal on direct and retroflexion views. - One small polyp in the rectum, removed with a hot snare. Resected and retrieved. Recommendation: - Discharge patient to home. - Resume previous diet. - Continue present medications. - Await pathology results. - Repeat colonoscopy in 5 years for surveillance. Procedure Code(s): --- Professional --- 41705, Colonoscopy, flexible; with removal of tumor(s), polyp(s), or other lesion(s) by snare technique Diagnosis Code(s): --- Professional --- Z12.11, Encounter for screening for malignant neoplasm of colon D12.8, Benign neoplasm of rectum CPT copyright 2021 [employer]. All rights reserved. The codes documented in this report are preliminary and upon media reconciliation specialist review may be revised to meet current compliance requirements. Sascha Guzman MD 02/22/2025 8:21:48 AM This report has been signed electronically. Number of Addenda: 0 Note Initiated On: 02/22/2025 7:59 AM
--- NOTE | 2025-02-22 08:22 | OP.PROVAT_ITS ---
02/22/2025 Femi Hernández [address] [place] [address] Re : Colonoscopy procedure for Tu Bach Dear Dr. Hernández This procedure was performed on Saturday, February 22, 2025. My impressions and recommendations are as follows: Impressions : - The entire examined colon is normal on direct and retroflexion views. - One small polyp in the rectum, removed with a hot snare. Resected and retrieved. Recommendations : - Discharge patient to home. - Resume previous diet. - Continue present medications. - Await pathology results. - Repeat colonoscopy in 5 years for surveillance. My findings are described in the full procedure note, which is enclosed. If I can be of further assistance, please feel free to contact me at Doctor phone number(s): , Work: . Sincerely, Sascha Guzman MD 02/22/2025 8:21:48 AM This report has been signed electronically.
--- NOTE | 2025-02-22 08:24 | PCM.POSTANE2 ---
Anesthesia Postop Eval I Sum Anesthesia Postop Eval I Summary Anesthesia Postop Eval I Summary: Anesthesia Postop Eval I: Assessment Summary Airway patent Spontaneous unlabored respirations Mental status nausea Vomiting Anesthesia Postop Eval I: Fluid Summary Crystalloid volume administer (ml) Colloids volume administered ( ml) Blood Product volume administered (ml) Total IV fluid infused Anesthesia Postop Eval I: Summary Notes Anesthesia Complication Anesthesia Complication Comment: Post-operative progress note Anesthesia: Postop Eval II Evaluation Mental status: Awake and Calm Pain Level: 0 nausea: No Vomiting: No Complications Anesthesia Complication: No
--- NOTE | 2025-02-22 08:27 | PCM.POST.ANE ---
Anesthesia: Postop Eval I Current Vital Signs Temperature: 97.5 F Pulse Rate: 80 Blood Pressure: 135/64 Respiratory Rate: 18 Pulse Ox: 100 Oxygen Delivery Method: Room Air Assessment Airway patent: Yes Spontaneous unlabored respirations: Yes Mental status: Awake and Calm nausea: No Vomiting: No Anesthesia Complication: No Fluid Hydration Crystalloid volume administer (ml): 500 Total IV fluid infused: 500 Progress Note Anesthesia document: Postop Eval 1 completed: Yes
--- NOTE | 2025-02-22 10:26 | PCM.POST.ANE ---
Anesthesia: Postop Eval I Current Vital Signs Temperature: 98 F Pulse Rate: 74 Blood Pressure: 134/74 Respiratory Rate: 15 Pulse Ox: 98 Oxygen Delivery Method: Room Air Assessment Airway patent: Yes Spontaneous unlabored respirations: Yes Mental status: Awake and Calm nausea: No Vomiting: No Anesthesia Complication: No Fluid Hydration Crystalloid volume administer (ml): 700 Total IV fluid infused: 700 Progress Note Anesthesia document: Postop Eval 1 completed: No
== END 2025-02-22 08:54 | disposition home or self-care (01) ==
LOC: EN 06:48 → AC 06:49
PROVIDERS: PCP Family Medicine; Referring Provider Family Medicine; Visit Provider Surgery
PROC: 0DJD8ZZ Inspection of Lower Intestinal Tract, Via Natural or Artificial Opening Endoscopic (ICD-10-PCS; CPT 45378; principal; 2025-02-22 07:55)
DX: Z12.11 Encounter for screening for malignant neoplasm of colon (principal); E11.9 Type 2 diabetes mellitus without complications; K62.1 Rectal polyp; I10 Essential (primary) hypertension; E78.00 Pure hypercholesterolemia, unspecified; Z79.84 Long term (current) use of oral hypoglycemic drugs; Z79.899 Other long term (current) drug therapy; Z87.891 Personal history of nicotine dependence
CPT/HCPCS: 45385; 82962; 88305